=== PATIENT | female | born 1930 | race Caucasian/White ===

== ENCOUNTER 2016-11-17 05:14 | Inpatient (IN) | payer OTHER ==
[2016-09-10 12:48] VITALS: BMI 40.0
--- NOTE | 2016-09-10 13:13 | PAT Medication Instructions ---
Service Date Sep 10, 2016. Current Home Medication List Acetaminophen (Tylenol), 1,000 MG PO PRN Atorvastatin (Lipitor), 10 MG PO QPM Ibuprofen Tab (Advil), 400 MG PO PRN Levothyroxine Sodium (Levothyroxine Sodium), 1 TAB PO QAM Losartan Potassium (Cozaar), 25 MG PO QPM Metformin Hcl (Glucophage Ext Rel), 1,000 MG PO BID [Vitamin D], 1 TAB PO QAM Medication Instructions For Your Scheduled Surgery - Check with surgeon for instructions: Ibuprofen Tab (Advil), 400 MG PO PRN - Hold the following medications 48 hours prior to surgery: Metformin Hcl (Glucophage Ext Rel), 1,000 MG PO BID - Hold the following medications the morning of surgery: [Vitamin D], 1 TAB PO QAM - Take the following medications the morning of surgery with a sip of water: Levothyroxine Sodium (Levothyroxine Sodium), 1 TAB PO QAM Acetaminophen (Tylenol), 1,000 MG PO PRN (if needed) - Hold the following medications as scheduled the night before surgery: Losartan Potassium (Cozaar), 25 MG PO QPM - Take the following medications as scheduled the night before surgery: Atorvastatin (Lipitor), 10 MG PO QPM Acetaminophen (Tylenol), 1,000 MG PO PRN (if needed) If you have any questions please call us at [phone] or [phone] or [phone]
[2016-09-10 14:01] LABS: BASO % 0.2 %; BASO ABS # 0.03 K/uL (0-0.2); COMPLETE YES; EOS % 1.5 %; HEMATOCRIT 40.9 % (37-47); IG% 0.2 %; LYMPH % 30.6 %; LYMPH ABS # 4.37 K/uL (1.2-3.4); MEAN CORPUSCULAR HEMOGLOBIN 27.3 pg (25-34); MEAN CORPUSCULAR HGB CONC 32.5 g/dl (32-36); MEAN PLATELET VOLUME 10.4 fL (7.4-10.4); MONO % 6.2 %; NEUT % 61.3 %; PLATELET COUNT 343 K/uL (130-400); RED BLOOD COUNT 4.87 M/uL (4.2-5.4); WHITE BLOOD COUNT 14.26 K/uL (4.8-10.8)
[2016-09-10 14:11] LABS: PROTHROMBIN TIME (PATIENT) 10.2 SECONDS (9.0-12.0)
--- NOTE | 2016-09-10 14:14 | DIAGNOSTIC IMAGING REPORT ---
TWO VIEW CHEST CLINICAL HISTORY: Preoperative examination. FINDINGS: PA and lateral chest radiographs are obtained. No prior studies are available for comparison at the time of dictation. The PA view is degraded by patient rotation. The examination is also degraded by large body habitus. The heart is mildly enlarged and there is atherosclerotic calcification of the thoracic aorta. The pulmonary vasculature is noncongested. Nonspecific interstitial thickening is likely chronic. No airspace consolidation or pleural effusion is seen. A calcified granuloma is noted in the right upper lobe. There is no pneumothorax. The skeletal structures are osteopenic. The bony thorax appears intact. IMPRESSION: Mild cardiac enlargement with no active disease in the chest. Electronically signed by: Sae Hunt M.D. 09/10/2016 2:12 PM Dictated Date/Time: 09/10/2016 2:08 PM
[2016-09-10 14:23] LABS: URINE APPEARANCE CLEAR (CLEAR); URINE BILIRUBIN NEG (NEG); URINE COLOR YELLOW; URINE EPITHELIAL CELL AUTO >30 /lpf (0-5); URINE NITRITE NEG (NEG); URINE SPECIFIC GRAVITY 1.016 (1.000-1.030); UROBILINOGEN NEG (NEG); ZZUR CULT IF INDIC CLEAN CATCH YES
[2016-09-10 14:29] LABS: MANUAL MICROSCOPIC REQUIRED? NO; REVIEW REQ? YES
[2016-09-10 14:40] LABS: ESTIMATED AVERAGE GLUCOSE 220 mg/dl; HA1C FLAG Normal (Normal)
[2016-09-10 15:05] LABS: CREATININE 1.4 mg/dl (0.60-1.20)
[2016-09-10 15:06] LABS: BUN/CREATININE RATIO 27.8 (10-20); CALCIUM 9.4 mg/dl (8.5-10.1); POTASSIUM 4.4 mmol/L (3.5-5.1)
--- NOTE | 2016-10-29 08:05 | HISTORY & PHYSICAL EXAMINATION ---
DATE OF ADMISSION: 11/18/2016 CHIEF COMPLAINT: Left knee pain. HISTORY OF PRESENT ILLNESS: Ms. Moralez is an 86-year-old female with a 3-4 month history of left knee pain. The patient states her pain has gotten significantly worse over the last few weeks. She has failed injections, home walking program, NSAIDs. She currently ambulates with a walker. The patient has pain with her daily activities. She has limited standing and walking tolerance. Pain is worse with weightbearing. The patient has failed conservative treatment options and is now scheduled for left total knee arthroplasty. PAST SURGICAL HISTORY: Carpal tunnel bilateral, tarsal tunnel bilateral feet, right knee arthroscopy, hysterectomy. SOCIAL HISTORY: The patient denies alcohol or tobacco use. She lives in an apartment building with her daughter. She is retired. FAMILY HISTORY: Negative for DVT. MEDICATIONS: Levothyroxine 137 mcg, metformin 1000 mg, glyburide 2.5 mg, prednisone 10 mg, atorvastatin 10 mg, losartan 25 mg, metronidazole 0.75%, minocycline 50 mg daily. ALLERGIES: PENICILLIN, MORPHINE, HYDROCODONE, OXYCODONE, HYDROMORPHONE. REVIEW OF SYSTEMS: See HPI. Ten other systems reviewed, all negative. PHYSICAL EXAMINATION: VITAL SIGNS: Height 4 feet 10 inches, weight 192 pounds. BMI is 40. GENERAL: This is a well-developed, well-nourished female who is alert and oriented x3. Mood and affect are appropriate. HEENT: Normocephalic, atraumatic. Mucous membranes are moist and intact. NECK: Supple without lymphadenopathy. HEART: Regular rate and rhythm without murmurs, rubs or gallops. LUNGS: Clear to auscultation without wheezes or rhonchi. ABDOMEN: Soft and nontender. Bowel sounds are equal and active. EXTREMITIES: No ecchymosis, redness or warmth. She has a valgus deformity. Range of motion is from 0-100 degrees. She has no laxity. She is neurovascularly intact with +5/5 strength. X-RAY EXAMINATION: AP and lateral views show joint space narrowing and osteophyte formation. IMPRESSION: Degenerative joint disease, left knee. PLAN: The patient will be admitted for a left total knee arthroplasty. We will plan on aspirin for DVT prophylaxis. The patient is requesting possibly going to [facility] upon discharge.
[2016-10-29 16:14] VITALS: BMI 40.0
[~2016-11-17] VITALS: Ht 147.3 cm; Wt 87.4 kg
[2016-11-17] VITALS (8 sets, daily range): BP systolic 119–168; BP diastolic 65–76; PULSE 60–93; TEMP 36.4–36.9; O2SAT 91–99; Ht 147.3 cm; Wt 87.4 kg
[~2016-11-17 05:14] MED LIST: ACET-1256 PO; ATOR10TA88 PO; GLYB5TAB8 PO; IBUP-103 PO; LEVO137T3 PO; LOSA1TAB PO; METF1TAB53 PO; VITAMIN D PO
[2016-11-17] MEDS ORDERED: FAMOTIDINE 20 MG TAB PO SCH (06:00)
[2016-11-17] MEDS ORDERED: CLINDAMYCIN 600 MG/54 ML D5W IV SCH ×2 (06:00)
[2016-11-17] MEDS: TRANEXAMIC ACID INJ 1,000 MG in SODIUM CHLORIDE 0.9% 100ML 100 ML IV SCH ×2 (06:00→06:30)
[2016-11-17] MEDS ORDERED: METOCLOPRAMIDE HCL 10 MG TAB PO SCH (06:00)
[2016-11-17] MEDS ORDERED: ROPIVACAINE 5MG/ML 30 ML 150 MG, BUPIVACAINE/EPINEPHR 0.5% MPF 30 ML, KETOROLAC TROMETH... INFIL SCH ×7 (06:00)
[2016-11-17] MEDS ORDERED: LACTATED RINGER'S 1000ML 1,000 ML IV SCH ×2 (06:00)
[2016-11-17] MEDS ORDERED: GABAPENTIN 300 MG CAP PO SCH (06:00)
[2016-11-17] MEDS ORDERED: CeleBREX 200 MG CAP PO SCH (06:00)
[2016-11-17] MEDS ORDERED: VANCOMYCIN INJ 1,300 MG in SODIUM CHLORIDE 0.9% 250ML 250 ML IV SCH (06:00)
[2016-11-17] MEDS ORDERED: ACETAMINOPHEN 500 MG TAB PO SCH (06:00)
[2016-11-17] MEDS ORDERED: DEXAMETHASONE 4 MG TAB PO SCH (06:00)
[2016-11-17] MEDS ORDERED: LACTATED RINGER'S 1000ML 500 ML IV ONE (06:00)
[2016-11-17] MEDS ORDERED: BUPIVACAINE 0.25% 30 ML VIAL ONE (06:26)
[2016-11-17] MEDS ORDERED: BUPIVACAINE 0.5 % 5 MG/1 ML PF 10ML VIAL ONE (06:26)
[2016-11-17 06:42] LABS: PARTIAL THROMBOPLASTIN RATIO 0.9; PROTHROMBIN TIME (PATIENT) 10.3 SECONDS (9.0-12.0)
[2016-11-17] MEDS ORDERED: MIDAZOLAM HCL 1 MG/ML 2ML VIAL ONE ×2 (06:45→07:50)
[2016-11-17] MEDS ORDERED: FENTANYL CITRATE INJ 50 MCG/1 ML 2 ML VIAL ONE (06:46)
[2016-11-17] MEDS ORDERED: ORTHO JOINT ANESTHETIC ONE (06:52)
[2016-11-17] MEDS ORDERED: BACITRACIN 50000 UNIT VIAL ONE ×2 (06:52→08:02)
[2016-11-17] MEDS ORDERED: POVIDONE-IODINE OP SOLN 30 ML BTL ONE ×2 (06:52→08:02)
--- NOTE | 2016-11-17 06:54 | History & Physical Bridge Note ---
H&P Re-Evaluation Bridge Note: I have examined the patient, reviewed the History & Physical and in the interval since the performance of the History & Physical I have noted the following changes of clinical significance: No changes noted
[2016-11-17] MEDS ORDERED: PROPOFOL IV EMULSION 10 MG/ML 20 ML VIAL IV ONE (07:55)
[2016-11-17] MEDS ORDERED: LIDOCAINE HCL 2% 2 ML VIAL (20MG/ML) ONE (07:55)
[2016-11-17] MEDS ORDERED: KETOROLAC TROMETHAMINE 15 MG/ML VIAL IV. PRN (09:00)
[2016-11-17] MEDS ORDERED: LABETALOL HCL IV 5 MG/ML 20ML IV PRN (09:00)
[2016-11-17] MEDS ORDERED: ONDANSETRON INJ 2 MG/ML 2 ML VIAL IV PRN ×2 (09:00→09:45)
[2016-11-17] MEDS ORDERED: HYDROmorphone INJ 1 MG/ML SYR IV PRN (09:00)
[2016-11-17] MEDS ORDERED: MEPERIDINE HCL 25 MG/ML CARP IV PRN ×2 (09:00→09:45)
[2016-11-17] MEDS ORDERED: ATROPINE SULFATE 0.1 MG/ML 5ML SYR IV PRN (09:00)
[2016-11-17] MEDS ORDERED: FENTANYL CITRATE INJ 50 MCG/1 ML 2 ML VIAL IV PRN (09:00)
[2016-11-17] MEDS ORDERED: EpHEDrine SULFATE INJ 50 MG/ML AMP IV PRN (09:00)
--- NOTE | 2016-11-17 09:07 | [facility] Operative Report ---
Operative Report Operative Date Nov 17, 2016. Pre-Operative Diagnosis Left Knee Degenerative Joint Disease Post-Operative Diagnosis Same as Preop Procedure(s) Performed Left Total Knee Arthroplasty utilizing [employer] journey 2 patient matched total knee arthroplasty size 4 femur to tibia 11 poly-[address] Crockett Him Specialist Surgeon(s) Narendra Reed PA-C Estimated Blood Loss 5 ml Findings Severe DJD with valgus alignment left knee conservative management Specimens A. 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 bilateral degenerative joint disease left knee with valgus alignment to a conservative management presents for left total knee arthroplasty thorough discussion regarding risk altercations Description of Procedure After proper prepping and draping of the left lower extremity anterior midline incision was made over the region of the extensor extensor mechanism after meticulous hemostasis was obtained and maintained in subcutaneous tissues a medial parapatellar incision was made The patella was subluxed lateralward the medial lateral gutter were cleaned from any hypertrophic synovitis and scar tissue of the distal femoral block was placed and the distal femoral osteotomy cut was made subsequently the chamfers anterior and posterior osteotomy cuts were made utilizing the 4-in-1 block the tibia was subsequently subluxed anteriorward medial and ateral meniscal remnants were excised in their entirety remnants of the anterior and posterior cruciate ligaments were excised in their entirety excellent exposure of the proximal tibia was obtained the tibial osteotomy guide was placed on the proximal tibial osteotomy cut was made once again the knee was irrigated with copious amounts of sterile saline solution the patella was subsequently everted lateralward thickened scar tissue around the patella was removed the patella was subsequently cut utilizing a freehand technique and was drilled prepared for final preparation and placement of patella socially flexion-extension gaps were checked and the equal and symmetric trials were placed to the appropriate femoral and tibial trials with poly-spacer being placed for equal flexion and extension gaps and full range of motion including extension to 0 and flexion to 140 the trial components after having been taken to recovery range of motion was subsequently removed meticulous hemostasis was obtained and maintained subsequently a knee block injection of joint cocktail including ropivacaine 0.5% 150 mg. Bupivacaine 0.5 % epinephrine 1-200,030 mL's toradol 30 mg dexamethasone 4 mg ketamine 10 mg clonidine 100 micrograms normal saline solution 30 mg was infiltrated into the soft tissues of the posterior knee medial lateral gutters and periosteal synovium special attention was paid to protect neurovascular structures at all times subsequently trial components having been removed the knee was irrigated with sterile saline solution. debris was removed the proximal tibia was subsequently prepared and was made ready for the placement of the tibial component tibial component was also cemented and tamped into position the femoral component was subsequently placed and cemented in the position the patellar component was subsequently cemented in position because hemostasis once again obtained and maintained wound having been thoroughly irrigated with debridement and debridement lavage was performed as well as a medial parapatellar incision closed with #1 Vicryl in interrupted fashion subcutaneous was closed with #2 Vicryl skin was closed with skin clips. PA-C was necessary for prepping and drapping as well as wound closure of deep fascia Sub cutaneous tissue and skin and was necessary for the case. A sterile compressive dressing was placed patient was taken to recovery in stable condition of report dictated by Bon I attest to the content of the Intraoperative Record and any orders documented therein. Any exceptions are noted below. I attest to the content of the Intraoperative Record and any orders documented therein. Any exceptions are noted below.
[2016-11-17] MEDS ORDERED: BISACODYL 10 MG SUPP PR PRN (09:45)
[2016-11-17] MEDS ORDERED: SOD PHOSPHATE/SOD BIPHOSPHATE ENEMA 132 ML BTL PR PRN (09:45)
[2016-11-17] MEDS ORDERED: ALUMINUM/MAGNESIUM/SIMETH (MAALOX MAX) 30 ML UDC PO PRN (09:45)
--- NOTE | 2016-11-17 10:08 | DIAGNOSTIC IMAGING REPORT ---
LEFT KNEE 2 VIEWS History: Left total knee arthroplasty. Degenerative arthritis. Postop. FINDINGS: The patient is status post a left total knee arthroplasty. The hardware is intact. No fracture or dislocation. Surgical drains are in place. IMPRESSION: Left total knee arthroplasty. No evidence for hardware complication. Electronically signed by: Umberto Ta M.D. 11/17/2016 10:07 AM Dictated Date/Time: 11/17/2016 10:06 AM
--- NOTE | 2016-11-17 11:37 | Anesthesiology Progress Note ---
Anesthesia Post Op Note Date & Time Nov 17, 2016 at 11:37 Vital Signs Pain Intensity: 0.0 Vital Signs Past 12 Hours Date Time Temp Pulse Resp B/P (MAP) Pulse Ox O2 Delivery O2 Flow Rate FiO2 11/17/16 11:15 36.6 74 18 121/74 (90) 95 Nasal Cannula 2.0 11/17/16 10:45 94 Nasal Cannula 4.0 11/17/16 10:45 Nasal Cannula 4.0 11/17/16 10:31 125/67 11/17/16 10:30 76 0 11/17/16 10:30 76 0 93 11/17/16 10:26 125/69 11/17/16 10:25 75 0 93 11/17/16 10:25 76 0 11/17/16 10:25 36.3 75 18 138/64 93 Nasal Cannula 2 11/17/16 10:21 138/64 11/17/16 10:20 76 4 11/17/16 10:20 76 4 92 11/17/16 10:16 129/68 11/17/16 10:15 74 5 93 11/17/16 10:15 75 5 11/17/16 10:11 130/64 11/17/16 10:10 76 7 11/17/16 10:10 76 7 93 11/17/16 10:06 129/65 11/17/16 10:05 76 6 11/17/16 10:05 79 6 94 11/17/16 10:01 132/68 11/17/16 10:00 75 3 98 11/17/16 10:00 74 3 11/17/16 09:56 130/62 11/17/16 09:55 74 8 11/17/16 09:55 74 8 98 11/17/16 09:51 133/59 11/17/16 09:50 72 7 11/17/16 09:50 72 7 98 11/17/16 09:46 138/65 11/17/16 09:45 73 4 98 11/17/16 09:45 73 4 11/17/16 09:41 136/72 11/17/16 09:40 75 12 96 11/17/16 09:40 36 73 16 136/72 98 Mask 10 11/17/16 09:40 75 12 11/17/16 05:56 36.9 93 18 168/76 95 Room Air Notes Mental Status: alert / awake / arousable, participated in evaluation Pt Amnestic to Procedure: Yes Nausea / Vomiting: adequately controlled Pain: adequately controlled Airway Patency, RR, SpO2: stable & adequate BP & HR: stable & adequate Hydration State: stable & adequate Neuraxial Anesthesia: was administered, sensory block is resolving Anesthetic Complications: no major complications apparent
[2016-11-17] MEDS: SODIUM CHLORIDE 0.9% 1000ML 1,000 ML IV SCH ×2 (11:44→21:18)
[2016-11-17] MEDS ORDERED: GLUCAGON FOR INJ 1 MG VIAL SQ PRN (13:00)
[2016-11-17] MEDS ORDERED: GLUCOSE 40% GEL 15 GM TUBE PO PRN (13:00)
[2016-11-17] MEDS ORDERED: DEXTROSE 50% 50 ML SYR IV PRN (13:00)
[2016-11-17] MEDS ORDERED: GLUCOSE 10 TABS/TUBE PO PRN (13:00)
--- NOTE | 2016-11-17 13:11 | Medical Consult ---
Consultation Date of Consultation: Nov 17, 2016. Attending Physician: Eleazar Crockett D.O. Reason for Consultation: post-op medical management of T2DM, etc History of Present Illness 86yo female with history of T2DM, HTN, and hyperlipidemia who underwent an elective left total knee replacement earlier today by Dr. Crockett. Prior to the surgery she had had 3-4 months of worsening pain in the left knee. She had used pain medications and injections to the knee without relief. Post-operatively she denied any complaints. Specifically, denied any chest pain , dyspnea, abdominal pain, nausea, emesis, headache, etc. Past Medical/Surgical History PMH: 1. T2DM 2. HTN 3. Hyperlipidemia 4. Hypothyroidism PSH: 1. MYRA with BSO 2. carpal tunnel and tarsal tunnel release 3. 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) Allergies Coded Allergies: Penicillins (Verified Allergy, Unknown, HIVES, 11/17/16) Codeine (Verified Adverse Reaction, Intermediate, "put me out for 6 hours ", 11/17/16) Hydromorphone (Verified Adverse Reaction, Intermediate, "put me out for 6 hours", 11/17/16) Propoxyphene (Verified Adverse Reaction, Intermediate, "puts me out for 6 hours", 11/17/16) Morphine (Verified Adverse Reaction, Unknown, MORPHINE,CODEINE AND RELATED -NAUSEA VOMITING FLUSHING, 11/16/16) HYDROCODONE,OXYCODONE, HYDROMORPHONE-NAUSEA AND VOMITING Home Medications Reported Home Medications Medications Dose Route/Sig Max Daily Dose Days Date Category Micronase (Glyburide) 5 Mg Tab 1.25 Mg PO QAM 10/29/16 Reported Tylenol (Acetaminophen) 500 Mg Tab 1,000 Mg PO PRN 09/10/16 Reported Advil (Ibuprofen) 200 Mg Tab 400 Mg PO PRN 09/10/16 Reported [Vitamin D] 1 Tab PO QAM 09/10/16 Reported Cozaar (Losartan Potassium) 25 Mg Tab 25 Mg PO QPM 09/10/16 Reported Lipitor (Atorvastatin Calcium) 10 Mg Tab 10 Mg PO QPM 09/10/16 Reported Glucophage Ext Rel (Metformin Hcl) 1,000 Mg Tab 1,000 Mg PO BID 09/10/16 Reported Levothyroxine Sodium 137 Mcg Tab 1 Tab PO QAM 90 09/10/16 Reported Current Inpatient Medications Current Inpatient Medications Medications (Trade) Dose Ordered Sig/German Route Start Time Stop Time Status Last Admin Dose Admin Acetaminophen (Tylenol Tab) 1,000 mg PREOP PO 11/17/16 06:00 11/17/16 18:00 11/17/16 06:23 1,000 MG Celecoxib (CeleBREX CAP) 200 mg PREOP PO 11/17/16 06:00 11/17/16 18:00 Dexamethasone (Decadron Tab) 8 mg PREOP PO 11/17/16 06:00 11/17/16 18:00 11/17/16 06:22 8 MG Famotidine (Pepcid Tab) 20 mg PREOP PO 11/17/16 06:00 11/17/16 18:00 11/17/16 06:23 20 MG Gabapentin (Neurontin Cap) 300 mg PREOP PO 11/17/16 06:00 11/17/16 18:00 11/17/16 06:22 300 MG Metoclopramide HCl (Reglan Tab) 10 mg PREOP PO 11/17/16 06:00 11/17/16 18:00 11/17/16 06:22 10 MG Tranexamic Acid 1000 mg/Sodium Chloride 110 ml @ 660 mls/hr TODAY@06,0630 IV 11/17/16 06:00 11/17/16 18:00 Vancomycin HCl 1300 mg/Sodium Chloride 276 ml @ 125 mls/hr TODAY@0600 IV 11/17/16 06:00 11/17/16 18:00 11/17/16 05:53 125 MLS/HR Lactated Ringer's 1,000 ml @ 60 mls/hr [id number] IV 11/17/16 06:00 11/17/16 22:39 Lactated Ringer's 1,000 ml @ 15 mls/hr Q24H IV 11/17/16 06:00 11/18/16 05:59 Miscellaneous Information (Order Awaiting Action) 1 ea Q2H N/A 11/16/16 22:00 12/16/16 21:59 Clindamycin Phosphate 54 ml @ 100 mls/hr PREOP IV 11/17/16 06:00 11/17/16 18:00 Fentanyl Citrate (Fentanyl Inj) 50 mcg Q5M PRN IV 11/17/16 09:00 11/17/16 14:00 Hydromorphone HCl (Dilaudid Inj) 0.5 mg Q5M PRN IV 11/17/16 09:00 11/17/16 14:00 Ketorolac Tromethamine (Toradol Inj) 15 mg ONE PRN IV. 11/17/16 09:00 11/17/16 14:00 Meperidine HCl (Demerol Inj) 25 mg Q5M PRN IV 11/17/16 09:00 11/17/16 14:00 Ondansetron HCl (Zofran Inj) 4 mg ONE PRN IV 11/17/16 09:00 11/17/16 14:00 Labetalol HCl (Normodyne IV) 5 mg Q5M PRN IV 11/17/16 09:00 11/17/16 14:00 Ephedrine Sulfate (EpHEDrine SULFATE INJ) 5 mg Q5M PRN IV 11/17/16 09:00 11/17/16 14:00 Atropine Sulfate (Atropine Sulfate 0.1MG/Ml Inj) 0.5 mg Q1M PRN IV 11/17/16 09:00 11/17/16 14:00 Sodium Chloride 1,000 ml @ 100 mls/hr Q10H IV 11/17/16 11:30 11/18/16 11:29 11/17/16 11:44 100 MLS/HR Clindamycin Phosphate 600 mg/ Dextrose 54 ml @ 100 mls/hr Q8H IV 11/17/16 18:00 11/18/16 02:33 Celecoxib (CeleBREX CAP) 200 mg BID PO 11/17/16 21:00 12/17/16 20:59 Acetaminophen (Tylenol Tab) 1,000 mg Q8H PO 11/17/16 18:00 12/17/16 17:59 Magnesium Hydroxide (Milk Of Magnesia Susp) 30 ml Q6H PRN PO 11/17/16 09:45 12/17/16 09:44 Bisacodyl (Dulcolax Supp) 10 mg DAILY PRN DC 11/17/16 09:45 12/17/16 09:44 Sodium Biphosphate/ Sodium Phosphate (Fleet Enema) 132 ml DAILY PRN DC 11/17/16 09:45 12/17/16 09:44 Senna (Senokot Tab) 17.2 mg HS PO 11/17/16 21:00 12/17/16 20:59 Docusate Sodium (coLACE CAP) 100 mg BID PO 11/17/16 21:00 12/17/16 20:59 Diphenhydramine HCl (Benadryl Cap) 25 mg Q8H PRN PO 11/17/16 09:45 12/17/16 09:44 Al Hydrox/Mg Hydrox/Simethicone (Maalox Max Susp) 15 ml Q4H PRN PO 11/17/16 09:45 12/17/16 09:44 Multivitamins (Multivitamin Tab) 1 tab QAM PO 11/18/16 09:00 12/18/16 08:59 Ondansetron HCl (Zofran Inj) 4 mg Q6H PRN IV 11/17/16 09:45 12/17/16 09:44 Pantoprazole Sodium (Protonix Tab) 40 mg QAM PO 11/18/16 09:00 12/18/16 08:59 Aspirin (Ecotrin Tab) 81 mg BID PO 11/17/16 21:00 12/17/16 20:59 Atorvastatin Calcium (Lipitor Tab) 10 mg QPM PO 11/17/16 21:00 12/17/16 20:59 Levothyroxine Sodium (Synthroid Tab) 137 mcg DAILYBB PO 11/18/16 06:00 12/18/16 05:59 Cholecalciferol (Vitamin D Tab) 1 inter.unit QAM PO 11/18/16 09:00 12/18/16 08:59 Tapentadol (Nucynta Er Tab) 50 mg Q12 PO 11/17/16 21:00 12/17/16 20:59 Tapentadol (Nucynta Tab) 1 tab for pain rating ... Q4H PRN PO 11/17/16 09:45 12/17/16 09:44 Meperidine HCl (Demerol Inj) 25 mg Q3HWA PRN IV 11/17/16 09:45 12/01/16 09:44 Review of Systems Constitutional: No fever, No chills, No sweats ENT: No nasal symptoms Respiratory: No cough, No dyspnea on exertion, No dyspnea at rest Cardiovascular: No chest pain Abdomen: No pain, No nausea, No vomiting, No diarrhea, No constipation, No GI bleeding Genitourinary - Female: No dysuria, No hematuria Neurologic: No paralysis, No weakness, No numbness/tingling, No vertigo, No balance problems Endocrine: No fatigue Integumentary: No rash Physical Exam Date Time Temp Pulse Resp B/P (MAP) Pulse Ox O2 Delivery O2 Flow Rate FiO2 11/17/16 11:45 36.4 72 12 119/73 (88) 96 Nasal Cannula 2.0 11/17/16 11:15 36.6 74 18 121/74 (90) 95 Nasal Cannula 2.0 11/17/16 10:45 94 Nasal Cannula 4.0 11/17/16 10:45 Nasal Cannula 4.0 11/17/16 10:31 125/67 11/17/16 10:30 76 0 11/17/16 10:30 76 0 93 11/17/16 10:26 125/69 11/17/16 10:25 75 0 93 11/17/16 10:25 76 0 11/17/16 10:25 36.3 75 18 138/64 93 Nasal Cannula 2 11/17/16 10:21 138/64 11/17/16 10:20 76 4 11/17/16 10:20 76 4 92 11/17/16 10:16 129/68 11/17/16 10:15 74 5 93 11/17/16 10:15 75 5 11/17/16 10:11 130/64 11/17/16 10:10 76 7 11/17/16 10:10 76 7 93 11/17/16 10:06 129/65 11/17/16 10:05 76 6 11/17/16 10:05 79 6 94 11/17/16 10:01 132/68 11/17/16 10:00 75 3 98 11/17/16 10:00 74 3 11/17/16 09:56 130/62 11/17/16 09:55 74 8 11/17/16 09:55 74 8 98 11/17/16 09:51 133/59 11/17/16 09:50 72 7 11/17/16 09:50 72 7 98 11/17/16 09:46 138/65 11/17/16 09:45 73 4 98 11/17/16 09:45 73 4 11/17/16 09:41 136/72 11/17/16 09:40 75 12 96 11/17/16 09:40 36 73 16 136/72 98 Mask 10 11/17/16 09:40 75 12 11/17/16 05:56 36.9 93 18 168/76 95 Room Air General Appearance: no apparent distress, + obese Head: normocephalic, atraumatic Eyes: PERRL ENT: pharynx normal Neck: no JVD Respiratory/Chest: lungs clear, no respiratory distress, no accessory muscle use Cardiovascular: regular rate, rhythm, no gallop, normal peripheral pulses, + systolic murmur (1/6 BRUCE LSB) Abdomen/GI: normal bowel sounds, non tender, soft, no organomegaly Extremities/Musculoskelatal: no pedal edema (right ankle), + pedal edema (left ankle), + pertinent finding (pulses 2+ b/l) Neurologic/Psych: no motor/sensory deficits, alert, normal reflexes, oriented x 3 Skin: no rash, + pertinent finding (left knee wrapped in large JEFF dressing; drain also in place) Laboratory Results Last 24 Hours Test 11/17/16 06:16 11/17/16 10:27 11/17/16 11:52 Prothrombin Time 10.3 SECONDS Prothromb Time International Ratio 1.0 Activated Partial Thromboplast Time 24.5 SECONDS Partial Thromboplastin Ratio 0.9 Albumin 3.9 gm/dl Bedside Glucose 202 mg/dl 213 mg/dl Assessment & Plan 86yo female with history of T2DM, HTN, and hyperlipidemia who underwent an elective left total knee replacement earlier today by Dr. Crockett. 1. left TKR - DVT proph, pain control, fluids, dispo planning - per orthopedic team. 2. T2DM - uncontrolled due to stress of surgery & perioperative steroids. Hold oral agents. Start lantus 10 units daily, first dose now. Novolog - use goal range of 140-180 with correction factor of 35 and carb ratio of 1:10. The steroids will have its effects for another 24 hours or so and thus additional insulin adjustments will be likely. 3. HTN - BPs are controlled at this time. Would hold the losartan until stability of creatinine can be confirmed by AM labs tomorrow. 4. hyperlipidemia - continue her statin agent. 5. CKD, stage uncertain - previous preop labs showed creatinine clearance of < 30 c/w stage 4 CKD. Will check BMP in am and follow. Caution with use of NSAIDS. 6. hypothyroidism - continue synthroid as previous. Thank you for this consult. Additional Copies To Yolis Bautista D.O.
[2016-11-17] MEDS ORDERED: INSULIN GLARGINE SOLOSTAR 100 UNITS/ML 3 ML PEN SC ONE (13:30)
--- NOTE | 2016-11-17 13:47 | Medical Student: [facility] ---
Consultation Date of Consultation: Nov 17, 2016. History of Present Illness Chula Moralez is an 86 year old woman with a history of Type II DM, HTN, Hyperlipidemia, Hypothyroidism, and Stage III CKD admitted for post operation observation following an elective total knee arthroplasty of the left knee this morning by Dr. Crockett. Prior to surgery, she had a 3-4 month history of left knee pain that began to affect her activities of daily living. She failed conservative treatment of joint injections and pain medication, and elected to have surgery. She was accompanied by her daughter in the room during my visit. Mrs. Quiros denies any complaints at this time. She denies headache, lightheadedness, chest pain, palpitations, shortness of breath, nausea, vomiting , numbness, paralysis, etc. Past Medical/Surgical History Medical History: PMH: 1. T2DM 2. CKD Stage III 3. HTN 4. Hyperlipidemia 5. Hypothyroidism Surgical History: PSH: 1. Total Abdonminal Hysterectomy with Bilateral Salpingo-Oophorectomy 2. Carpal tunnel and tarsal tunnel release 3. 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) Review of Systems Constitutional: No fever, No chills, No sweats Eyes: No worsening of vision, No problem reported ENT: + hearing loss (normal chronic hard of hearing), No problem reported Respiratory: No cough, No shortness of breath, No problem reported Cardiac: No chest pain, No palpitations Abdomen: No pain, No nausea, No vomiting, No diarrhea, No constipation, No GI bleeding Musculoskeletal: + problem reported (negative other than left leg due to surgery) Female : No dysuria, No hematuria Neurologic: No paralysis, No weakness, No numbness/tingling Heme: No abnormal bleeding/bruising, No problem reported Skin: No rash, No itch Allergies Coded Allergies: Penicillins (Verified Allergy, Unknown, HIVES, 11/17/16) Codeine (Verified Adverse Reaction, Intermediate, "put me out for 6 hours ", 11/17/16) Hydromorphone (Verified Adverse Reaction, Intermediate, "put me out for 6 hours", 11/17/16) Propoxyphene (Verified Adverse Reaction, Intermediate, "puts me out for 6 hours", 11/17/16) Morphine (Verified Adverse Reaction, Unknown, MORPHINE,CODEINE AND RELATED -NAUSEA VOMITING FLUSHING, 11/16/16) HYDROCODONE,OXYCODONE, HYDROMORPHONE-NAUSEA AND VOMITING Medications Current Inpatient Medications Medications (Trade) Dose Ordered Sig/German Route Start Time Stop Time Status Last Admin Dose Admin Acetaminophen (Tylenol Tab) 1,000 mg PREOP PO 11/17/16 06:00 11/17/16 18:00 11/17/16 06:23 1,000 MG Celecoxib (CeleBREX CAP) 200 mg PREOP PO 11/17/16 06:00 11/17/16 18:00 Dexamethasone (Decadron Tab) 8 mg PREOP PO 11/17/16 06:00 11/17/16 18:00 11/17/16 06:22 8 MG Famotidine (Pepcid Tab) 20 mg PREOP PO 11/17/16 06:00 11/17/16 18:00 11/17/16 06:23 20 MG Gabapentin (Neurontin Cap) 300 mg PREOP PO 11/17/16 06:00 11/17/16 18:00 11/17/16 06:22 300 MG Metoclopramide HCl (Reglan Tab) 10 mg PREOP PO 11/17/16 06:00 11/17/16 18:00 11/17/16 06:22 10 MG Tranexamic Acid 1000 mg/Sodium Chloride 110 ml @ 660 mls/hr TODAY@06,0630 IV 11/17/16 06:00 11/17/16 18:00 Vancomycin HCl 1300 mg/Sodium Chloride 276 ml @ 125 mls/hr TODAY@0600 IV 11/17/16 06:00 11/17/16 18:00 11/17/16 05:53 125 MLS/HR Lactated Ringer's 1,000 ml @ 60 mls/hr [id number] IV 11/17/16 06:00 11/17/16 22:39 Lactated Ringer's 1,000 ml @ 15 mls/hr Q24H IV 11/17/16 06:00 11/18/16 05:59 Clindamycin Phosphate 54 ml @ 100 mls/hr PREOP IV 11/17/16 06:00 11/17/16 18:00 Fentanyl Citrate (Fentanyl Inj) 50 mcg Q5M PRN IV 11/17/16 09:00 11/17/16 14:00 Hydromorphone HCl (Dilaudid Inj) 0.5 mg Q5M PRN IV 11/17/16 09:00 11/17/16 14:00 Ketorolac Tromethamine (Toradol Inj) 15 mg ONE PRN IV. 11/17/16 09:00 11/17/16 14:00 Meperidine HCl (Demerol Inj) 25 mg Q5M PRN IV 11/17/16 09:00 11/17/16 14:00 Ondansetron HCl (Zofran Inj) 4 mg ONE PRN IV 11/17/16 09:00 11/17/16 14:00 Labetalol HCl (Normodyne IV) 5 mg Q5M PRN IV 11/17/16 09:00 11/17/16 14:00 Ephedrine Sulfate (EpHEDrine SULFATE INJ) 5 mg Q5M PRN IV 11/17/16 09:00 11/17/16 14:00 Atropine Sulfate (Atropine Sulfate 0.1MG/Ml Inj) 0.5 mg Q1M PRN IV 11/17/16 09:00 11/17/16 14:00 Sodium Chloride 1,000 ml @ 100 mls/hr Q10H IV 11/17/16 11:30 11/18/16 11:29 11/17/16 11:44 100 MLS/HR Clindamycin Phosphate 600 mg/ Dextrose 54 ml @ 100 mls/hr Q8H IV 11/17/16 18:00 11/18/16 02:33 Celecoxib (CeleBREX CAP) 200 mg BID PO 11/17/16 21:00 12/17/16 20:59 Acetaminophen (Tylenol Tab) 1,000 mg Q8H PO 11/17/16 18:00 12/17/16 17:59 Magnesium Hydroxide (Milk Of Magnesia Susp) 30 ml Q6H PRN PO 11/17/16 09:45 12/17/16 09:44 Bisacodyl (Dulcolax Supp) 10 mg DAILY PRN VA 11/17/16 09:45 12/17/16 09:44 Sodium Biphosphate/ Sodium Phosphate (Fleet Enema) 132 ml DAILY PRN VA 11/17/16 09:45 12/17/16 09:44 Senna (Senokot Tab) 17.2 mg HS PO 11/17/16 21:00 12/17/16 20:59 Docusate Sodium (coLACE CAP) 100 mg BID PO 11/17/16 21:00 12/17/16 20:59 Diphenhydramine HCl (Benadryl Cap) 25 mg Q8H PRN PO 11/17/16 09:45 12/17/16 09:44 Al Hydrox/Mg Hydrox/Simethicone (Maalox Max Susp) 15 ml Q4H PRN PO 11/17/16 09:45 12/17/16 09:44 Multivitamins (Multivitamin Tab) 1 tab QAM PO 11/18/16 09:00 12/18/16 08:59 Ondansetron HCl (Zofran Inj) 4 mg Q6H PRN IV 11/17/16 09:45 12/17/16 09:44 Pantoprazole Sodium (Protonix Tab) 40 mg QAM PO 11/18/16 09:00 12/18/16 08:59 Aspirin (Ecotrin Tab) 81 mg BID PO 11/17/16 21:00 12/17/16 20:59 Atorvastatin Calcium (Lipitor Tab) 10 mg QPM PO 11/17/16 21:00 12/17/16 20:59 Levothyroxine Sodium (Synthroid Tab) 137 mcg DAILYBB PO 11/18/16 06:00 12/18/16 05:59 Cholecalciferol (Vitamin D Tab) 1 inter.unit QAM PO 11/18/16 09:00 12/18/16 08:59 Tapentadol (Nucynta Er Tab) 50 mg Q12 PO 11/17/16 21:00 12/17/16 20:59 Tapentadol (Nucynta Tab) 1 tab for pain rating ... Q4H PRN PO 11/17/16 09:45 12/17/16 09:44 Meperidine HCl (Demerol Inj) 25 mg Q3HWA PRN IV 11/17/16 09:45 12/01/16 09:44 Insulin Glargine (Lantus Solostar Pen) 10 units QAM SC 11/18/16 09:00 12/18/16 08:59 Insulin Aspart (novoLOG ASPART) SLIDING SCALE G... ACHS SC 11/17/16 17:15 12/17/16 17:14 Glucose (Glucose 40% Gel) 15-30 GRAMS 15 GRAMS... UD PRN PO 11/17/16 13:00 12/17/16 12:59 Glucose (Glucose Chew Tab) 4-8 Tablets 4 Tabl... UD PRN PO 11/17/16 13:00 12/17/16 12:59 Dextrose (Dextrose 50% 50ML Syringe) 25-50ML OF 50% DW IV FOR... UD PRN IV 11/17/16 13:00 12/17/16 12:59 Glucagon (Glucagon Inj) 1 mg UD PRN SQ 11/17/16 13:00 12/17/16 12:59 Physical Exam Date Time Temp Pulse Resp B/P (MAP) Pulse Ox O2 Delivery O2 Flow Rate FiO2 11/17/16 12:43 36.4 78 18 125/68 (87) 97 Nasal Cannula 4.0 11/17/16 11:45 36.4 72 12 119/73 (88) 96 Nasal Cannula 2.0 11/17/16 11:15 36.6 74 18 121/74 (90) 95 Nasal Cannula 2.0 11/17/16 10:45 94 Nasal Cannula 4.0 11/17/16 10:45 Nasal Cannula 4.0 11/17/16 10:31 125/67 11/17/16 10:30 76 0 11/17/16 10:30 76 0 93 11/17/16 10:26 125/69 11/17/16 10:25 75 0 93 11/17/16 10:25 76 0 11/17/16 10:25 36.3 75 18 138/64 93 Nasal Cannula 2 11/17/16 10:21 138/64 11/17/16 10:20 76 4 11/17/16 10:20 76 4 92 11/17/16 10:16 129/68 11/17/16 10:15 74 5 93 11/17/16 10:15 75 5 11/17/16 10:11 130/64 11/17/16 10:10 76 7 8/15/17 10:10 76 7 93 11/17/16 10:06 129/65 11/17/16 10:05 76 6 11/17/16 10:05 79 6 94 11/17/16 10:01 132/68 11/17/16 10:00 75 3 98 11/17/16 10:00 74 3 11/17/16 09:56 130/62 11/17/16 09:55 74 8 11/17/16 09:55 74 8 98 11/17/16 09:51 133/59 11/17/16 09:50 72 7 11/17/16 09:50 72 7 98 11/17/16 09:46 138/65 11/17/16 09:45 73 4 98 11/17/16 09:45 73 4 11/17/16 09:41 136/72 11/17/16 09:40 75 12 96 11/17/16 09:40 36 73 16 136/72 98 Mask 10 11/17/16 09:40 75 12 11/17/16 05:56 36.9 93 18 168/76 95 Room Air General Appearance: WD/WN, no apparent distress, + obese Eyes: bilateral eyes normal inspection, bilateral eyes PERRL, bilateral eyes EOMI ENT: normal ENT inspection, hearing grossly normal, pharynx normal Neck: supple, no adenopathy, thyroid normal, no JVD, trachea midline Respiratory: chest non-tender, lungs clear, normal breath sounds, no accessory muscle use Cardiovascular: regular rate, rhythm, no gallop, no murmur Abdomen: normal bowel sounds, non tender, soft, no organomegaly, + pertinent finding (surgical scars from hysterectomy) Musculoskeletal: normal, normal strength (5/5 throughout), pertinent finding ( Brace, bandages, dressing from knee surgery on left leg) Neurologic/Psychiatric: 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, no motor/sensory deficits, alert, normal mood/affect, oriented x 3 Skin: normal color, warm/dry, no rash Lymphatic: no adenopathy Laboratory Results Last 24 Hours Test 11/17/16 06:16 11/17/16 10:27 11/17/16 11:52 Prothrombin Time 10.3 SECONDS Prothromb Time International Ratio 1.0 Activated Partial Thromboplast Time 24.5 SECONDS Partial Thromboplastin Ratio 0.9 Albumin 3.9 gm/dl Bedside Glucose 202 mg/dl 213 mg/dl Assessment & Plan Chula Moralez is an 86 year old woman with a history of Type II DM, CKD Stage III , HTN, Hyperlipidemia, and hypothyroidism admitted for post-operative observation following an elective total knee arthroplasty this morning 2016. 1. Type II DM: Uncontrolled, Last two Blood Glucose measurements were 202 and 213 -Hold oral Metformin and Glyburide -Control Glucose with Glargine q am and sliding scale Insulin Aspart -Check blood glucose before meals and at bedtime 2. CKD Stage III -Bun 39, Cr 1.4, Estimate GFR=34.4 -Decreased blood volume from both surgery and NPO status could be contributing to elevated lab values -Re-check BMP and kidney function tomorrow -Renally dose any medications 3. HTN: controlled -Hold Losartan 4. Hyperlipidemia -Resume Atorvastatin 10 mg PO Daily 5. Hypothyroidism -Resume Levothyroxine 137 mcg PO daily
[2016-11-17] MEDS: TAPENTADOL HCL 50 MG TAB PO PRN (15:48)
[2016-11-17] MEDS: INSULIN ASPART 100 UNITS/ML 3 ML PEN SC SCH ×2 (18:10→21:31)
[2016-11-17] MEDS: CLINDAMYCIN IV 600 MG in DEXTROSE 5% 50ML 50 ML IV SCH (18:10)
[2016-11-17] MEDS: ACETAMINOPHEN 500 MG TAB PO SCH (18:11)
[2016-11-17 19:14] LABS: MANUAL MICROSCOPIC REQUIRED? NO; REVIEW REQ? NO; URINE APPEARANCE CLOUDY (CLEAR); URINE BILIRUBIN NEG (NEG); URINE COLOR YELLOW; URINE EPITHELIAL CELL AUTO 20-30 /lpf (0-5); URINE NITRITE POS (NEG); URINE SPECIFIC GRAVITY 1.018 (1.000-1.030); UROBILINOGEN NEG (NEG)
[2016-11-17] MEDS: CeleBREX 200 MG CAP PO SCH (21:00)
[2016-11-17] MEDS: ASPIRIN 81 MG ECTAB PO SCH (21:01)
[2016-11-17] MEDS: DOCUSATE SODIUM 100 MG CAP PO SCH (21:01)
[2016-11-17] MEDS: ATORVASTATIN 10 MG TAB PO SCH (21:01)
[2016-11-17] MEDS: SENNA 8.6 MG TAB PO SCH (21:01)
[2016-11-17] MEDS: TAPENTADOL ER 50 MG TABCR PO SCH (21:21)
[2016-11-18] MEDS: CLINDAMYCIN IV 600 MG in DEXTROSE 5% 50ML 50 ML IV SCH (01:38)
[2016-11-18] MEDS: ACETAMINOPHEN 500 MG TAB PO SCH ×3 (01:39→18:36)
[2016-11-18 03:23] VITALS: BP 120/66; PULSE 59; TEMP 36.4; O2SAT 93
[2016-11-18] MEDS: LEVOTHYROXINE 137 MCG TAB PO SCH (06:04)
[2016-11-18 06:57] LABS: HEMATOCRIT 34.4 % (37-47); MEAN CELL VOLUME 81.5 fL (80-100); MEAN CORPUSCULAR HEMOGLOBIN 26.8 pg (25-34); MEAN CORPUSCULAR HGB CONC 32.8 g/dl (32-36); MEAN PLATELET VOLUME 10.4 fL (7.4-10.4); PLATELET COUNT 316 K/uL (130-400); RED BLOOD COUNT 4.22 M/uL (4.2-5.4); WHITE BLOOD COUNT 19.69 K/uL (4.8-10.8)
[2016-11-18 07:06] LABS: PROTHROMBIN TIME (PATIENT) 10.5 SECONDS (9.0-12.0)
--- NOTE | 2016-11-18 07:21 | Orthopedic Progress Note ---
Orthopedic Progress Note Date of Service Nov 18, 2016. Subjective Post OP Day: 1 Reports: feeling well, pain controlled w PO medications, Denies: complaints, chest pain, SOB, nausea / vomiting, light headedness, calf pain Objective calves soft nontender, N/V intact, capillary refill less than 2 sec., dressing C /D/I, A&O x3, toes mobile, hemovac drainage (50cc/8 hours) Date Time Temp Pulse Resp B/P (MAP) Pulse Ox O2 Delivery O2 Flow Rate FiO2 11/18/16 03:23 36.4 59 14 120/66 (84) 93 Room Air 11/18/16 00:45 Room Air 11/17/16 22:58 36.4 60 14 125/68 (87) 91 Room Air 11/17/16 19:31 36.4 68 16 121/72 (88) 91 Room Air 11/17/16 15:45 Room Air 11/17/16 15:07 36.4 66 18 126/71 (89) 99 Nasal Cannula 4.0 11/17/16 13:54 36.4 74 18 123/65 (84) 97 Nasal Cannula 4.0 11/17/16 12:43 36.4 78 18 125/68 (87) 97 Nasal Cannula 4.0 11/17/16 11:45 36.4 72 12 119/73 (88) 96 Nasal Cannula 2.0 11/17/16 11:15 36.6 74 18 121/74 (90) 95 Nasal Cannula 2.0 11/17/16 10:45 94 Nasal Cannula 4.0 11/17/16 10:45 Nasal Cannula 4.0 11/17/16 10:31 125/67 11/17/16 10:30 76 0 11/17/16 10:30 76 0 93 11/17/16 10:26 125/69 11/17/16 10:25 75 0 93 11/17/16 10:25 76 0 11/17/16 10:25 36.3 75 18 138/64 93 Nasal Cannula 2 11/17/16 10:21 138/64 11/17/16 10:20 76 4 11/17/16 10:20 76 4 92 11/17/16 10:16 129/68 11/17/16 10:15 74 5 93 11/17/16 10:15 75 5 11/17/16 10:11 130/64 11/17/16 10:10 76 7 11/17/16 10:10 76 7 93 11/17/16 10:06 129/65 11/17/16 10:05 76 6 11/17/16 10:05 79 6 94 11/17/16 10:01 132/68 11/17/16 10:00 75 3 98 11/17/16 10:00 74 3 11/17/16 09:56 130/62 11/17/16 09:55 74 8 11/17/16 09:55 74 8 98 11/17/16 09:51 133/59 11/17/16 09:50 72 7 11/17/16 09:50 72 7 98 11/17/16 09:46 138/65 11/17/16 09:45 73 4 98 11/17/16 09:45 73 4 11/17/16 09:41 136/72 11/17/16 09:40 75 12 96 11/17/16 09:40 36 73 16 136/72 98 Mask 10 11/17/16 09:40 75 12 Laboratory Results 24 Hours: Test 11/18/16 06:11 Hematocrit 34.4 % Hemoglobin 11.3 g/dL Prothromb Time International Ratio 1.0 Prothrombin Time 10.5 SECONDS Assessment & Plan Assessment: POD #1 s/p Left TKA -pt/ot -dvt proph with anthony/scd/asa -plan for HSNVR when approved Had abnormal UA in September, states she was not treated at that time, sensitivity showing sensitive to Bactrim. I started her on this am x 7 days, new culture pending. Per Medical Team: T2DM - holding oral agents, on SSI HTN - BPs are controlled at this time. Would hold the losartan until stability of creatinine can be confirmed by AM labs tomorrow. hyperlipidemia - continue her statin agent. CKD, stage uncertain hypothyroidism - continue synthroid Discharge Planning Discharge Planning: rehab hospital DVT Prophylaxis: TEDs, SCDs, ASA
[2016-11-18 07:24] LABS: BUN/CREATININE RATIO 27.8 (10-20); CALCIUM 8.3 mg/dl (8.5-10.1); CREATININE 1.2 mg/dl (0.60-1.20); POTASSIUM 4.7 mmol/L (3.5-5.1)
[2016-11-18 07:46] VITALS: BP 120/58; PULSE 60; TEMP 36.6; O2SAT 98
[2016-11-18] MEDS: SODIUM CHLORIDE 0.9% 1000ML 1,000 ML IV SCH (07:49)
[2016-11-18] MEDS: CeleBREX 200 MG CAP PO SCH ×2 (08:43→21:00)
[2016-11-18] MEDS: CHOLECALCIFEROL 1000 INTER.UNIT TAB PO SCH (08:45)
[2016-11-18] MEDS: DOCUSATE SODIUM 100 MG CAP PO SCH ×2 (08:45→21:37)
[2016-11-18] MEDS: MULTIVITAMIN TAB PO SCH (08:45)
[2016-11-18] MEDS: PANTOprazole SOD 40 MG TAB PO SCH (08:45)
[2016-11-18] MEDS: ASPIRIN 81 MG ECTAB PO SCH ×2 (08:45→21:36)
[2016-11-18] MEDS: INSULIN ASPART 100 UNITS/ML 3 ML PEN SC SCH ×4 (08:49→21:00)
[2016-11-18] MEDS: SULFAMETHOXAZOLE/TRIMETHOPRIM DS 800/160MG TAB PO SCH (08:50)
[2016-11-18] MEDS: INSULIN GLARGINE SOLOSTAR 100 UNITS/ML 3 ML PEN SC SCH (08:50)
[2016-11-18] MEDS: TAPENTADOL ER 50 MG TABCR PO SCH ×2 (08:51→21:40)
--- NOTE | 2016-11-18 09:34 | DIAGNOSTIC IMAGING REPORT ---
ULTRASOUND RIGHT LOWER EXTREMITY VENOUS CLINICAL HISTORY: Right leg pain. COMPARISON STUDY: Right lower extremity venous ultrasound dated 06/13/2014. TECHNIQUE: Real-time, grayscale, and color Doppler sonography of the deep veins of the right lower extremity was performed from the inguinal crease to the calf. Compression and augmentation were utilized. FINDINGS: There is no sonographic evidence of deep venous thrombosis identified in the right lower extremity. The common femoral, superficial femoral, and popliteal veins are patent and normally compressible. The greater saphenous vein and the profunda femoris vein at the junction with the common femoral vein are clear. The visualized calf veins are patent. IMPRESSION: There is no sonographic evidence of deep venous thrombosis identified in the right lower extremity. Electronically signed by: Sae Hunt M.D. 11/18/2016 9:33 AM Dictated Date/Time: 11/18/2016 9:32 AM
[2016-11-18 10:07] VITALS: O2SAT 98
[2016-11-18] MEDS: MAGNESIUM HYDROXIDE SUSP 30 ML UDC PO PRN (10:09)
[2016-11-18 12:11] VITALS: BP 104/62; PULSE 62; TEMP 36.6; O2SAT 96
--- NOTE | 2016-11-18 14:24 | Discharge Instructions ---
Discharge Instructions Date of Service Nov 18, 2016. Admission Reason for Admission: Left Knee Osteoarthritis Discharge Discharge Diagnosis / Problem: Left Total Knee Replacement Discharge Goals Goal(s): Decrease discomfort, Improve function, Increase independence Activity Recommendations Activity Level: Up Ad Mary Therapies: Physical Therapy (TKA protocol) Weightbearing Status: Left weightbearing (as tolerated) . Additional Information Patient informed of condition: Yes Advance Directives: No DNR: No Level of Care: Acute Rehab Communicable Disease: No Prognosis: Stable Instructions / Follow-Up Instructions / Follow-Up ACTIVITY RECOMMENDATIONS: SELF CARE INSTRUCTIONS AFTER TOTAL KNEE REPLACEMENT A. You may need to continue a physical therapy program after discharge from the hospital. There are several options available to you. Your doctor will assist you in selecting the best one for you. 1. An out-patient facility 2 to 3 times a week for therapy or home therapy. 2. Continue working on all exercises taught to you in the hospital. Your goals should be to increase bending of your knee to 90 degrees and beyond and to fully straighten your knee. B. You may progress at your own pace from walking with a walker or crutches to a cane; then to no assistive devices. C. Make walking a part of your daily routine. Be up as much as comfortable with rest periods throughout the day. Rest with leg elevation is very important. Use the ice wrap frequently for the first 3-4 weeks. D. There are no restrictions on activities. You may ride in a car, shop, participate in product manager e commerce and all social activities. E. Wear the long elastic stockings (JUAN PABLO hose) 20 hours a day for 2 weeks after surgery. They can be removed several times a day for laundering and for a bath. F. You may shower, no tub baths until cleared by your doctor. SPECIAL CARE INSTRUCTIONS: VERY IMPORTANT TO READ AND REVIEW A. There are a few signs you need to watch for after you are home. Call [facility] [place] if you notice any of the followin. Increased severe knee pain. Some pain is expected especially when you exercise. 2. Increased swelling in your leg or knee; pain or swelling of the calf muscle in either lower leg. 3. Any fluid drainage from the incision. 4. Shortness of breath or chest pain. B. Please call [facility] at if you have any concerns or questions about your operation or recovery. The doctor or his nurse will return your call promptly. C. You must take antibiotics before dental work, bladder, bowel or other surgery. Your doctor will provide you with a permanent care to carry describing this precaution. IMPORTANT: * REMEMBER TO TAKE ASPIRIN, 81 MG, TWICE DAILY FOR 4 WEEKS UNLESS OTHERWISE DIRECTED. THIS IS YOUR BLOOD THINNER. * HIGH RISK PATIENTS MAY BE PRESCRIBED A STRONGER BLOOD THINNER. THIS WILL BE PROVIDED AT DISCHARGE. * CALL IF INCREASED PAIN, REDNESS, DRAINAGE OR FEVER GREATER THAT 101. * WEAR JUAN PABLO HOSE 20 HOURS PER DAY FOR 2 WEEKS. * DERMABOND Prineo- This is a mesh tape dressing that is covered with glue. It should remain in place until the incision is properly healed, usually 10-14 days. This dressing is designed to naturally slough off. You may trim the excess mesh tape as it peels off. Incision may be briefly wet in a shower. Dry immediately by blotting with a clean, dry towel. Do not bath or swim until instructed by your doctor. Do not scratch, rub, or pick at the dressing. Do not apply any topical ointments or lotions until dressing is completely removed and/or instructed by your doctor. There may be a small piece of suture material at one end of your incision. Do not pull or trim this. If it is bothersome or catching on clothing, you may cover it with a band-aid. FOLLOW UP VISIT: If appointment is not already scheduled: Please call [facility] [place] to make a follow-up appointment for 2 weeks after your surgery at . Current Hospital Diet Patient's current hospital diet: Diabetes Type 2 Diet Discharge Diet Recommended Diet: Diabetes Type 2 Diet Procedures Procedures Performed: Left Total Knee Arthroplasty utilizing [employer] journey 2 patient matched total knee arthroplasty size 4 femur to tibia 11 poly-29 oval patella Pending Studies Studies pending at discharge: no Physician Orders On Transfer Dressing Changes: DERMABOND Prineo- This is a mesh tape dressing that is covered with glue. It should remain in place until the incision is properly healed, usually 10-14 days. This dressing is designed to naturally slough off. You may trim the excess mesh tape as it peels off. Incision may be briefly wet in a shower. Dry immediately by blotting with a clean, dry towel. Do not bath or swim until instructed by your doctor. Do not scratch, rub, or pick at the dressing. Do not apply any topical ointments or lotions until dressing is completely removed and/or instructed by your doctor. There may be a small piece of suture material at one end of your incision. Do not pull or trim this. If it is bothersome or catching on clothing, you may cover it with a band-aid. Laboratory Results Hemoglobin A1c Test 09/10/16 13:46 Range/Units Estimated Average Glucose 220 mg/dl Hemoglobin A1c 9.3 H 4.5-5.6 % Medical Emergencies . Who to Call and When: Medical Emergencies: If at any time you feel your situation is an emergency, please call 911 immediately. . Non-Emergent Contact Non-Emergency issues call your: Primary Care Provider, Surgeon . . "Provider Documentation" section prepared by Narendra Rede. . Core Measure Problem Core Measures: None [place] Drug Monitoring Program Search Results: patient reviewed within database, no issues identified
[2016-11-18 15:52] VITALS: BP 123/67; PULSE 67; TEMP 36.6; O2SAT 95
--- NOTE | 2016-11-18 18:12 | Progress Note ---
Internal Med Progress Note Date of Service: Nov 18, 2016. Provider Documentation: SUBJECTIVE: sitting on the chair comfortably ambulated ok pain under control 'no sob or cough afebrile OBJECTIVE: Vital Signs-as noted below Exam: General-alert and awake. Not in distress ENT-normal hearing Neck-no neck masses Lungs-cta b/l no wheezing or crackles Heart-s1 and s2 heard regular rhythm no murmurs Abdomen-soft bowel sounds present non tender no distension Extremities-no edema no erythema s/p left TKA Neuro-alert and awake moves extremities Lab data as noted below. ASSESSMENT & PLAN: 86yo female with history of T2DM, HTN, and hyperlipidemia who underwent an elective left total knee replacement earlier today by Dr. Crockett. 1. left TKR - DVT proph, pain control, , dispo planning - per orthopedic team. 2. T2DM - holding po meds Started lantus 10 units daily iss. will monitor. 3. HTN - stable to restart losartan in am 4. hyperlipidemia - on statin 5. CKD, stage 3 will f/u labs. 6. hypothyroidism - on Synthroid DVT PROPHYLAXIS as per ortho DISPOSITION as per ortho Vital Signs: Date Time Temp Pulse Resp B/P (MAP) Pulse Ox O2 Delivery O2 Flow Rate FiO2 11/18/16 15:52 36.6 67 18 123/67 (85) 95 Room Air 11/18/16 15:50 Room Air 11/18/16 12:11 36.6 62 16 104/62 (76) 96 Room Air 11/18/16 10:07 98 Room Air 11/18/16 07:46 36.6 60 18 120/58 (78) 98 Room Air 11/18/16 07:45 Room Air 11/18/16 03:23 36.4 59 14 120/66 (84) 93 Room Air 11/18/16 00:45 Room Air 11/17/16 22:58 36.4 60 14 125/68 (87) 91 Room Air 11/17/16 19:31 36.4 68 16 121/72 (88) 91 Room Air Lab Results: Results Past 24 Hours Test 11/17/16 18:55 11/17/16 20:49 11/18/16 06:11 11/18/16 08:00 Range/Units Urine Color YELLOW Urine Appearance CLOUDY CLEAR Urine pH 6.0 4.5-7.5 Urine Specific [place] 1.018 1.000-1.030 Urine Protein 1+ NEG Urine Glucose (UA) 1+ NEG Urine Ketones NEG NEG Urine Occult Blood TRACE NEG Urine Nitrite POS NEG Urine Bilirubin NEG NEG Urine Urobilinogen NEG NEG Urine Leukocyte Esterase LARGE NEG Urine WBC (Auto) >30 0-5 /hpf Urine RBC (Auto) 0-4 0-4 /hpf Urine Hyaline Casts (Auto) 1-5 0-5 /lpf Urine Epithelial Cells (Auto) 20-30 0-5 /lpf Urine Bacteria (Auto) 3+ NEG Bedside Glucose 247 176 70-90 mg/dl White Blood Count 19.69 4.8-10.8 K/uL Red Blood Count 4.22 4.2-5.4 M/uL Hemoglobin 11.3 12.0-16.0 g/dL Hematocrit 34.4 37-47 % Mean Corpuscular Volume 81.5 80-100 fL Mean Corpuscular Hemoglobin 26.8 25-34 pg Mean Corpuscular Hemoglobin Concent 32.8 32-36 g/dl RDW Standard Deviation 42.4 36.4-46.3 fL RDW Coefficient of Variation 14.1 11.5-14.5 % Platelet Count 316 130-400 K/uL Mean Platelet Volume 10.4 7.4-10.4 fL Prothrombin Time 10.5 9.0-12.0 SECONDS Prothromb Time International Ratio 1.0 0.9-1.1 Sodium Level 140 136-145 mmol/L Potassium Level 4.7 3.5-5.1 mmol/L Chloride Level 111 98-107 mmol/L Carbon Dioxide Level 20 21-32 mmol/L Anion Gap 9.0 3-11 mmol/L Blood Urea Nitrogen 33 7-18 mg/dl Creatinine 1.20 0.60-1.20 mg/dl Est Creatinine Clear Calc Drug Dose 32.8 ml/min Estimated GFR () 48.1 Estimated GFR (Non- 41.5 BUN/Creatinine Ratio 27.8 10-20 Random Glucose 171 70-99 mg/dl Calcium Level 8.3 8.5-10.1 mg/dl Test 11/18/16 12:07 11/18/16 17:07 Range/Units Bedside Glucose 166 166 70-90 mg/dl Microbiology Results 11/17/16 Urine Culture - Preliminary, Resulted Gram Negative Bacilli
[2016-11-18] MEDS: TAPENTADOL HCL 50 MG TAB PO PRN (18:36)
[2016-11-18] MEDS: ATORVASTATIN 10 MG TAB PO SCH (21:37)
[2016-11-18] MEDS: SENNA 8.6 MG TAB PO SCH (21:37)
[2016-11-18 22:46] VITALS: BP 149/75; PULSE 68; TEMP 36.6; O2SAT 95
[2016-11-19] MEDS: ACETAMINOPHEN 500 MG TAB PO SCH ×3 (01:09→17:45)
[2016-11-19] MEDS: LEVOTHYROXINE 137 MCG TAB PO SCH (05:55)
[2016-11-19 07:25] VITALS: BP 120/82; PULSE 62; TEMP 36.5; O2SAT 95
--- NOTE | 2016-11-19 07:27 | Orthopedic Progress Note ---
Orthopedic Progress Note Date of Service Nov 19, 2016. Subjective Post OP Day: 2 (s/p Left TKA) Reports: feeling well, pain controlled w PO medications, Denies: complaints, chest pain, SOB, nausea / vomiting, light headedness, calf pain Objective calves soft nontender, N/V intact, capillary refill less than 2 sec., incision C /D/I, A&O x3, toes mobile Date Time Temp Pulse Resp B/P (MAP) Pulse Ox O2 Delivery O2 Flow Rate FiO2 11/19/16 01:35 Room Air 11/18/16 22:46 36.6 68 16 149/75 (99) 95 Room Air 11/18/16 15:52 36.6 67 18 123/67 (85) 95 Room Air 11/18/16 15:50 Room Air 11/18/16 12:11 36.6 62 16 104/62 (76) 96 Room Air 11/18/16 10:07 98 Room Air 11/18/16 07:46 36.6 60 18 120/58 (78) 98 Room Air 11/18/16 07:45 Room Air Assessment & Plan Assessment: POD #2 s/p Left TKA -pt/ot -dvt proph with anthony/scd/asa -plan for [facility] when approved, likely this afternoon Had abnormal UA in September, states she was not treated at that time, sensitivity showing sensitive to Bactrim. I started her on this am x 7 days, new culture with same growth. will keep on bactrim once daily x 7 days Per Medical Team: T2DM - holding oral agents, on SSI HTN - BPs are controlled at this time. Would hold the losartan until stability of creatinine can be confirmed by AM labs tomorrow. hyperlipidemia - continue her statin agent. CKD, stage uncertain hypothyroidism - continue synthroid Discharge Planning Discharge Planning: rehab hospital DVT Prophylaxis: TEDs, SCDs, ASA
[2016-11-19] MEDS ORDERED: ONDA8TAB6 PO (07:30)
[2016-11-19] MEDS ORDERED: CLB200 PO (07:30)
[2016-11-19] MEDS ORDERED: ASPEC81 PO (07:30)
[2016-11-19] MEDS ORDERED: CLC100 PO (07:30)
[2016-11-19] MEDS ORDERED: NCYSR50 PO (07:30)
[2016-11-19] MEDS ORDERED: NCY50 PO (07:30)
[2016-11-19] MEDS ORDERED: ACET-24 PO (07:30)
[2016-11-19 07:44] VITALS: O2SAT 95
[2016-11-19] MEDS ORDERED: SULF-183 PO (08:02)
--- NOTE | 2016-11-19 08:02 | Discharge Summary ---
Orthopedic Discharge Summary Admission Date/Reason Nov 17, 2016 at 06:10 Left Knee Osteoarthritis. Discharge Date/Disposition Nov 19, 2016 Rehab Diagnosis Principal Diagnosis: left knee osteoarthritis Procedure(s) Performed Left Total Knee Arthroplasty utilizing [employer] amborsioney 2 patient matched total knee arthroplasty size 4 femur to tibia 11 poly-[address] Waggoner - medical management Medication Reconciliation New Medications: Ondansetron Hcl (Zofran) 8 Mg Tab 8 MG PO Q8 PRN for Nausea, #20 TAB Acetaminophen (Sb Non-Aspirin Extra Stre) 500 Mg Tab 1000 MG PO Q8H, #126 TAB Aspirin (Aspirin EC Low Dose) 81 Mg Ectab 81 MG PO BID for 30 Days, #60 TAB Celecoxib (Celebrex) 200 Mg Cap 200 MG PO BID for 30 Days, #60 CAP Docusate Sodium (Docusate Sodium) 100 Mg Cap 100 MG PO BID for 10 Days, #20 CAP Tapentadol HCl (Nucynta ER) 50 Mg Tabcr 50 MG PO Q12, #20 Tapentadol HCl (Nucynta) 50 Mg Tab 50-100 MG PO Q4H PRN for Pain, #60 TAB Continued Medications: Atorvastatin (Lipitor) 10 Mg Tab 10 MG PO QPM, TAB Glyburide (Micronase) 5 Mg Tab 1.25 MG PO QAM, TAB Levothyroxine Sodium (Levothyroxine Sodium) 137 Mcg Tab 1 TAB PO QAM for 90 Days, #90 TAB 3 Refills Losartan Potassium (Cozaar) 25 Mg Tab 25 MG PO QPM, TAB Metformin Hcl (Glucophage Ext Rel) 1,000 Mg Tab 1000 MG PO BID, TAB [Vitamin D] () 1 TAB PO QAM Discontinued Medications: Acetaminophen (Tylenol) 500 Mg Tab 1000 MG PO PRN, TAB Ibuprofen Tab (Advil) 200 Mg Tab 400 MG PO PRN, TAB Admission Physical Exam As per Admitting History & Physical. Hospital Course Patient was a same day admission after undergoing a successful left TKA. she tolerated the procedure well. Post-operatively, her activity was progressed and well tolerated. Please refer to daily progress notes and PT notes for complete details. After exam on 11/19/16, patient felt to be stable for transfer to [facility]. Patient will f/u in the office in 2 weeks for further evaluation including x-rays and incision check, sooner if having any issues or concerns. Will have her on bactrim x 7 days total for uncomplicated UTI. Below are pertinent labs/studies during their hospital stay: Last Vital Signs Documentation Date Time Temp Pulse Resp B/P (MAP) Pulse Ox O2 Delivery O2 Flow Rate FiO2 11/19/16 07:44 95 Room Air 11/19/16 07:25 36.5 62 18 120/82 (95) 11/17/16 15:07 4.0 Last Resulted CBC 11/18/16 06:11 Last Resulted BMP 11/18/16 06:11 Discharge Instructions Please refer to the electronic Patient Visit Report (Discharge Instructions) for additional information.
[2016-11-19] MEDS: CeleBREX 200 MG CAP PO SCH (08:24)
[2016-11-19] MEDS: ASPIRIN 81 MG ECTAB PO SCH (08:35)
[2016-11-19] MEDS: DOCUSATE SODIUM 100 MG CAP PO SCH (08:35)
[2016-11-19] MEDS: MULTIVITAMIN TAB PO SCH (08:35)
[2016-11-19] MEDS: TAPENTADOL ER 50 MG TABCR PO SCH (08:36)
[2016-11-19] MEDS: PANTOprazole SOD 40 MG TAB PO SCH (08:36)
[2016-11-19] MEDS: SULFAMETHOXAZOLE/TRIMETHOPRIM DS 800/160MG TAB PO SCH (08:37)
[2016-11-19] MEDS: CHOLECALCIFEROL 1000 INTER.UNIT TAB PO SCH (08:45)
[2016-11-19] MEDS: MAGNESIUM HYDROXIDE SUSP 30 ML UDC PO PRN (08:45)
[2016-11-19] MEDS ORDERED: CHOLECALCIFEROL 1000 INTER.UNIT TAB PO SCH (09:00)
[2016-11-19] MEDS: INSULIN ASPART 100 UNITS/ML 3 ML PEN SC SCH ×3 (09:04→17:47)
[2016-11-19] MEDS: INSULIN GLARGINE SOLOSTAR 100 UNITS/ML 3 ML PEN SC SCH (09:06)
[2016-11-19 10:45] VITALS: BP 153/73; PULSE 70; TEMP 36.6; O2SAT 95
[2016-11-19] MEDS: TAPENTADOL HCL 50 MG TAB PO PRN ×2 (13:10→17:47)
[2016-11-19 15:58] VITALS: BP 153/73; PULSE 70; TEMP 36.6; O2SAT 95
== END 2016-11-19 18:52 | DRG 470 ==
LOC: C.ACU 05:14 → C.3E 06:10 → ENRESERV 10:11
PROVIDERS: ADMIT Orthopaedic Surgery; ATTEND Orthopaedic Surgery
PROC: 0SRD0J9 Replacement of Left Knee Joint with Synthetic Substitute, Cemented, Open Approach (ICD-10-PCS; principal; 2016-11-17 07:15)
DX: M17.12 Unilateral primary osteoarthritis, left knee (principal); N39.0 Urinary tract infection, site not specified; N18.4 Chronic kidney disease, stage 4 (severe); Z68.41 Body mass index [BMI] 40.0-44.9, adult; M21.062 Valgus deformity, not elsewhere classified, left knee; I12.9 Hypertensive chronic kidney disease with stage 1 through stage 4 chronic kidney disease, or unspecified chronic kidney disease; E11.65 Type 2 diabetes mellitus with hyperglycemia; T38.0X5A Adverse effect of glucocorticoids and synthetic analogues, initial encounter; E11.22 Type 2 diabetes mellitus with diabetic chronic kidney disease; E78.5 Hyperlipidemia, unspecified; E03.9 Hypothyroidism, unspecified; L71.9 Rosacea, unspecified; E66.01 Morbid (severe) obesity due to excess calories; Z79.2 Long term (current) use of antibiotics; Z79.52 Long term (current) use of systemic steroids; Z79.84 Long term (current) use of oral hypoglycemic drugs; Z79.899 Other long term (current) drug therapy

== ENCOUNTER 2017-10-24 13:54 | Inpatient (IN) | payer OTHER ==
[~2017-10-24] VITALS: Ht 152.4 cm; Wt 86.3 kg
[~2017-10-24 13:54] MED LIST changes: +AMLO2.5T PO; +ATOR10TA82 PO; -ATOR10TA88 PO; +CALC500C70 PO; +CHOL1000 PO; -GLYB5TAB8 PO; -IBUP-103 PO; -LEVO137T3 PO; -LOSA1TAB PO; +RXC5 PO; +SYN100 PO; -VITAMIN D PO
[2017-10-24 14:10] VITALS: BP 160/76; PULSE 72; TEMP 36.9; O2SAT 99
[2017-10-24] MEDS ORDERED: ONDANSETRON INJ 2 MG/ML 2 ML VIAL IV PRN (14:15)
[2017-10-24] MEDS ORDERED: ACETAMINOPHEN 325 MG TAB PO PRN (14:15)
[2017-10-24] MEDS ORDERED: TRAMADOL HCL 50 MG TAB PO PRN (14:15)
--- NOTE | 2017-10-24 14:53 | Medical Consult ---
Consultation Date of Consultation: Oct 24, 2017. Attending Physician: Wiley Marin D.O. Reason for Consultation: Medical Management History of Present Illness Patient is an 87-year-old female with past medical history of type 2 diabetes mellitus, CKD stage III, hypothyroidism, dyslipidemia, HTN, lumbar stenosis, S/ P Left TKA and other problems presents with history of worsening low back pain since 2 weeks duration. Patient had revision decompression fusion of L3-L5 [address] Marin. Patient states having worsening lower back pain at the surgical site for which she has seen Dr. Marin as outpatient on Wednesday and was prescribed oral antibiotics (Unknown) which she has been taking since 5 days. Low back pain is aching type, severe, nonradiating, increases with movement and walking. Patient's daughter noticed increased erythema at the surgical site period. She reports having left lower extremity weakness since the surgery and has been using walker for ambulation. She states having intermittent nausea and has decreased appetite lately. She has been using Advil and Tylenol for pain control but has been uncontrolled. Denies any history of chest pain, SOB, cough, fever, chills, fall, headache, Tingling, numbness, change in vision, vomiting, abdominal pain, diarrhea, dysuria. Family History Hypertension Family history reviewed, not relevant Social History Smoking Status: Never Smoker Alcohol Use: none Drug Use: none Marital Status: Housing Status: lives with family Occupation Status: retired Allergies Coded Allergies: Penicillins (Verified Allergy, Unknown, HIVES, 09/30/17) Codeine (Verified Adverse Reaction, Intermediate, "put me out for 6 hours ", 09/30/17) Hydromorphone (Verified Adverse Reaction, Intermediate, "put me out for 6 hours", 09/30/17) Propoxyphene (Verified Adverse Reaction, Intermediate, "puts me out for 6 hours", 09/30/17) Morphine (Verified Adverse Reaction, Unknown, MORPHINE,CODEINE AND RELATED -NAUSEA VOMITING FLUSHING, 09/30/17) HYDROCODONE,OXYCODONE, HYDROMORPHONE-NAUSEA AND VOMITING Home Medications Reviewed Current Inpatient Medications Current Inpatient Medications Medications (Trade) Dose Ordered Sig/German Route Start Time Stop Time Status Last Admin Dose Admin Lactated Ringer's 1,000 ml @ 75 mls/hr [id number] IV 10/24/17 14:01 11/23/17 14:00 Acetaminophen (Tylenol Tab) 650 mg Q6H PRN PO 10/24/17 14:15 11/23/17 14:14 Docusate Sodium (coLACE CAP) 100 mg BID PO 10/24/17 21:00 11/23/17 20:59 Ondansetron HCl (Zofran Inj) 4 mg Q6H PRN IV 10/24/17 14:15 11/23/17 14:14 Oxycodone/ Acetaminophen (Percocet 5-325mg Tab) Moderate to Severe holger... Q4H PRN PO 10/24/17 14:15 11/07/17 14:14 Tramadol HCl (Ultram Tab) 50 mg Q8H PRN PO 10/24/17 14:15 11/23/17 14:14 Amlodipine Besylate (Norvasc Tab) 2.5 mg DAILY PO 10/25/17 09:00 11/24/17 08:59 Atorvastatin Calcium (Lipitor Tab) 10 mg QPM PO 10/24/17 21:00 11/23/17 20:59 Calcium/Vitamin D (Caltrate Plus Tab) 1 tab DAILY PO 10/25/17 09:00 11/24/17 08:59 Cholecalciferol (Vitamin D Tab) 1,000 inter.unit DAILY PO 10/25/17 09:00 11/24/17 08:59 Levothyroxine Sodium (Synthroid Tab) 100 mcg DAILYBB PO 10/25/17 06:00 11/24/17 05:59 Metformin HCl (Glucophage Extended Rel Tab) 1,000 mg BIDM PO 10/24/17 17:45 11/23/17 17:44 Clindamycin Phosphate 300 mg/ Dextrose 52 ml @ 100 mls/hr Q8H IV 10/24/17 15:00 11/03/17 14:59 Review of Systems See HPI for pertinent positives & negatives. A total of 10 systems reviewed and were otherwise negative. Physical Exam Date Time Temp Pulse Resp B/P (MAP) Pulse Ox O2 Delivery O2 Flow Rate FiO2 10/24/17 14:10 36.9 72 18 160/76 (104) 99 Room Air General Appearance: WD/WN, no apparent distress Head: normocephalic, atraumatic Eyes: normal inspection, PERRL, EOMI, sclerae normal ENT: normal ENT inspection, hearing grossly normal Neck: supple, trachea midline Respiratory/Chest: chest non-tender, lungs clear, normal breath sounds, no respiratory distress, no accessory muscle use Cardiovascular: regular rate, rhythm, no murmur, + pertinent finding (1+ bilateral lower extremity edema) Abdomen/GI: normal bowel sounds, non tender, soft Back: + paravertebral tenderness (Lower back surgical site erythematous, tender ), + pertinent finding Extremities/Musculoskelatal: normal inspection, + pedal edema 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 No acute process. MRI L-Spine: 1. Posterior decompression and fusion from L3 through L5 with pedicle screws and rods. 2. There is a fluid collection surrounding the pedicle screws and at the laminectomy site as described above. This demonstrates peripheral enhancement. Given the recent postoperative change this could represent a postoperative seroma. However, an abscess could also have a similar appearance. This fluid collection connects to the ill-defined fluid within the subcutaneous location of the lumbar spine deep to the incision site. 3. There is abnormal signal intensity and enhancement at the L4-5 endplates as well as mild paravertebral edema. There is a disc spacer at this location. Therefore, this could represent postoperative change. However, a developing discitis/osteomyelitis would also have a similar appearance. 4. Additional findings as described above. Assessment & Plan Lumbar Wound Infection H/O Lumbar Stenosis S/P revision decompression fusion of L3-L5, [address] Marin. Failed outpatient antibiotic therapy ---MRI Lumbar Spine suggestive of postoperative seroma. ? abscess; abnormal signal intensity and enhancement at the L4-5 endplates as well as mild paravertebral edema, Likely postoperative change but discitis/osteomyelitis would also have a similar appearance. Start IV vancomycin and Cefepime Blood cultures obtained Pain control Activity, Surgical management per Orthopedics PT/OT DM II: Last A1C:7.1 on 10/01/17 Will hold oral diabetic meds ISS, basal Insulin Monitor BGs CKD stage III Cr at baseline Monitor renal function avoid nephrotoxic agents as able Hypothyroidism Continue Levothyroxine Dyslipidemia Continue lipitor HTN continue amlodipine DVT Px: SCDs per Primary Team Disposition: Per Ortho Thank you for this consultation. We will follow the patient with you during their hospital stay. You can reach a member of [facility] 26/10 via pager @ .
[2017-10-24] MEDS ORDERED: IV FLUIDS COMPLETED PRN (15:00)
[2017-10-24] MEDS ORDERED: CLINDAMYCIN IV 300 MG in DEXTROSE 5% 50ML 50 ML IV SCH (15:00)
[2017-10-24 15:20] LABS: BASO % 0.3 %; BASO ABS # 0.03 K/uL (0-0.2); EOS % 3.1 %; EOS ABS # 0.37 K/uL (0-0.5); HEMATOCRIT 32.1 % (37-47); HEMOGLOBIN 10.5 g/dL (12.0-16.0); IG# 0.04 K/uL (0.00-0.02); LYMPH % 22.4 %; LYMPH ABS # 2.67 K/uL (1.2-3.4); MEAN CELL VOLUME 79.1 fL (80-100); MEAN CORPUSCULAR HEMOGLOBIN 25.9 pg (25-34); MEAN CORPUSCULAR HGB CONC 32.7 g/dl (32-36); MEAN PLATELET VOLUME 9.3 fL (7.4-10.4); MONO % 8.5 %; MONO ABS # 1.01 K/uL (0.11-0.59); NEUT % 65.4 %; NEUT ABS # 7.79 K/uL (1.4-6.5); PLATELET COUNT 592 K/uL (130-400); RED CELL DISTRIBUTION WIDTH CV 15.3 % (11.5-14.5); RED CELL DISTRIBUTION WIDTH SD 44.7 fL (36.4-46.3); WHITE BLOOD COUNT 11.91 K/uL (4.8-10.8)
[2017-10-24 15:27] LABS: ALBUMIN 3.1 gm/dl (3.4-5.0); ALKALINE PHOSPHATASE 132 U/L (45-117); ALT/SGPT 13 U/L (12-78); AST/SGOT 12 U/L (15-37); BLOOD UREA NITROGEN 28 mg/dl (7-18); CALCIUM 9.3 mg/dl (8.5-10.1); CARBON DIOXIDE 23 mmol/L (21-32); CREATININE 1.06 mg/dl (0.60-1.20); GLUCOSE 142 mg/dl (70-99); POTASSIUM 4.1 mmol/L (3.5-5.1); SODIUM 139 mmol/L (136-145); TOTAL PROTEIN 8.2 gm/dl (6.4-8.2)
[2017-10-24] MEDS ORDERED: CONSULT PHARMACY STA (16:10)
[2017-10-24] MEDS ORDERED: GLUCOSE 40% GEL 15 GM TUBE PO PRN (16:15)
[2017-10-24] MEDS ORDERED: DEXTROSE 50% 50 ML SYR IV PRN (16:15)
[2017-10-24] MEDS ORDERED: GLUCAGON FOR INJ 1 MG VIAL SQ PRN (16:15)
[2017-10-24] MEDS ORDERED: GLUCOSE 10 TABS/TUBE PO PRN (16:15)
[2017-10-24] MEDS ORDERED: CARBOHYDRATES FOR HYPOGLYCEMIA PO PRN (16:15)
--- NOTE | 2017-10-24 16:19 | DIAGNOSTIC IMAGING REPORT ---
CHEST 2 VIEWS ROUTINE HISTORY: lumbar infection COMPARISON: Chest x-ray 09/15/2017. FINDINGS: The heart remains borderline enlarged. No focal lung consolidations to suggest pneumonia. No evidence for pulmonary edema. Stable punctate calcified granuloma within the right midlung zone. Lumbar spinal fusion hardware is partially visualized. No pleural effusions. No pneumothorax. IMPRESSION: No significant change compared to the prior study. No acute process. Electronically signed by: Umberto Ta M.D. 10/24/2017 4:18 PM Dictated Date/Time: 10/24/2017 4:17 PM
[2017-10-24] MEDS ORDERED: VANCOMYCIN CONSULT ACTIVE PRN (16:30)
[2017-10-24] MEDS ORDERED: CEFEPIME CONSULT ACTIVE PRN (16:30)
[2017-10-24] MEDS ORDERED: GADAVIST IV PRN (17:00)
[2017-10-24] MEDS: INSULIN ASPART 100 UNITS/ML 3 ML PEN SC SCH ×2 (17:15→21:00)
[2017-10-24] MEDS: OXYCODONE/ACETAMINOPHEN 5-325 TAB PO PRN (17:28)
[2017-10-24] MEDS ORDERED: METFORMIN HCL 500 MG TABCR PO SCH (17:45)
[2017-10-24 18:00] VITALS: O2SAT 99; BMI 35.3; BMI 37.1
--- NOTE | 2017-10-24 18:17 | DIAGNOSTIC IMAGING REPORT ---
LUMBAR SPINE MRI WITH AND WITHOUT CONTRAST HISTORY: lumbar wound infection TECHNIQUE: Multiplanar multisequence MRI of the lumbar spine was performed both before and after the intravenous administration of contrast. COMPARISON: Lumbar spine 09/30/2017. FINDINGS: For the purpose of the report the L5-S1 disc space will be located on axial image 23 of 25. Alignment is intact. Levoscoliosis of the lumbar spine. No fractures within the lumbar spine. The L1-L2 and L2-L3 disc spaces are preserved. Posterior decompression fusion from L3 through L5 with pedicle screws and rods. The conus terminates at the L2-L3 disc space level. There is a left retroaortic renal vein. T2 hyperintense, T1 hypointense signal at the L4-5 endplates with mild surrounding paravertebral edema. These endplates demonstrate enhancement on the postcontrast sequences. There is a disc spacer at the L4-5 level which limits evaluation for disc abnormality. There is subcutaneous edema and a small amount of ill-defined fluid at the incision site from the L1-L5 levels. This ill-defined fluid canal to a deeper fluid collection at the laminectomy sites. This fluid collection surrounds the pedicle screws from the L3-L5 levels. This is best in the axial postcontrast sequences images 11 through 25. At the L5 level the fluid collection measures approximately 7.4 x 1.3 cm. Mild posterior abnormal enhancement at the L2-L3 level favors postoperative change. Posterior to the thecal sac at the laminectomy site at the L4-5 level there is a slightly T2 hyperintense and slightly T1 hyperintense area which demonstrates enhancement. This favors postoperative granulation tissue. This does not result significant mass effect along the thecal sac. This is best seen on axial image 19 of 25 and measures 1.6 x 0.9 cm. L1-L2: No significant central canal or neural foraminal narrowing. L2-L3: No significant central canal or neural foraminal narrowing. L3-L4: Small broad-based posterior disc bulge. No significant central canal narrowing due to the posterior decompression. There is moderate bilateral neural foraminal narrowing. L4-L5: Broad-based posterior disc bulge without significant central canal narrowing due to the posterior decompression. There is mild to moderate right and severe left neural foraminal narrowing. L5-S1: No central canal narrowing. There is mild right and mild to moderate left neural foraminal narrowing. IMPRESSION: 1. Posterior decompression and fusion from L3 through L5 with pedicle screws and rods. 2. There is a fluid collection surrounding the pedicle screws and at the laminectomy site as described above. This demonstrates peripheral enhancement. Given the recent postoperative change this could represent a postoperative seroma. However, an abscess could also have a similar appearance. This fluid collection connects to the ill-defined fluid within the subcutaneous location of the lumbar spine deep to the incision site. 3. There is abnormal signal intensity and enhancement at the L4-5 endplates as well as mild paravertebral edema. There is a disc spacer at this location. Therefore, this could represent postoperative change. However, a developing discitis/osteomyelitis would also have a similar appearance. 4. Additional findings as described above. Electronically signed by: Umberto Ta M.D. 10/24/2017 6:15 PM Dictated Date/Time: 10/24/2017 5:57 PM
[2017-10-24] MEDS ORDERED: VANCOMYCIN IV 1,750 MG in SODIUM CHLORIDE 0.9% 500ML 500 ML IV ONE (18:45)
[2017-10-24] MEDS ORDERED: CEFAZOLIN IV 2,000 MG in SYRINGE 0 ML IV ONE (18:45)
[2017-10-24] MEDS ORDERED: CEFEPIME IV 2,000 MG in SYRINGE 7.5 ML IV ONE (19:00)
[2017-10-24 20:00] VITALS: BP 153/67; PULSE 66; TEMP 36.4; O2SAT 99
--- NOTE | 2017-10-24 21:48 | Pharmacy Progress Note ---
Pharmacy Antibiotic Consult Date of Service: Oct 24, 2017. Pharmacy Dosing Scope Pharmacy is consulted to initiate vancomycin and cefepime IV dosing therapy, order appropriate labs and adjust drug dose/frequency. Subjective The patient is a 87 year old female admitted on Oct 24, 2017 at 13:54. Objective Height (Feet): 5 Height (Inches): 0.00 Weight (Kilograms): 82.000 Lab Results (24hrs): Test 10/24/17 00:00 10/24/17 14:38 10/24/17 17:23 10/24/17 19:59 Urine Color YELLOW Urine Appearance CLEAR (CLEAR) Urine pH 5.0 (4.5-7.5) Urine Specific [place] 1.019 (1.000-1.030) Urine Protein 1+ (NEG) Urine Glucose (UA) NEG (NEG) Urine Ketones NEG (NEG) Urine Occult Blood NEG (NEG) Urine Nitrite NEG (NEG) Urine Bilirubin NEG (NEG) Urine Urobilinogen NEG (NEG) Urine Leukocyte Esterase MODERATE (NEG) Urine WBC (Auto) 10-30 /hpf (0-5) Urine RBC (Auto) 0-4 /hpf (0-4) Urine Hyaline Casts (Auto) 1-5 /lpf (0-5) Urine Epithelial Cells (Auto) >30 /lpf (0-5) Urine Bacteria (Auto) NEG (NEG) Urine Yeast (Auto) BUDDING (NONE PRSENT) White Blood Count 11.91 K/uL (4.8-10.8) Red Blood Count 4.06 M/uL (4.2-5.4) Hemoglobin 10.5 g/dL (12.0-16.0) Hematocrit 32.1 % (37-47) Mean Corpuscular Volume 79.1 fL (80-100) Mean Corpuscular Hemoglobin 25.9 pg (25-34) Mean Corpuscular Hemoglobin Concent 32.7 g/dl (32-36) Platelet Count 592 K/uL (130-400) Mean Platelet Volume 9.3 fL (7.4-10.4) Neutrophils (%) (Auto) 65.4 % Lymphocytes (%) (Auto) 22.4 % Monocytes (%) (Auto) 8.5 % Eosinophils (%) (Auto) 3.1 % Basophils (%) (Auto) 0.3 % Neutrophils # (Auto) 7.79 K/uL (1.4-6.5) Lymphocytes # (Auto) 2.67 K/uL (1.2-3.4) Monocytes # (Auto) 1.01 K/uL (0.11-0.59) Eosinophils # (Auto) 0.37 K/uL (0-0.5) Basophils # (Auto) 0.03 K/uL (0-0.2) RDW Standard Deviation 44.7 fL (36.4-46.3) RDW Coefficient of Variation 15.3 % (11.5-14.5) Immature Granulocyte % (Auto) 0.3 % Immature Granulocyte # (Auto) 0.04 K/uL (0.00-0.02) Erythrocyte Sedimentation Rate > 140 mm/hr (0-21) Sodium Level 139 mmol/L (136-145) Potassium Level 4.1 mmol/L (3.5-5.1) Chloride Level 108 mmol/L (98-107) Carbon Dioxide Level 23 mmol/L (21-32) Anion Gap 8.0 mmol/L (3-11) Blood Urea Nitrogen 28 mg/dl (7-18) Creatinine 1.06 mg/dl (0.60-1.20) Estimated GFR () 55.4 Estimated GFR (Non- 47.8 BUN/Creatinine Ratio 26.3 (10-20) Random Glucose 142 mg/dl (70-99) Calcium Level 9.3 mg/dl (8.5-10.1) Total Bilirubin 0.2 mg/dl (0.2-1) Aspartate Amino Transf (AST/SGOT) 12 U/L (15-37) Alanine Aminotransferase (ALT/SGPT) 13 U/L (12-78) Alkaline Phosphatase 132 U/L (45-117) C-Reactive Protein 10.50 mg/dl (0-0.29) Total Protein 8.2 gm/dl (6.4-8.2) Albumin 3.1 gm/dl (3.4-5.0) Globulin 5.1 gm/dl (2.5-4.0) Albumin/Globulin Ratio 0.6 (0.9-2) Bedside Glucose 119 mg/dl (70-90) 150 mg/dl (70-90) Assessment & Plan Patient started on vancomycin and cefepime for possible lumbar wound infection. S/p revision decompression fusion ~3 weeks ago. Previously on ciprofloxacin outpatient. Vancomycin: * 1750 mg (~21 mg/kg) iv x 1 given this evening * Will start 1250 mg (~15 mg/kg) iv q 24 hrs to achieve an estimated trough ~15- 20 mcg/ml * Estimated kinetics: t1/2~24 hrs, ke~0.03 hr-1, CrCl ~40 - nurse unable to get a bedscale weight, used previous weight from another admission to assist with dosing * Dosing more aggressive due to severity of infection - will follow up tomorrow and order a trough as necessary, patient may be candidate for longer interval dosing Cefepime: * 2 gm iv q 12 hrs (appropriate for CrCl 30-60; targeting 2gm q8h dosing) Pharmacy will continue to follow and will adjust dose/frequency as necessary. Thank you
[2017-10-24] MEDS: ATORVASTATIN 10 MG TAB PO SCH (21:57)
[2017-10-24] MEDS: DOCUSATE SODIUM 100 MG CAP PO SCH (21:57)
[2017-10-24] MEDS: INSULIN GLARGINE SOLOSTAR 100 UNITS/ML 3 ML PEN SC SCH (22:02)
[2017-10-24] MEDS: LACTATED RINGER'S 1000ML 1,000 ML IV SCH (23:09)
[2017-10-24 23:19] VITALS: BP 164/74; PULSE 73; TEMP 36.5; O2SAT 99
[2017-10-24 23:30] VITALS: O2SAT 99
[2017-10-25] VITALS (15 sets, daily range): BP systolic 112–182; BP diastolic 63–85; PULSE 68–85; TEMP 36.4–36.9; O2SAT 92–98; Ht 152.4 cm; Wt 86.3 kg
[2017-10-25] MEDS: OXYCODONE/ACETAMINOPHEN 5-325 TAB PO PRN ×2 (04:38→08:34)
[2017-10-25] MEDS: LEVOTHYROXINE 100 MCG TAB PO SCH (06:02)
[2017-10-25 07:10] LABS: BASO % 0.2 %; BASO ABS # 0.02 K/uL (0-0.2); EOS % 1.8 %; HEMATOCRIT 29.8 % (37-47); IG# 0.03 K/uL (0.00-0.02); LYMPH % 14.6 %; LYMPH ABS # 1.62 K/uL (1.2-3.4); MEAN CELL VOLUME 78.2 fL (80-100); MEAN CORPUSCULAR HEMOGLOBIN 26.2 pg (25-34); MEAN CORPUSCULAR HGB CONC 33.6 g/dl (32-36); MEAN PLATELET VOLUME 9.2 fL (7.4-10.4); MONO % 8.2 %; MONO ABS # 0.91 K/uL (0.11-0.59); NEUT % 74.9 %; NEUT ABS # 8.35 K/uL (1.4-6.5); PLATELET COUNT 497 K/uL (130-400); WHITE BLOOD COUNT 11.13 K/uL (4.8-10.8)
[2017-10-25 07:41] LABS: CALCIUM 8.8 mg/dl (8.5-10.1); CREATININE 0.92 mg/dl (0.60-1.20); POTASSIUM 4.6 mmol/L (3.5-5.1)
[2017-10-25] MEDS: CEFEPIME IV 2,000 MG in SYRINGE 7.5 ML IV SCH ×2 (07:50→21:24)
[2017-10-25] MEDS ORDERED: AMLODIPINE BESYLATE 5 MG TAB PO SCH (09:00)
[2017-10-25] MEDS: INSULIN GLARGINE SOLOSTAR 100 UNITS/ML 3 ML PEN SC SCH (09:00)
[2017-10-25] MEDS: INSULIN ASPART 100 UNITS/ML 3 ML PEN SC SCH ×3 (09:18→19:06)
[2017-10-25] MEDS: CALCIUM 600MG + VIT D 400 IU TAB PO SCH (09:23)
[2017-10-25] MEDS: DOCUSATE SODIUM 100 MG CAP PO SCH ×2 (09:24→21:28)
[2017-10-25] MEDS: CHOLECALCIFEROL 1000 INTER.UNIT TAB PO SCH (09:24)
--- NOTE | 2017-10-25 09:27 | Progress Note ---
Internal Med Progress Note Date of Service: Oct 25, 2017. Provider Documentation: SUBJECTIVE: Seen and examined at bedside Complains of lower back pain Planned for possible I&D today as per RN Denies chest pain, SOB, dizziness No other complaints OBJECTIVE: Vital Signs-as noted below General Appearance: WD/WN, no apparent distress Head: normocephalic, atraumatic Eyes: normal inspection, PERRL, EOMI, sclerae normal ENT: normal ENT inspection, hearing grossly normal Neck: supple, trachea midline Respiratory/Chest: chest non-tender, lungs clear, normal breath sounds, no respiratory distress, no accessory muscle use Cardiovascular: regular rate, rhythm, no murmur, + pertinent finding (1+ bilateral lower extremity edema) Abdomen/GI: normal bowel sounds, non tender, soft Back: + paravertebral tenderness (Lower back surgical site erythematous, tender ), + pertinent finding Extremities/Musculoskelatal: normal inspection, + pedal edema 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 ASSESSMENT & PLAN: Lumbar Wound Infection H/O Lumbar Stenosis S/P revision decompression fusion of L3-L5, [address] Marin[address] during prior admission Failed outpatient antibiotic therapy ---MRI Lumbar Spine suggestive of postoperative seroma. ? abscess; abnormal signal intensity and enhancement at the L4-5 endplates as well as mild paravertebral edema, Likely postoperative change but discitis/osteomyelitis would also have a similar appearance. Continue IV vancomycin and Cefepime Day # 2 Blood cultures pending Possible I&D today Pain control Activity, Surgical management per Orthopedics PT/OT DM II: Last A1C:7.1 on 10/01/17 Will hold oral diabetic meds ISS, basal Insulin Monitor BGs CKD stage III Cr at baseline Monitor renal function avoid nephrotoxic agents as able Hypomagnesemia: Replace magnesium as needed Hypothyroidism Continue Levothyroxine Dyslipidemia Continue Lipitor HTN continue amlodipine DVT Px: SCDs per Primary Team Disposition: Per Ortho Vital Signs: Date Time Temp Pulse Resp B/P (MAP) Pulse Ox O2 Delivery O2 Flow Rate FiO2 10/25/17 07:53 36.5 71 18 150/74 (99) 98 Room Air 10/25/17 07:40 Room Air 10/25/17 00:30 84 16 148/75 (99) 10/24/17 23:30 99 Room Air 10/24/17 23:19 36.5 73 16 164/74 (104) 99 Room Air 10/24/17 20:00 Room Air 10/24/17 20:00 36.4 66 18 153/67 (95) 99 Room Air 10/24/17 18:00 99 Room Air 10/24/17 14:10 36.9 72 18 160/76 (104) 99 Room Air Lab Results: Results Past 24 Hours Test 10/24/17 14:38 10/24/17 17:23 10/24/17 19:59 10/25/17 06:46 Range/Units White Blood Count 11.91 11.13 4.8-10.8 K/uL Red Blood Count 4.06 3.81 4.2-5.4 M/uL Hemoglobin 10.5 10.0 12.0-16.0 g/dL Hematocrit 32.1 29.8 37-47 % Mean Corpuscular Volume 79.1 78.2 80-100 fL Mean Corpuscular Hemoglobin 25.9 26.2 25-34 pg Mean Corpuscular Hemoglobin Concent 32.7 33.6 32-36 g/dl Platelet Count 592 497 130-400 K/uL Mean Platelet Volume 9.3 9.2 7.4-10.4 fL Neutrophils (%) (Auto) 65.4 74.9 % Lymphocytes (%) (Auto) 22.4 14.6 % Monocytes (%) (Auto) 8.5 8.2 % Eosinophils (%) (Auto) 3.1 1.8 % Basophils (%) (Auto) 0.3 0.2 % Neutrophils # (Auto) 7.79 8.35 1.4-6.5 K/uL Lymphocytes # (Auto) 2.67 1.62 1.2-3.4 K/uL Monocytes # (Auto) 1.01 0.91 0.11-0.59 K/uL Eosinophils # (Auto) 0.37 0.20 0-0.5 K/uL Basophils # (Auto) 0.03 0.02 0-0.2 K/uL RDW Standard Deviation 44.7 43.0 36.4-46.3 fL RDW Coefficient of Variation 15.3 15.0 11.5-14.5 % Immature Granulocyte % (Auto) 0.3 0.3 % Immature Granulocyte # (Auto) 0.04 0.03 0.00-0.02 K/uL Erythrocyte Sedimentation Rate > 140 0-21 mm/hr Sodium Level 139 137 136-145 mmol/L Potassium Level 4.1 4.6 3.5-5.1 mmol/L Chloride Level 108 106 98-107 mmol/L Carbon Dioxide Level 23 22 21-32 mmol/L Anion Gap 8.0 9.0 3-11 mmol/L Blood Urea Nitrogen 28 20 7-18 mg/dl Creatinine 1.06 0.92 0.60-1.20 mg/dl Estimated GFR () 55.4 65.8 Estimated GFR (Non- 47.8 56.8 BUN/Creatinine Ratio 26.3 21.5 10-20 Random Glucose 142 164 70-99 mg/dl Calcium Level 9.3 8.8 8.5-10.1 mg/dl Total Bilirubin 0.2 0.2-1 mg/dl Aspartate Amino Transf (AST/SGOT) 12 15-37 U/L Alanine Aminotransferase (ALT/SGPT) 13 12-78 U/L Alkaline Phosphatase 132 45-117 U/L C-Reactive Protein 10.50 0-0.29 mg/dl Total Protein 8.2 6.4-8.2 gm/dl Albumin 3.1 3.4-5.0 gm/dl Globulin 5.1 2.5-4.0 gm/dl Albumin/Globulin Ratio 0.6 0.9-2 Bedside Glucose 119 150 70-90 mg/dl Est Creatinine Clear Calc Drug Dose 42.4 ml/min Magnesium Level 1.7 1.8-2.4 mg/dl Microbiology Results 10/24/17 Blood Culture, Received Pending 10/24/17 Blood Culture, Received Pending
[2017-10-25] MEDS ORDERED: MAGNESIUM SULFATE 1GM / D5W 100 ML IV ONE (09:30)
[2017-10-25] MEDS: LACTATED RINGER'S 1000ML 1,000 ML IV SCH (12:26)
[2017-10-25] MEDS ORDERED: FENTANYL CITRATE INJ 50 MCG/1 ML 2 ML VIAL ONE (12:36)
--- NOTE | 2017-10-25 13:12 | History and Physical ---
History & Physical Date Oct 25, 2017. Chief Complaint Back and left leg pain History of Present Illness The patient is a 87 year old female with complaints of back and left leg pain. Unfortunately since surgery she has had progressive back pain over the past week with sciatica and left lower extremity. She has had some concerns regarding superficial closure of her skin and was started on Keflex 5 days ago. She was admitted with worsening pain underwent MRI and lab studies indicative of possible deep infection. Past Medical/Surgical History Medical Problems: (1) CKD (chronic kidney disease), stage III (2) DM type 2 (diabetes mellitus, type 2) (3) Dyslipidemia (4) HTN (hypertension) (5) Hypothyroidism (6) Lumbar stenosis with neurogenic claudication (7) lumbat wound infection Surgical Problems: (1) History of lumbar surgery (2) Hx of hernia repair (3) Hx of hysterectomy (4) S/P TKR (total knee replacement) Additional History Hepatic Disease: No Endocrine Disorder: No Kidney Disease: No Hypertension: Yes Heart Disease: No Bleeding Tendencies: No Infectious Diseases: No Other: Diabetes Allergies Coded Allergies: Penicillins (Verified Allergy, Unknown, HIVES, 09/30/17) Codeine (Verified Adverse Reaction, Intermediate, "put me out for 6 hours ", 09/30/17) Hydromorphone (Verified Adverse Reaction, Intermediate, "put me out for 6 hours", 09/30/17) Propoxyphene (Verified Adverse Reaction, Intermediate, "puts me out for 6 hours", 09/30/17) Morphine (Verified Adverse Reaction, Unknown, MORPHINE,CODEINE AND RELATED -NAUSEA VOMITING FLUSHING, 09/30/17) HYDROCODONE,OXYCODONE, HYDROMORPHONE-NAUSEA AND VOMITING Home Medications Scheduled Amlodipine (Norvasc), 2.5 MG PO NOON Atorvastatin (Lipitor), 10 MG PO QPM Calcium/Vitamin D (Os-Esdras 500 Plus D), 1 TAB PO NOON Cholecalciferol (Vitamin D3), 1 TAB PO NOON Levothyroxine Sodium (Synthroid), 100 MCG PO DAILYBB Metformin Hcl (Glucophage Ext Rel), 1,000 MG PO BID Scheduled PRN Acetaminophen (Tylenol), 1,000 MG PO Q8 PRN for Pain Oxycodone HCl (Oxycodone HCl), 5-10 MG PO Q4H PRN for Moderate - severe pain Physical Examination Skin: warm/dry, no rash Eyes: normal inspection, EOMI, sclerae normal ENT: normal ENT inspection, pharynx normal Head: normocephalic, atraumatic Neck: supple, no adenopathy, trachea midline Respiratory/Chest: lungs clear, normal breath sounds, no respiratory distress Cardiovascular: regular rate, rhythm, no edema, no murmur Abdomen / GI: normal bowel sounds, non tender Back: normal inspection Extremities: normal inspection, normal range of motion Neurologic/Psych: no motor/sensory deficits, alert, normal reflexes, oriented x 3 Diagnosis Epidural fluid collection rule out abscess Plan of Treatment Plan in light of her MRI findings in laboratory workup we are going to recommend urgent I&D lumbar spine with possible placement of stimulant beads at L4-5.
[2017-10-25] MEDS ORDERED: ONDANSETRON INJ 2 MG/ML 2 ML VIAL IV PRN ×2 (13:15→14:30)
[2017-10-25] MEDS ORDERED: EpHEDrine SULFATE INJ 50 MG/ML AMP IV PRN (13:15)
[2017-10-25] MEDS ORDERED: ATROPINE SULFATE 0.1 MG/ML 5ML SYR IV PRN (13:15)
[2017-10-25] MEDS ORDERED: BUPIVACAINE/EPINEPHRINE 0.5% MPF 1:200,000 30 ML VIAL ONE (13:24)
[2017-10-25] MEDS ORDERED: BACITRACIN 50000 UNIT VIAL ONE (13:24)
[2017-10-25] MEDS ORDERED: VANCOMYCIN HCL 1000MG/20ML VIAL ONE ×2 (13:25→14:13)
[2017-10-25] MEDS ORDERED: GENTAMICIN SULFATE 40 MG/ML 2 ML VIAL ONE ×2 (13:25→14:13)
[2017-10-25] MEDS ORDERED: PROPOFOL IV EMULSION 10 MG/ML 20 ML VIAL ONE (13:29)
[2017-10-25] MEDS ORDERED: LIDOCAINE HCL 2% 2 ML VIAL (20MG/ML) ONE (13:29)
[2017-10-25] MEDS ORDERED: ROCURONIUM BROMIDE 10 MG/ML 5 ML VIAL ONE (13:29)
[2017-10-25] MEDS ORDERED: PHENYLEPHRINE 100MCG/ML 5ML SYR ONE (14:13)
[2017-10-25] MEDS ORDERED: DEXAMETHASONE SOD INJ 4 MG/ML VIAL ONE (14:13)
[2017-10-25] MEDS ORDERED: ONDANSETRON INJ 2 MG/ML 2 ML VIAL ONE (14:13)
[2017-10-25] MEDS ORDERED: GLYCOPYRROLATE INJ 0.2 MG/ML VIAL ONE (14:23)
[2017-10-25] MEDS ORDERED: NEOSTIGMINE METHYLSULFATE 1 MG/ML 10ML VIAL ONE (14:23)
[2017-10-25] MEDS ORDERED: SODIUM CHLORIDE 0.9% 1000ML 1,000 ML IV SCH (14:29)
--- NOTE | 2017-10-25 14:29 | [facility] Operative Report ---
Operative Report Operative Date Oct 25, 2017. Pre-Operative Diagnosis Epidural fluid collection rule out abscess Post-Operative Diagnosis Same Procedure(s) Performed 1. I&D of the lumbar spine #2 placement of stimulator and antibiotic beads made with [employer] Surgeon [facility] Manager Surgeon(s) SIVAKUMAR Gould Estimated Blood Loss 50 Findings Epidural fluid collection with evidence of purulence Anesthesia Type General Description of Procedure Patient was met with preoperatively case discussed all questions addressed. After informed consent obtained patient underwent general anesthesia intubated and placed in prone position injection table on top of the Tommy frame. All bony prominences well-padded eyes inspected to ensure no external pressure placed upon. This point the lumbar spine was prepped and draped in normal sterile fashion. Utilizing the previous incision site sharp dissection was performed onto the fascial layer. A small amount of fluid with evidence of purulence was noted. I sharply dissected through the fascia and significant amount of epidural fluid was evacuated. It appear to be purulent in nature. Cultures were obtained. As well as portions of the phlegmon sent to the lab. Incision was then copiously irrigated with antibiotic solution all loose decrease looking tissue was debrided. I then placed proximal 20 cc of stimulant beads impregnated with Vanco and gent. A 19 round LENIN drain inserted. The incision was then closed with 1 Vicryl fascia 2-0 Vicryl subcutaneous and 4 Monocryl for fast closure Steri-Strips sterile dressings placed. Patient will continue to PACU stable condition. Please note Elisabeth Mcconnell was present throughout the entire procedure involved in patient positioning complex portions of the surgery and final skin closure. I attest to the content of the Intraoperative Record and any orders documented therein. Any exceptions are noted below.
[2017-10-25] MEDS ORDERED: LORAZEPAM 1 MG TAB PO PRN (14:30)
[2017-10-25] MEDS ORDERED: MAGNESIUM HYDROXIDE SUSP 30 ML UDC PO PRN (14:30)
[2017-10-25] MEDS ORDERED: ACETAMINOPHEN 500 MG TAB PO PRN (14:30)
[2017-10-25] MEDS ORDERED: DO NOT ADMINISTER PNEUMOCOCCAL VACCINE PRN (14:30)
[2017-10-25] MEDS ORDERED: DO NOT ADMINISTER FLU VACCINE PRN (14:30)
[2017-10-25] MEDS ORDERED: ACETAMINOPHEN 325 MG TAB PO PRN (14:30)
[2017-10-25] MEDS ORDERED: LORAZEPAM INJ 1 MG in SYRINGE 0.5 ML IV PRN (14:30)
[2017-10-25] MEDS: FENTANYL CITRATE INJ 50 MCG/1 ML 2 ML VIAL IV PRN ×8 (14:54→15:55)
[2017-10-25] MEDS ORDERED: ACETAMINOPHEN 1000 MG/100 ML IV IV ONE ×2 (15:18→15:30)
[2017-10-25] MEDS ORDERED: FENTANYL CITRATE INJ 50 MCG/1 ML 2 ML VIAL IV PRN (15:30)
--- NOTE | 2017-10-25 15:59 | Anesthesiology Progress Note ---
Anesthesia Post Op Note Date & Time Oct 25, 2017 at 15:58 Vital Signs Pain Intensity: 7.0 Vital Signs Past 12 Hours Date Time Temp Pulse Resp B/P (MAP) Pulse Ox O2 Delivery O2 Flow Rate FiO2 10/25/17 15:40 69 16 170/61 93 Nasal Cannula 2 10/25/17 15:30 73 16 172/63 94 Nasal Cannula 2 10/25/17 15:20 73 16 166/67 96 Nasal Cannula 2 10/25/17 15:10 76 16 185/68 96 Nasal Cannula 2 10/25/17 15:00 79 16 194/83 100 Oxymask 10 10/25/17 14:50 37.3 79 16 193/72 100 Oxymask 10 10/25/17 07:53 36.5 71 18 150/74 (99) 98 Room Air 10/25/17 07:40 Room Air Notes Mental Status: alert / awake / arousable, participated in evaluation Pt Amnestic to Procedure: Yes Nausea / Vomiting: adequately controlled Pain: adequately controlled Airway Patency, RR, SpO2: stable & adequate BP & HR: stable & adequate Hydration State: stable & adequate Anesthetic Complications: no major complications apparent
[2017-10-25] MEDS ORDERED: ALBUT/IPRATROP 3MG/0.5MG NEB 3 ML VIAL INH STA (19:49)
--- NOTE | 2017-10-25 20:06 | DIAGNOSTIC IMAGING REPORT ---
CHEST ONE VIEW PORTABLE CLINICAL HISTORY: cough dyspnea COMPARISON STUDY: 10/24/2017 FINDINGS: The bones soft tissues and hemidiaphragms are normal. The cardiomediastinal silhouette is normal. The lungs are clear. The pulmonary vasculature is normal. IMPRESSION: Negative chest. The above report was generated using voice recognition software. It may contain grammatical, syntax or spelling errors. Electronically signed by: Narendra Dalal M.D. 10/25/2017 8:05 PM Dictated Date/Time: 10/25/2017 8:04 PM
[2017-10-25] MEDS ORDERED: AMLODIPINE BESYLATE 5 MG TAB PO ONE (20:08)
[2017-10-25] MEDS ORDERED: SODIUM CHLORIDE 0.9% 1000ML 1,000 ML IV ONE (21:00)
[2017-10-25] MEDS ORDERED: INSULIN GLARGINE SOLOSTAR 100 UNITS/ML 3 ML PEN SC ONE (21:15)
[2017-10-25] MEDS: VANCOMYCIN IV 1,250 MG in SODIUM CHLORIDE 0.9% 250ML 250 ML IV SCH (21:26)
[2017-10-25] MEDS: ATORVASTATIN 10 MG TAB PO SCH (21:27)
[2017-10-26] VITALS (7 sets, daily range): BP systolic 110–133; BP diastolic 61–72; PULSE 62–74; TEMP 36.5–36.7; O2SAT 93–99
[2017-10-26] MEDS: LEVOTHYROXINE 100 MCG TAB PO SCH (06:13)
[2017-10-26] MEDS: CEFEPIME IV 2,000 MG in SYRINGE 7.5 ML IV SCH ×2 (07:37→21:04)
--- NOTE | 2017-10-26 07:48 | Clinical Documentation Query ---
NATALI Alcaraz : CLINICAL DOCUMENTATION QUERIES QUERY 1 OF 2 Linda is an 87 year old female who on 09/30/17 underwent lumbar revision and decompression, posterior instrumented and interbody fusion. Returns with progressive back and leg pain. She underwent urgent I&D of lumbar spine with placement of antibiotic impregnated beads. Findings included an epidural fluid collection with evidence of purulence. Blood and operative cultures obtained. She is being treated with IV Vancomycin. 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 Thank you. In your clinical opinion is this patient being managed for: ( ) Post-operative wound infection, possible epidural abscess, a complication of care ( x ) Not Agree ( ) Other explanation of clinical findings (No explanation is considered a No Response) ( ) Unable to determine ( ) Need to Discuss (Phone CDS or qliq) (No discussion is considered a No Response) The medical record reflects the following clinical findings, treatment, and risk factors. Clinical Indicators: As above Treatment: As above Risk Factors: Surgical/operative wound. QUERY 2 OF 2 H&H 09/15/17 was 13.2 g/dl and 39%. This a.m. (10/25), values are 10.0 g/dl and 29.8%. Perioperative losses for 09/30-10/03 visit were 920 ml's. Losses this visit total an additional 245 ml's to date. She is being monitored with serial hematology. As appropriate, consider documentation as suggested below. Thank you. In your clinical opinion is this patient being managed for: ( x ) Acute blood loss anemia ( ) Not Agree ( ) Other explanation of clinical findings (No explanation is considered a No Response) ( ) Unable to determine ( ) Need to Discuss (Phone CDS or qliq) (No discussion is considered a No Response) The medical record reflects the following clinical findings, treatment, and risk factors. Clinical Indicators: As above Treatment: Serial hematology, I/O. Risk Factors: Acute perioperative blood losses, multiple procedures Please clarify and document your clinical opinion in the progress notes and discharge summary. Terms such as "probable", "suspected", "likely", "questionable", "possible", or "still to be ruled out" are acceptable. IF IN AGREEMENT, YOU MUST DOCUMENT ABOVE DIAGNOSTIC STATEMENT IN DAILY PROGRESS NOTES AND DISCHARGE SUMMARY. This document is not part of the patient's record. Thank You, Salty Ivan RN [phone]
[2017-10-26 07:54] LABS: BASO % 0.1 %; BASO ABS # 0.01 K/uL (0-0.2); HEMATOCRIT 29.7 % (37-47); IG# 0.05 K/uL (0.00-0.02); LYMPH % 9.9 %; LYMPH ABS # 1.57 K/uL (1.2-3.4); MEAN CELL VOLUME 78.4 fL (80-100); MEAN CORPUSCULAR HEMOGLOBIN 26.4 pg (25-34); MEAN CORPUSCULAR HGB CONC 33.7 g/dl (32-36); MEAN PLATELET VOLUME 9.5 fL (7.4-10.4); MONO % 4.9 %; MONO ABS # 0.78 K/uL (0.11-0.59); NEUT % 84.8 %; PLATELET COUNT 574 K/uL (130-400); RED CELL DISTRIBUTION WIDTH CV 14.9 % (11.5-14.5); RED CELL DISTRIBUTION WIDTH SD 42.9 fL (36.4-46.3); WHITE BLOOD COUNT 15.81 K/uL (4.8-10.8)
[2017-10-26 08:19] LABS: CALCIUM 9.7 mg/dl (8.5-10.1); CREATININE 1.12 mg/dl (0.60-1.20); POTASSIUM 4.8 mmol/L (3.5-5.1)
[2017-10-26] MEDS: CALCIUM 600MG + VIT D 400 IU TAB PO SCH (08:49)
[2017-10-26] MEDS: DOCUSATE SODIUM 100 MG CAP PO SCH ×2 (08:51→21:04)
[2017-10-26] MEDS: CHOLECALCIFEROL 1000 INTER.UNIT TAB PO SCH (08:53)
[2017-10-26] MEDS: AMLODIPINE BESYLATE 5 MG TAB PO SCH (08:58)
[2017-10-26] MEDS ORDERED: INSULIN GLARGINE SOLOSTAR 100 UNITS/ML 3 ML PEN SC SCH (09:00)
[2017-10-26] MEDS: INSULIN ASPART 100 UNITS/ML 3 ML PEN SC SCH ×4 (09:17→21:12)
--- NOTE | 2017-10-26 09:22 | Anesthesiology Progress Note ---
Anesthesia Post Op Note Date & Time Oct 26, 2017 at 09:21 Vital Signs Pain Intensity: 3.0 Vital Signs Past 12 Hours Date Time Temp Pulse Resp B/P (MAP) Pulse Ox O2 Delivery O2 Flow Rate FiO2 10/26/17 08:13 95 Room Air 10/26/17 07:52 Room Air 10/26/17 07:44 36.5 68 20 122/64 (83) 95 Room Air 10/26/17 03:46 36.5 65 16 133/72 (92) 99 Room Air 10/25/17 23:50 97 Room Air 4.0 10/25/17 23:20 36.7 73 16 112/66 (81) 97 Room Air 10/25/17 21:25 85 123/63 (83) Notes Mental Status: alert / awake / arousable, participated in evaluation Pt Amnestic to Procedure: Yes Nausea / Vomiting: adequately controlled Pain: adequately controlled Airway Patency, RR, SpO2: stable & adequate BP & HR: stable & adequate Hydration State: stable & adequate Anesthetic Complications: no major complications apparent
--- NOTE | 2017-10-26 11:56 | Hospitalist Progress Note ---
Hospitalist Progress Note Date of Service Oct 26, 2017. (Alva Haque PA-C) Subjective Pt evaluation today including: conversation w/ patient, physical exam, chart review, lab review Pt seen in room, sitting up in chair. Pt reports pain well controlled at this time and reports has ambulated in hallway this morning. Denies any extremity pain or paresthesias. Has Braga catheter in place. Reports +flatus. Ate breakfast today without difficulty. Denies nausea or vomiting. Denies chills, GLORIA , dizziness, CP, SOB, choking, abdominal pain. (Alva Haque PA-C) Pt evaluation today including: conversation w/ patient, physical exam, review of studies (Jean Paul Barrett M.D.) Objective Vital Signs Date Time Temp Pulse Resp B/P (MAP) Pulse Ox O2 Delivery O2 Flow Rate FiO2 10/26/17 10:15 68 96 10/26/17 08:13 95 Room Air 10/26/17 07:52 Room Air 10/26/17 07:44 36.5 68 20 122/64 (83) 95 Room Air 10/26/17 03:46 36.5 65 16 133/72 (92) 99 Room Air 10/25/17 23:50 97 Room Air 4.0 10/25/17 23:20 36.7 73 16 112/66 (81) 97 Room Air 10/25/17 21:25 85 123/63 (83) 10/25/17 20:40 71 16 96 Room Air 10/25/17 19:45 36.7 85 16 143/74 (97) 95 Room Air 10/25/17 19:22 85 161/74 (103) 10/25/17 19:10 85 18 182/78 (112) 95 Room Air 10/25/17 18:40 36.9 82 18 181/85 (117) 92 Room Air 10/25/17 17:43 93 Room Air 10/25/17 17:41 36.6 68 18 162/77 (105) 97 Nasal Cannula 4.0 10/25/17 17:11 36.6 68 18 156/70 (98) 96 Nasal Cannula 4.0 10/25/17 16:45 163/75 (104) 10/25/17 16:40 Nasal Cannula 10/25/17 16:40 36.4 74 18 170/72 (104) 98 Nasal Cannula 4.0 10/25/17 16:40 Nasal Cannula 4.0 10/25/17 16:20 65 16 138/56 95 Nasal Cannula 2 10/25/17 16:10 64 16 140/56 93 Nasal Cannula 2 10/25/17 16:00 64 16 146/52 93 Nasal Cannula 2 10/25/17 15:50 72 16 155/63 95 Nasal Cannula 2 10/25/17 15:40 69 16 170/61 93 Nasal Cannula 2 10/25/17 15:30 73 16 172/63 94 Nasal Cannula 2 10/25/17 15:20 73 16 166/67 96 Nasal Cannula 2 10/25/17 15:10 76 16 185/68 96 Nasal Cannula 2 10/25/17 15:00 79 16 194/83 100 Oxymask 10 10/25/17 14:50 37.3 79 16 193/72 100 Oxymask 10 (Alva Haque ., PA-C) Physical Exam General Appearance: no apparent distress, + obese Eyes: normal inspection, sclerae normal ENT: hearing grossly normal, pharynx normal, + pertinent finding (mucous membranes moist) Neck: supple, trachea midline Respiratory/Chest: lungs clear, normal breath sounds, no respiratory distress Cardiovascular: regular rate, rhythm Abdomen: normal bowel sounds, non tender, soft Extremities: non-tender, normal inspection, no pedal edema, normal capillary refill, + pertinent finding (ROM extremities intact) Neurologic/Psychiatric: alert, normal mood/affect, oriented x 3 Skin: warm/dry, + pertinent finding (small amount bloody drainage noted in drain) (Alva Haque ., PA-C) Laboratory Results Last 24 Hours Test 10/25/17 11:52 10/25/17 14:57 10/25/17 17:10 10/25/17 20:25 Bedside Glucose 142 mg/dl 149 mg/dl 209 mg/dl 300 mg/dl Test 10/26/17 00:23 10/26/17 07:24 10/26/17 08:20 Bedside Glucose 291 mg/dl 178 mg/dl White Blood Count 15.81 K/uL Red Blood Count 3.79 M/uL Hemoglobin 10.0 g/dL Hematocrit 29.7 % Mean Corpuscular Volume 78.4 fL Mean Corpuscular Hemoglobin 26.4 pg Mean Corpuscular Hemoglobin Concent 33.7 g/dl Platelet Count 574 K/uL Mean Platelet Volume 9.5 fL Neutrophils (%) (Auto) 84.8 % Lymphocytes (%) (Auto) 9.9 % Monocytes (%) (Auto) 4.9 % Eosinophils (%) (Auto) 0.0 % Basophils (%) (Auto) 0.1 % Neutrophils # (Auto) 13.40 K/uL Lymphocytes # (Auto) 1.57 K/uL Monocytes # (Auto) 0.78 K/uL Eosinophils # (Auto) 0.00 K/uL Basophils # (Auto) 0.01 K/uL RDW Standard Deviation 42.9 fL RDW Coefficient of Variation 14.9 % Immature Granulocyte % (Auto) 0.3 % Immature Granulocyte # (Auto) 0.05 K/uL Sodium Level 135 mmol/L Potassium Level 4.8 mmol/L Chloride Level 104 mmol/L Carbon Dioxide Level 24 mmol/L Anion Gap 7.0 mmol/L Blood Urea Nitrogen 24 mg/dl Creatinine 1.12 mg/dl Est Creatinine Clear Calc Drug Dose 35.8 ml/min Estimated GFR () 51.9 Estimated GFR (Non- 44.8 BUN/Creatinine Ratio 21.7 Random Glucose 188 mg/dl Calcium Level 9.7 mg/dl Magnesium Level 2.0 mg/dl (Alva Haque, PA-C) Assessment and Plan POST OP DAY #1 S/P I&D LUMBAR SPINE AND PLACEMENT STIMULATOR & BEADS Stimulator beads with vancomycin and gentamicin -Today WBC: 15, afebrile -continue vancomycin and cefepime pending epidural fluid cultures. Negative blood cultures -pain management per ortho -wound management per ortho -PT/OT as appropriate -DVT prophylaxis per ortho -incentive spirometry -monitor H&H for acute blood loss anemia, Hgb: 10 and stable -ID consult DM II HA1C: 7.1 on 09/2017 -hold oral meds -basal bolus sliding scale per protocol, adjusted as pt had some elevated BSG yesterday evening and this morning -monitor BSG CKD III Cr: 1.1, (~ baseline) -Monitor renal functions -Avoid nephrotoxic agents as able HYPOTHYROIDISM -continue levothyroxine HTN BP's stable -continue amlodipine DYSLIPIDEMIA -Continue lipitor DVT Prophylaxis -per ortho Full Code Follows with Dr Bautista for routine care Pt was seen with Dr Barrett. See addendum (Alva Haque, ROD) Pt was seen with Dr Barrett. See addendum I have seen and examined the patient and agree with the assessment and plan as above with SIVAKUMAR Johnson and would like to comment that patient is an 87-year- old female with history of diabetes mellitus, stage 3 chronic kidney disease, hypertension, hyperlipidemia, who is status post lumbar revision surgery with fusion approximately 3 weeks ago and subsequently there was concern of epidural abscess for which patient is s/p induration and drainage with placement of antibiotic beads. Patient is currently on IV vancomycin. Patient's cultures preliminary of coag negative staph and gram positive cocci. Infectious disease consult is following the patient and suggested the placement of PICC line. Patient at this time is declining PICC line placement until cultures return with full results. She also expressed concerns to case management about cost of outpatient IV antibiotics DM II HA1C: 7.1 on 09/2017 -glucose better controlled today, continue insulin and fingerstick glucose as per protocol CKD III Cr: 1.1, (~ baseline) -Monitor renal functions while on vancomycin HYPOTHYROIDISM -continue levothyroxine HTN -continue amlodipine DYSLIPIDEMIA -Continue lipitor On exam; no apparent distress, sitting in chair Eyes: normal inspection, sclerae normal ENT: hearing grossly normal, pharynx donovan Neck: supple, trachea midline Respiratory/Chest: lungs clear, normal breath sounds, no respiratory distress Cardiovascular: regular rate, rhythm Abdomen: normal bowel sounds, non tender, soft Extremities: non-tender, normal inspection, no pedal edema Back: LENIN drain Neurologic/Psychiatric: alert, normal mood/affect, oriented x 3 (Jean Paul Barrett M.D.)
--- NOTE | 2017-10-26 13:09 | Progress Note ---
Progress Note Date of Service Oct 26, 2017. Progress Note Patient's back pain is markedly improved. Left leg symptoms improved. Vital signs are stable. LENIN drain decreasing appropriately. Cultures pending. On exam she is in the chair at the bedside having just ambulated in the halls. She has good strength testing appears very comfortable. Assessment status post I&D lumbar spine. Plan at this time we will await cultures. Will consult infectious disease. Will most likely move forward with a PICC line tomorrow.
--- NOTE | 2017-10-26 13:57 | Medical Consult ---
Consultation Date of Consultation: Oct 26, 2017. Attending Physician: Wiley Marin D.O. Reason for Consultation: Epidural abscess History of Present Illness 87-year-old female with history of diabetes mellitus, stage 3 chronic kidney disease, hypertension, hyperlipidemia, who is status post lumbar revision surgery with fusion approximately 3 weeks ago. She was seen by Orthopedic surgery who started patient on cephalexin for possible wound infection. She subsequently developed progressively worsening pain radiating down her leg, until she was unable to walk and pain was rated 10/10 in intensity. She has undergone MRI scan with finding of probable epidural abscess, and patient has now undergone incision and drainage of a lumbar collection consistent with abscess. She currently is on IV vancomycin. Cultures are pending, Gram stain negative. Back pain is improved significantly since surgery. No report of significant fevers. Has had some chills. Past Medical/Surgical History Medical Problems: (1) CKD (chronic kidney disease), stage III (2) DM type 2 (diabetes mellitus, type 2) (3) Dyslipidemia (4) HTN (hypertension) (5) Hypothyroidism (6) Infection of lumbar spine (7) Lumbar stenosis with neurogenic claudication (8) lumbat wound infection Surgical Problems: (1) History of lumbar surgery (2) Hx of hernia repair (3) Hx of hysterectomy (4) S/P TKR (total knee replacement) Family History Hypertension Social History Smoking Status: Never Smoker Alcohol Use: none Drug Use: none Marital Status: Housing Status: lives with family Occupation Status: retired Allergies Coded Allergies: Penicillins (Verified Allergy, Unknown, HIVES, 09/30/17) Codeine (Verified Adverse Reaction, Intermediate, "put me out for 6 hours ", 09/30/17) Hydromorphone (Verified Adverse Reaction, Intermediate, "put me out for 6 hours", 09/30/17) Propoxyphene (Verified Adverse Reaction, Intermediate, "puts me out for 6 hours", 09/30/17) Morphine (Verified Adverse Reaction, Unknown, MORPHINE,CODEINE AND RELATED -NAUSEA VOMITING FLUSHING, 09/30/17) HYDROCODONE,OXYCODONE, HYDROMORPHONE-NAUSEA AND VOMITING Current Inpatient Medications Current Inpatient Medications Medications (Trade) Dose Ordered Sig/German Route Start Time Stop Time Status Last Admin Dose Admin Lactated Ringer's 1,000 ml @ 75 mls/hr [id number] IV 10/24/17 14:01 11/23/17 14:00 Future Hold 10/25/17 12:26 75 MLS/HR Atorvastatin Calcium (Lipitor Tab) 10 mg QPM PO 10/24/17 21:00 11/23/17 20:59 10/25/17 21:27 10 MG Calcium/Vitamin D (Caltrate Plus Tab) 1 tab DAILY PO 10/25/17 09:00 11/24/17 08:59 10/26/17 08:49 1 TAB Cholecalciferol (Vitamin D Tab) 1,000 inter.unit DAILY PO 10/25/17 09:00 11/24/17 08:59 10/26/17 08:53 1,000 INTER.UNIT Levothyroxine Sodium (Synthroid Tab) 100 mcg DAILYBB PO 10/25/17 06:00 11/24/17 05:59 10/26/17 06:13 100 MCG Miscellaneous (Iv Fluids Completed) 1 ea PRN PRN N/A 10/24/17 15:00 10/24/18 14:59 Glucose (Glucose 40% Gel) 15-30 GRAMS 15 GRAMS... UD PRN PO 10/24/17 16:15 11/23/17 16:14 Glucose (Glucose Chew Tab) 4-8 Tablets 4 Tabl... UD PRN PO 10/24/17 16:15 11/23/17 16:14 Dextrose (Dextrose 50% 50ML Syringe) 25-50ML 25ML FOR ... UD PRN IV 10/24/17 16:15 11/23/17 16:14 Glucagon (Glucagon Inj) 1 mg UD PRN SQ 10/24/17 16:15 11/23/17 16:14 Carbohydrates (Carbohydrates For Hypoglycemia) 15-30 GRAMS 15 grams if BSG 54-69... UD PRN PO 10/24/17 16:15 11/23/17 16:14 Cefepime HCl (Consult) 1 ea UD PRN N/A 10/24/17 16:30 11/23/17 16:29 Vancomycin HCl (Consult) 1 ea UD PRN N/A 10/24/17 16:30 11/23/17 16:29 Gadobutrol (Gadavist) 8 mmol UD PRN IV 10/24/17 17:00 10/28/17 16:59 Cefepime HCl 2000 mg/Syringe 20 ml @ 5 mls/min Q12H IV 10/25/17 08:00 12/06/17 07:59 10/26/17 07:37 5 MLS/MIN Vancomycin HCl 1250 mg/Sodium Chloride 275 ml @ 125 mls/hr Q24H IV 10/25/17 20:00 12/05/17 19:59 10/25/17 21:26 125 MLS/HR Magnesium Hydroxide (Milk Of Magnesia Susp) 30 ml DAILY PRN PO 10/25/17 14:30 11/24/17 14:29 Docusate Sodium (coLACE CAP) 100 mg BID PO 10/25/17 21:00 11/24/17 20:59 10/26/17 08:51 100 MG Acetaminophen (Tylenol Tab) 650 mg Q6H PRN PO 10/25/17 14:30 11/24/17 14:29 Ondansetron HCl (Zofran Inj) 4 mg Q6 PRN IV 10/25/17 14:30 11/24/17 14:29 Lorazepam (Ativan Tab) 1 mg Q8H PRN PO 10/25/17 14:30 11/24/17 14:29 Lorazepam 1 mg/ Syringe 1 ml @ 1 mls/min Q8 PRN IV 10/25/17 14:30 11/24/17 14:29 Pneumococcal Polysaccharide Vaccine 1 ea PRN PRN N/A 10/25/17 14:30 11/24/17 14:29 Influenza Virus Vacc Triv Types A&B 1 ea PRN PRN N/A 10/25/17 14:30 11/24/17 14:29 Sodium Chloride 1,000 ml @ 80 mls/hr [id number] IV 10/25/17 14:29 10/26/17 14:28 Future Hold Acetaminophen/ Hydrocodone Bitart ([place] 5/325 Tab) 1 tab Q4H PRN PO 10/25/17 14:30 11/08/17 14:29 Polyethylene (Miralax Powder Packet) 17 gm DAILY PO 10/27/17 09:00 11/26/17 08:59 Bisacodyl (Dulcolax Tab) 5 mg DAILY PRN PO 10/27/17 06:00 11/26/17 05:59 Bisacodyl (Dulcolax Supp) 10 mg DAILY PRN RI 10/27/17 06:00 11/26/17 05:59 Acetaminophen (Tylenol Tab) 500 mg Q4H PRN PO 10/25/17 14:30 11/24/17 14:29 Amlodipine Besylate (Norvasc Tab) 5 mg DAILY PO 10/26/17 09:00 11/24/17 08:59 10/26/17 08:58 5 MG Insulin Aspart (novoLOG ASPART) SLIDING SCALE If C... ACHS SC 10/26/17 08:00 11/23/17 17:14 10/26/17 13:15 5 UNITS Insulin Glargine (Lantus Solostar Pen) 7 units Q12 SC 10/26/17 09:00 11/23/17 20:59 10/26/17 09:19 7 UNITS Review of Systems All systems were reviewed and are negative except as per HPI Physical Exam Date Time Temp Pulse Resp B/P (MAP) Pulse Ox O2 Delivery O2 Flow Rate FiO2 10/26/17 12:00 36.7 62 14 110/66 (81) 93 Room Air 10/26/17 10:15 68 96 10/26/17 08:13 95 Room Air 10/26/17 07:52 Room Air 10/26/17 07:44 36.5 68 20 122/64 (83) 95 Room Air 10/26/17 03:46 36.5 65 16 133/72 (92) 99 Room Air 10/25/17 23:50 97 Room Air 4.0 10/25/17 23:20 36.7 73 16 112/66 (81) 97 Room Air 10/25/17 21:25 85 123/63 (83) 10/25/17 20:40 71 16 96 Room Air 10/25/17 19:45 36.7 85 16 143/74 (97) 95 Room Air 10/25/17 19:22 85 161/74 (103) 10/25/17 19:10 85 18 182/78 (112) 95 Room Air 10/25/17 18:40 36.9 82 18 181/85 (117) 92 Room Air 10/25/17 17:43 93 Room Air 10/25/17 17:41 36.6 68 18 162/77 (105) 97 Nasal Cannula 4.0 10/25/17 17:11 36.6 68 18 156/70 (98) 96 Nasal Cannula 4.0 10/25/17 16:45 163/75 (104) 10/25/17 16:40 Nasal Cannula 10/25/17 16:40 36.4 74 18 170/72 (104) 98 Nasal Cannula 4.0 10/25/17 16:40 Nasal Cannula 4.0 10/25/17 16:20 65 16 138/56 95 Nasal Cannula 2 10/25/17 16:10 64 16 140/56 93 Nasal Cannula 2 10/25/17 16:00 64 16 146/52 93 Nasal Cannula 2 10/25/17 15:50 72 16 155/63 95 Nasal Cannula 2 10/25/17 15:40 69 16 170/61 93 Nasal Cannula 2 10/25/17 15:30 73 16 172/63 94 Nasal Cannula 2 10/25/17 15:20 73 16 166/67 96 Nasal Cannula 2 10/25/17 15:10 76 16 185/68 96 Nasal Cannula 2 10/25/17 15:00 79 16 194/83 100 Oxymask 10 10/25/17 14:50 37.3 79 16 193/72 100 Oxymask 10 General Appearance: WD/WN, no apparent distress Head: normocephalic, atraumatic Eyes: normal inspection, EOMI, sclerae normal ENT: normal ENT inspection, hearing grossly normal, pharynx normal Neck: supple, no adenopathy, thyroid normal, trachea midline Respiratory/Chest: chest non-tender, lungs clear, normal breath sounds, no respiratory distress Cardiovascular: regular rate, rhythm, no gallop, no murmur Abdomen/GI: normal bowel sounds, non tender, soft, no organomegaly Back: normal inspection, + pertinent finding (Tenderness over lower lumbar area ) Extremities/Musculoskelatal: no calf tenderness, normal capillary refill Neurologic/Psych: alert, normal mood/affect, oriented x 3 Skin: normal color, no rash, + pertinent finding (Surgical dressing intact lower back) Laboratory Results Date/Time Source Procedure Growth Status 10/25/17 14:18 Drainage-Deep Back Gram Stain - Final Resulted 10/25/17 14:18 Drainage-Deep Back Bacterial Culture Pending Resulted 10/25/17 14:18 Tissue Back Gram Stain - Final Resulted 10/25/17 14:18 Tissue Back Bacterial Culture Pending Resulted Last 24 Hours Test 10/25/17 14:57 10/25/17 17:10 10/25/17 20:25 10/26/17 00:23 Bedside Glucose 149 mg/dl 209 mg/dl 300 mg/dl 291 mg/dl Test 10/26/17 07:24 10/26/17 08:20 White Blood Count 15.81 K/uL Red Blood Count 3.79 M/uL Hemoglobin 10.0 g/dL Hematocrit 29.7 % Mean Corpuscular Volume 78.4 fL Mean Corpuscular Hemoglobin 26.4 pg Mean Corpuscular Hemoglobin Concent 33.7 g/dl Platelet Count 574 K/uL Mean Platelet Volume 9.5 fL Neutrophils (%) (Auto) 84.8 % Lymphocytes (%) (Auto) 9.9 % Monocytes (%) (Auto) 4.9 % Eosinophils (%) (Auto) 0.0 % Basophils (%) (Auto) 0.1 % Neutrophils # (Auto) 13.40 K/uL Lymphocytes # (Auto) 1.57 K/uL Monocytes # (Auto) 0.78 K/uL Eosinophils # (Auto) 0.00 K/uL Basophils # (Auto) 0.01 K/uL RDW Standard Deviation 42.9 fL RDW Coefficient of Variation 14.9 % Immature Granulocyte % (Auto) 0.3 % Immature Granulocyte # (Auto) 0.05 K/uL Sodium Level 135 mmol/L Potassium Level 4.8 mmol/L Chloride Level 104 mmol/L Carbon Dioxide Level 24 mmol/L Anion Gap 7.0 mmol/L Blood Urea Nitrogen 24 mg/dl Creatinine 1.12 mg/dl Est Creatinine Clear Calc Drug Dose 35.8 ml/min Estimated GFR () 51.9 Estimated GFR (Non- 44.8 BUN/Creatinine Ratio 21.7 Random Glucose 188 mg/dl Calcium Level 9.7 mg/dl Magnesium Level 2.0 mg/dl Bedside Glucose 178 mg/dl LUMBAR SPINE MRI WITH AND WITHOUT CONTRAST HISTORY: lumbar wound infection TECHNIQUE: Multiplanar multisequence MRI of the lumbar spine was performed both before and after the intravenous administration of contrast. COMPARISON: Lumbar spine 09/30/2017. FINDINGS: For the purpose of the report the L5-S1 disc space will be located on axial image 23 of 25. Alignment is intact. Levoscoliosis of the lumbar spine. No fractures within the lumbar spine. The L1-L2 and L2-L3 disc spaces are preserved. Posterior decompression fusion from L3 through L5 with pedicle screws and rods. The conus terminates at the L2-L3 disc space level. There is a left retroaortic renal vein. T2 hyperintense, T1 hypointense signal at the L4-5 endplates with mild surrounding paravertebral edema. These endplates demonstrate enhancement on the postcontrast sequences. There is a disc spacer at the L4-5 level which limits evaluation for disc abnormality. There is subcutaneous edema and a small amount of ill-defined fluid at the incision site from the L1-L5 levels. This ill-defined fluid canal to a deeper fluid collection at the laminectomy sites. This fluid collection surrounds the pedicle screws from the L3-L5 levels. This is best in the axial postcontrast sequences images 11 through 25. At the L5 level the fluid collection measures approximately 7.4 x 1.3 cm. Mild posterior abnormal enhancement at the L2-L3 level favors postoperative change. Posterior to the thecal sac at the laminectomy site at the L4-5 level there is a slightly T2 hyperintense and slightly T1 hyperintense area which demonstrates enhancement. This favors postoperative granulation tissue. This does not result significant mass effect along the thecal sac. This is best seen on axial image 19 of 25 and measures 1.6 x 0.9 cm. L1-L2: No significant central canal or neural foraminal narrowing. L2-L3: No significant central canal or neural foraminal narrowing. L3-L4: Small broad-based posterior disc bulge. No significant central canal narrowing due to the posterior decompression. There is moderate bilateral neural foraminal narrowing. L4-L5: Broad-based posterior disc bulge without significant central canal narrowing due to the posterior decompression. There is mild to moderate right and severe left neural foraminal narrowing. L5-S1: No central canal narrowing. There is mild right and mild to moderate left neural foraminal narrowing. IMPRESSION: 1. Posterior decompression and fusion from L3 through L5 with pedicle screws and rods. 2. There is a fluid collection surrounding the pedicle screws and at the laminectomy site as described above. This demonstrates peripheral enhancement. Given the recent postoperative change this could represent a postoperative seroma. However, an abscess could also have a similar appearance. This fluid collection connects to the ill-defined fluid within the subcutaneous location of the lumbar spine deep to the incision site. 3. There is abnormal signal intensity and enhancement at the L4-5 endplates as well as mild paravertebral edema. There is a disc spacer at this location. Therefore, this could represent postoperative change. However, a developing discitis/osteomyelitis would also have a similar appearance. 4. Additional findings as described above. Assessment & Plan Lumbar epidural abscess following lumbar surgery with fusion, now status post drainage with placement of antibiotic beads. Patient to continue on IV vancomycin pending final culture results and sensitivities. Patient will require prolonged IV antibiotics. Will need PICC line. Will follow.
[2017-10-26] MEDS ORDERED: VANCOMYCIN TROUGH ONE (19:30)
[2017-10-26] MEDS: VANCOMYCIN IV 1,250 MG in SODIUM CHLORIDE 0.9% 250ML 250 ML IV SCH (21:04)
[2017-10-26] MEDS: ATORVASTATIN 10 MG TAB PO SCH (21:04)
[2017-10-26] MEDS: INSULIN GLARGINE SOLOSTAR 100 UNITS/ML 3 ML PEN SC SCH (21:16)
[2017-10-27] MEDS: HYDROCODONE/ACETAMIN 5/325MG TAB PO PRN ×3 (02:54→22:23)
[2017-10-27] MEDS: LEVOTHYROXINE 100 MCG TAB PO SCH (05:39)
[2017-10-27] MEDS ORDERED: BISACODYL 5 MG TABEC PO PRN (06:00)
[2017-10-27] MEDS ORDERED: BISACODYL 10 MG SUPP PR PRN (06:00)
[2017-10-27 07:33] VITALS: BP 134/52; PULSE 63; TEMP 36.5; O2SAT 97
[2017-10-27 07:52] VITALS: O2SAT 97
[2017-10-27 08:13] LABS: BASO % 0.2 %; BASO ABS # 0.03 K/uL (0-0.2); EOS % 2.6 %; HEMATOCRIT 28.8 % (37-47); HEMOGLOBIN 9.7 g/dL (12.0-16.0); IG# 0.07 K/uL (0.00-0.02); LYMPH ABS # 3.11 K/uL (1.2-3.4); MEAN CELL VOLUME 78.7 fL (80-100); MEAN CORPUSCULAR HEMOGLOBIN 26.5 pg (25-34); MEAN CORPUSCULAR HGB CONC 33.7 g/dl (32-36); MEAN PLATELET VOLUME 9.4 fL (7.4-10.4); MONO % 10.7 %; MONO ABS # 1.66 K/uL (0.11-0.59); NEUT ABS # 10.25 K/uL (1.4-6.5); PLATELET COUNT 526 K/uL (130-400); RED CELL DISTRIBUTION WIDTH CV 15.3 % (11.5-14.5); RED CELL DISTRIBUTION WIDTH SD 44.1 fL (36.4-46.3); WHITE BLOOD COUNT 15.52 K/uL (4.8-10.8)
[2017-10-27] MEDS: CEFEPIME IV 2,000 MG in SYRINGE 7.5 ML IV SCH (08:21)
[2017-10-27 08:46] LABS: CREATININE 1.15 mg/dl (0.60-1.20)
[2017-10-27 08:47] LABS: CALCIUM 10.4 mg/dl (8.5-10.1); POTASSIUM 4.6 mmol/L (3.5-5.1)
[2017-10-27] MEDS: CALCIUM 600MG + VIT D 400 IU TAB PO SCH (09:03)
[2017-10-27] MEDS: DOCUSATE SODIUM 100 MG CAP PO SCH ×2 (09:06→22:21)
[2017-10-27] MEDS: AMLODIPINE BESYLATE 5 MG TAB PO SCH (09:08)
[2017-10-27] MEDS: CHOLECALCIFEROL 1000 INTER.UNIT TAB PO SCH (09:09)
[2017-10-27] MEDS: POLYETHYLENE (MIRALAX) 17 GM PACK PO SCH (09:13)
[2017-10-27] MEDS: INSULIN ASPART 100 UNITS/ML 3 ML PEN SC SCH ×4 (09:28→22:20)
[2017-10-27] MEDS: INSULIN GLARGINE SOLOSTAR 100 UNITS/ML 3 ML PEN SC SCH ×2 (09:29→22:20)
[2017-10-27 11:58] VITALS: BP 119/47; PULSE 63; TEMP 36.7; O2SAT 97
--- NOTE | 2017-10-27 13:56 | Progress Note ---
Internal Med Progress Note Date of Service: Oct 27, 2017. Provider Documentation: SUBJECTIVE: Patient denies chest pain or shortness of breath. She denies problems with ambulation OBJECTIVE: General- no distress Eyes - EOMI Neck-no JVD, midline trachea Lungs- CTABL, no wheezing Heart- regular rate Abdomen- soft, nontender, + bowel sounds Extremities- no edema Neuro- awake and alert, verbal ASSESSMENT & PLAN: 87-year-old female with history of diabetes mellitus, stage 3 chronic kidney disease, hypertension, hyperlipidemia who is status post lumbar revision surgery with fusion approximately 3 weeks ago and subsequently there was concern of epidural abscess for which patient is status post induration and drainage with placement of antibiotic beads vancomycin and gentamicin. Patient's cultures of coag negative staph At this point, it does not appear vancomycin is necessary given that there is no evidence for MRSA. Will defer to infectious disease consult on further antibiotic regimen or whether PICC line antibiotics needed DM II HA1C: 7.1 on 09/2017 -continue insulin and fingerstick glucose as per protocol CKD III Cr: 1.1, (~ baseline) -Monitor renal functions while on vancomycin HYPOTHYROIDISM -continue levothyroxine HTN -continue amlodipine DYSLIPIDEMIA -Continue lipitor DVT Prophylaxis -SCD Vital Signs: Date Time Temp Pulse Resp B/P (MAP) Pulse Ox O2 Delivery O2 Flow Rate FiO2 10/27/17 11:58 36.7 63 16 119/47 (71) 97 Room Air 10/27/17 07:52 97 Room Air 10/27/17 07:33 36.5 63 14 134/52 (79) 97 Room Air 10/26/17 23:31 Room Air 10/26/17 22:52 36.7 74 16 128/61 (83) 95 Room Air 10/26/17 16:30 Room Air 10/26/17 15:16 36.6 72 16 115/72 (86) 93 Room Air Lab Results: Results Past 24 Hours Test 10/26/17 17:08 10/26/17 20:33 10/26/17 20:49 10/27/17 07:32 Range/Units Bedside Glucose 176 225 70-90 mg/dl Vancomycin Level Trough 15.1 SEE COMMENT mcg/ml White Blood Count 15.52 4.8-10.8 K/uL Red Blood Count 3.66 4.2-5.4 M/uL Hemoglobin 9.7 12.0-16.0 g/dL Hematocrit 28.8 37-47 % Mean Corpuscular Volume 78.7 80-100 fL Mean Corpuscular Hemoglobin 26.5 25-34 pg Mean Corpuscular Hemoglobin Concent 33.7 32-36 g/dl Platelet Count 526 130-400 K/uL Mean Platelet Volume 9.4 7.4-10.4 fL Neutrophils (%) (Auto) 66.0 % Lymphocytes (%) (Auto) 20.0 % Monocytes (%) (Auto) 10.7 % Eosinophils (%) (Auto) 2.6 % Basophils (%) (Auto) 0.2 % Neutrophils # (Auto) 10.25 1.4-6.5 K/uL Lymphocytes # (Auto) 3.11 1.2-3.4 K/uL Monocytes # (Auto) 1.66 0.11-0.59 K/uL Eosinophils # (Auto) 0.40 0-0.5 K/uL Basophils # (Auto) 0.03 0-0.2 K/uL RDW Standard Deviation 44.1 36.4-46.3 fL RDW Coefficient of Variation 15.3 11.5-14.5 % Immature Granulocyte % (Auto) 0.5 % Immature Granulocyte # (Auto) 0.07 0.00-0.02 K/uL Sodium Level 138 136-145 mmol/L Potassium Level 4.6 3.5-5.1 mmol/L Chloride Level 107 98-107 mmol/L Carbon Dioxide Level 23 21-32 mmol/L Anion Gap 8.0 3-11 mmol/L Blood Urea Nitrogen 32 7-18 mg/dl Creatinine 1.15 0.60-1.20 mg/dl Est Creatinine Clear Calc Drug Dose 34.9 ml/min Estimated GFR () 50.2 Estimated GFR (Non- 43.4 BUN/Creatinine Ratio 27.7 10-20 Random Glucose 118 70-99 mg/dl Calcium Level 10.4 8.5-10.1 mg/dl Magnesium Level 1.8 1.8-2.4 mg/dl Test 10/27/17 08:05 10/27/17 12:02 Range/Units Bedside Glucose 108 160 70-90 mg/dl
[2017-10-27 15:16] VITALS: BP 123/62; PULSE 63; TEMP 36.9; O2SAT 97
--- NOTE | 2017-10-27 15:26 | Progress Note ---
Progress Note Date of Service Oct 27, 2017. Progress Note Patient's back pain is controlled she is struggling with some left anterior knee pain though she is tolerating physical therapy well. Vital signs are stable. LENIN drain decreasing appropriately. On exam she appears very comfortable sitting in chair is good strength testing. She has tenderness palpation of left IT band and trochanter. Assessment status post I&D. Plan at this time will move forward with a PICC line and await final antibiotic recommendations.
--- NOTE | 2017-10-27 15:35 | Infectious Disease Progress Nt ---
Progress Note Date of Service Oct 27, 2017. Subjective Pt evaluation today including: conversation w/ patient, physical exam, chart review, lab review, review of studies, conversation w/ oncology consultant, review of inpatient medication list Back pain improved post surgery, complaining of left knee pain. Remains afebrile. Cultures growing coagulase-negative staph. All Other Systems: Reviewed and Negative Medications Current Inpatient Medications Medications (Trade) Dose Ordered Sig/German Route Start Time Stop Time Status Last Admin Dose Admin Lactated Ringer's 1,000 ml @ 75 mls/hr [id number] IV 10/24/17 14:01 11/23/17 14:00 Future Hold 10/25/17 12:26 75 MLS/HR Atorvastatin Calcium (Lipitor Tab) 10 mg QPM PO 10/24/17 21:00 11/23/17 20:59 10/26/17 21:04 10 MG Calcium/Vitamin D (Caltrate Plus Tab) 1 tab DAILY PO 10/25/17 09:00 11/24/17 08:59 10/27/17 09:03 1 TAB Cholecalciferol (Vitamin D Tab) 1,000 inter.unit DAILY PO 10/25/17 09:00 11/24/17 08:59 10/27/17 09:09 1,000 INTER.UNIT Levothyroxine Sodium (Synthroid Tab) 100 mcg DAILYBB PO 10/25/17 06:00 11/24/17 05:59 10/27/17 05:39 100 MCG Miscellaneous (Iv Fluids Completed) 1 ea PRN PRN N/A 10/24/17 15:00 10/24/18 14:59 Glucose (Glucose 40% Gel) 15-30 GRAMS 15 GRAMS... UD PRN PO 10/24/17 16:15 11/23/17 16:14 Glucose (Glucose Chew Tab) 4-8 Tablets 4 Tabl... UD PRN PO 10/24/17 16:15 11/23/17 16:14 Dextrose (Dextrose 50% 50ML Syringe) 25-50ML 25ML FOR ... UD PRN IV 10/24/17 16:15 11/23/17 16:14 Glucagon (Glucagon Inj) 1 mg UD PRN SQ 10/24/17 16:15 11/23/17 16:14 Carbohydrates (Carbohydrates For Hypoglycemia) 15-30 GRAMS 15 grams if BSG 54-69... UD PRN PO 10/24/17 16:15 11/23/17 16:14 Gadobutrol (Gadavist) 8 mmol UD PRN IV 10/24/17 17:00 10/28/17 16:59 Magnesium Hydroxide (Milk Of Magnesia Susp) 30 ml DAILY PRN PO 10/25/17 14:30 11/24/17 14:29 Docusate Sodium (coLACE CAP) 100 mg BID PO 10/25/17 21:00 11/24/17 20:59 10/27/17 09:06 100 MG Acetaminophen (Tylenol Tab) 650 mg Q6H PRN PO 10/25/17 14:30 11/24/17 14:29 Ondansetron HCl (Zofran Inj) 4 mg Q6 PRN IV 10/25/17 14:30 11/24/17 14:29 Lorazepam (Ativan Tab) 1 mg Q8H PRN PO 10/25/17 14:30 11/24/17 14:29 Lorazepam 1 mg/ Syringe 1 ml @ 1 mls/min Q8 PRN IV 10/25/17 14:30 11/24/17 14:29 Pneumococcal Polysaccharide Vaccine 1 ea PRN PRN N/A 10/25/17 14:30 11/24/17 14:29 Influenza Virus Vacc Triv Types A&B 1 ea PRN PRN N/A 10/25/17 14:30 11/24/17 14:29 Acetaminophen/ Hydrocodone Bitart ([place] 5/325 Tab) 1 tab Q4H PRN PO 10/25/17 14:30 11/08/17 14:29 10/27/17 11:51 1 TAB Polyethylene (Miralax Powder Packet) 17 gm DAILY PO 10/27/17 09:00 11/26/17 08:59 10/27/17 09:13 17 GM Bisacodyl (Dulcolax Tab) 5 mg DAILY PRN PO 10/27/17 06:00 11/26/17 05:59 Bisacodyl (Dulcolax Supp) 10 mg DAILY PRN [place] 10/27/17 06:00 11/26/17 05:59 Acetaminophen (Tylenol Tab) 500 mg Q4H PRN PO 10/25/17 14:30 11/24/17 14:29 Amlodipine Besylate (Norvasc Tab) 5 mg DAILY PO 10/26/17 09:00 11/24/17 08:59 10/27/17 09:08 5 MG Insulin Aspart (novoLOG ASPART) SLIDING SCALE If C... ACHS SC 10/26/17 08:00 11/23/17 17:14 10/27/17 13:12 2 UNITS Insulin Glargine (Lantus Solostar Pen) 9 units Q12 SC 10/26/17 21:00 11/23/17 20:59 10/27/17 09:29 9 UNITS Daptomycin 375 mg/ Syringe 7.5 ml @ 3.75 mls/ min Q24H IV 10/27/17 14:30 11/06/17 14:29 Objective Vital Signs Date Time Temp Pulse Resp B/P (MAP) Pulse Ox O2 Delivery O2 Flow Rate FiO2 10/27/17 15:16 36.9 63 16 123/62 (82) 97 Room Air 10/27/17 11:58 36.7 63 16 119/47 (71) 97 Room Air 10/27/17 07:52 97 Room Air 10/27/17 07:33 36.5 63 14 134/52 (79) 97 Room Air 10/27/17 07:20 Room Air 10/26/17 23:31 Room Air 10/26/17 22:52 36.7 74 16 128/61 (83) 95 Room Air 10/26/17 16:30 Room Air Physical Exam General Appearance: WD/WN, no apparent distress Eyes: normal inspection, EOMI, sclerae normal ENT: normal ENT inspection, pharynx normal Neck: supple, no adenopathy, thyroid normal, trachea midline Respiratory/Chest: chest non-tender, lungs clear, normal breath sounds, no respiratory distress Cardiovascular: regular rate, rhythm, no gallop, no murmur Abdomen: normal bowel sounds, non tender, soft, no organomegaly Extremities: non-tender, no calf tenderness Neurologic/Psychiatric: alert, oriented x 3 Skin: normal color, warm/dry, no rash Lymphatic: no adenopathy Laboratory Results RUN DATE: 10/27/17 [facility] PAGE 1 RUN TIME: 1313 Specimen Inquiry PATIENT: JESSICA JEAN BAPTISTE LOC: [facility] U # : [id number] AGE/SX: 87/F ROOM: [facility] REG : 10/25/[address]: Wiley Marin D.O. : 1930 BED: 1 DIS : STATUS: ADM IN TLOC: SPEC #: [id number] CURRY: 10/25/17 STATUS: RES REQ #: [id number] RECD: 10/25/[address]: Wiley Marin D.O. SOURCE: TISSUE ENTR: 10/25/[address]: Clayton Ventura M.D. [facility]: Yolis Mcfarlane D.O. ORDERED: AER/DAGMAR CULTSMR COMMENTS: SOURCE: EPIDURAL TISSUE Procedure Result Verified Site GRAM STAIN Final 10/26/17-745 RESULT FEW WBCs SEEN NO ORGANISMS SEEN OR AER/DAGMAR CULT Preliminary 10/27/17-1312 Organism 1 COAG NEG STAPHYLOCOCCUS QUANITY RARE SENS NO SENSITIVITY TO FOLLOW Last 24 Hours Test 10/26/17 17:08 10/26/17 20:33 10/26/17 20:49 10/27/17 07:32 Bedside Glucose 176 mg/dl 225 mg/dl Vancomycin Level Trough 15.1 mcg/ml White Blood Count 15.52 K/uL Red Blood Count 3.66 M/uL Hemoglobin 9.7 g/dL Hematocrit 28.8 % Mean Corpuscular Volume 78.7 fL Mean Corpuscular Hemoglobin 26.5 pg Mean Corpuscular Hemoglobin Concent 33.7 g/dl Platelet Count 526 K/uL Mean Platelet Volume 9.4 fL Neutrophils (%) (Auto) 66.0 % Lymphocytes (%) (Auto) 20.0 % Monocytes (%) (Auto) 10.7 % Eosinophils (%) (Auto) 2.6 % Basophils (%) (Auto) 0.2 % Neutrophils # (Auto) 10.25 K/uL Lymphocytes # (Auto) 3.11 K/uL Monocytes # (Auto) 1.66 K/uL Eosinophils # (Auto) 0.40 K/uL Basophils # (Auto) 0.03 K/uL RDW Standard Deviation 44.1 fL RDW Coefficient of Variation 15.3 % Immature Granulocyte % (Auto) 0.5 % Immature Granulocyte # (Auto) 0.07 K/uL Sodium Level 138 mmol/L Potassium Level 4.6 mmol/L Chloride Level 107 mmol/L Carbon Dioxide Level 23 mmol/L Anion Gap 8.0 mmol/L Blood Urea Nitrogen 32 mg/dl Creatinine 1.15 mg/dl Est Creatinine Clear Calc Drug Dose 34.9 ml/min Estimated GFR () 50.2 Estimated GFR (Non- 43.4 BUN/Creatinine Ratio 27.7 Random Glucose 118 mg/dl Calcium Level 10.4 mg/dl Magnesium Level 1.8 mg/dl Test 10/27/17 08:05 10/27/17 12:02 Bedside Glucose 108 mg/dl 160 mg/dl Assessment and Plan Lumbar epidural abscess following lumbar surgery with fusion, now status post drainage with placement of antibiotic beads. Cultures positive for coagulase- negative staph. Suspect patient would be best treated with daptomycin as would allow once daily treatment for outpatient therapy. Will need likely in the range of 6-12 weeks of IV antibiotics. Will follow.
[2017-10-27] MEDS: DAPTOmycin IV 375 MG in SYRINGE 0 ML IV SCH (17:03)
[2017-10-27] MEDS: ATORVASTATIN 10 MG TAB PO SCH (22:21)
[2017-10-27 23:00] VITALS: BP 123/67; PULSE 76; TEMP 36.4; O2SAT 98
[2017-10-28] MEDS: LEVOTHYROXINE 100 MCG TAB PO SCH (06:22)
[2017-10-28 06:35] VITALS: BP 138/68; PULSE 76; TEMP 36.7; O2SAT 97
[2017-10-28 07:55] VITALS: BP 142/78; PULSE 78; TEMP 36.9; O2SAT 97
[2017-10-28] MEDS: INSULIN ASPART 100 UNITS/ML 3 ML PEN SC SCH ×4 (08:02→20:53)
[2017-10-28] MEDS: INSULIN GLARGINE SOLOSTAR 100 UNITS/ML 3 ML PEN SC SCH ×2 (08:04→20:53)
[2017-10-28] MEDS: HYDROCODONE/ACETAMIN 5/325MG TAB PO PRN ×3 (08:12→20:44)
[2017-10-28] MEDS: AMLODIPINE BESYLATE 5 MG TAB PO SCH (08:16)
[2017-10-28] MEDS: CALCIUM 600MG + VIT D 400 IU TAB PO SCH (08:16)
[2017-10-28] MEDS: DOCUSATE SODIUM 100 MG CAP PO SCH ×2 (08:16→20:44)
[2017-10-28] MEDS: CHOLECALCIFEROL 1000 INTER.UNIT TAB PO SCH (08:17)
[2017-10-28] MEDS: POLYETHYLENE (MIRALAX) 17 GM PACK PO SCH (08:17)
[2017-10-28 08:50] VITALS: O2SAT 97
--- NOTE | 2017-10-28 11:35 | Progress Note ---
Internal Med Progress Note Date of Service: Oct 28, 2017. Provider Documentation: SUBJECTIVE: Patient denies chest pain or shortness of breath. She denies problems with ambulation OBJECTIVE: General- no distress Eyes - EOMI Neck-no JVD, midline trachea Lungs- CTABL, no wheezing Heart- regular rate Abdomen- soft, nontender, + bowel sounds Extremities- no edema Neuro- awake and alert, verbal ASSESSMENT & PLAN: 87-year-old female with history of diabetes mellitus, stage 3 chronic kidney disease, hypertension, hyperlipidemia -who is status post lumbar revision surgery with fusion approximately 3 weeks ago and subsequently there was concern of EPIDURAL ABSCESS for which patient IS status post induration and drainage with placement of antibiotic beads vancomycin and gentamicin. -Patient's cultures of coag negative staph -Vancomycin stopped as per infectious disease consult and patient switched to daptomycin starting on 10/27/17 As per recent Infection disease notes Will need likely in the range of 6 to 12 weeks duration -PICC line ordered by patient's primary DM II HA1C: 7.1 on 09/2017 -continue insulin and fingerstick glucose as per protocol CKD III -Cr: 1.1, (~ baseline) HYPOTHYROIDISM -continue levothyroxine HTN -continue amlodipine DYSLIPIDEMIA -Continue lipitor DVT Prophylaxis -SCD Vital Signs: Date Time Temp Pulse Resp B/P (MAP) Pulse Ox O2 Delivery O2 Flow Rate FiO2 10/28/17 08:50 97 Room Air 10/28/17 08:00 Room Air 10/28/17 07:55 36.9 78 16 142/78 (99) 97 Room Air 10/28/17 06:35 36.7 76 18 138/68 (91) 97 Room Air 10/28/17 00:00 Room Air 10/27/17 23:00 36.4 76 18 123/67 (85) 98 Room Air 10/27/17 15:16 36.9 63 16 123/62 (82) 97 Room Air 10/27/17 15:10 Room Air 10/27/17 11:58 36.7 63 16 119/47 (71) 97 Room Air Lab Results: Results Past 24 Hours Test 10/27/17 12:02 10/27/17 16:59 10/27/17 20:12 10/28/17 06:20 Range/Units Bedside Glucose 160 145 200 147 70-90 mg/dl
--- NOTE | 2017-10-28 14:29 | Progress Note ---
Progress Note Date of Service Oct 28, 2017. Progress Note Back pain is controlled leg pain improved vital signs stable. On exam she is in a chair at bedside good strength testing. Assessment status post I&D lumbar spine. Plan at this time will maintain the LENIN drain anticipate discharge to [facility] Wednesday
[2017-10-28] MEDS ORDERED: NURSING VERBAL MED ORDER ONE (14:30)
[2017-10-28] MEDS: DAPTOmycin IV 375 MG in SYRINGE 0 ML IV SCH (14:40)
[2017-10-28 15:13] VITALS: BP 126/70; PULSE 78; TEMP 36.7; O2SAT 97
--- NOTE | 2017-10-28 18:09 | Infectious Disease Progress Nt ---
Progress Note Date of Service Oct 28, 2017. Subjective Pt evaluation today including: conversation w/ patient, physical exam, chart review, lab review, review of studies, conversation w/ benefits sales consultant, review of inpatient medication list Patient with significant improvement in her pain after surgery. Remains afebrile and hemodynamically stable. Cultures all growing coagulase negative Staph. Continues to tolerate antibiotics. All Other Systems: Reviewed and Negative Medications Current Inpatient Medications Medications (Trade) Dose Ordered Sig/German Route Start Time Stop Time Status Last Admin Dose Admin Lactated Ringer's 1,000 ml @ 75 mls/hr [id number] IV 10/24/17 14:01 11/23/17 14:00 Future Hold 10/25/17 12:26 75 MLS/HR Atorvastatin Calcium (Lipitor Tab) 10 mg QPM PO 10/24/17 21:00 11/23/17 20:59 10/27/17 22:21 10 MG Calcium/Vitamin D (Caltrate Plus Tab) 1 tab DAILY PO 10/25/17 09:00 11/24/17 08:59 10/28/17 08:16 1 TAB Cholecalciferol (Vitamin D Tab) 1,000 inter.unit DAILY PO 10/25/17 09:00 11/24/17 08:59 10/28/17 08:17 1,000 INTER.UNIT Levothyroxine Sodium (Synthroid Tab) 100 mcg DAILYBB PO 10/25/17 06:00 11/24/17 05:59 10/28/17 06:22 100 MCG Miscellaneous (Iv Fluids Completed) 1 ea PRN PRN N/A 10/24/17 15:00 10/24/18 14:59 Glucose (Glucose 40% Gel) 15-30 GRAMS 15 GRAMS... UD PRN PO 10/24/17 16:15 11/23/17 16:14 Glucose (Glucose Chew Tab) 4-8 Tablets 4 Tabl... UD PRN PO 10/24/17 16:15 11/23/17 16:14 Dextrose (Dextrose 50% 50ML Syringe) 25-50ML 25ML FOR ... UD PRN IV 10/24/17 16:15 11/23/17 16:14 Glucagon (Glucagon Inj) 1 mg UD PRN SQ 10/24/17 16:15 11/23/17 16:14 Carbohydrates (Carbohydrates For Hypoglycemia) 15-30 GRAMS 15 grams if BSG 54-69... UD PRN PO 10/24/17 16:15 11/23/17 16:14 Magnesium Hydroxide (Milk Of Magnesia Susp) 30 ml DAILY PRN PO 10/25/17 14:30 11/24/17 14:29 Docusate Sodium (coLACE CAP) 100 mg BID PO 10/25/17 21:00 11/24/17 20:59 10/28/17 08:16 100 MG Acetaminophen (Tylenol Tab) 650 mg Q6H PRN PO 10/25/17 14:30 11/24/17 14:29 Ondansetron HCl (Zofran Inj) 4 mg Q6 PRN IV 10/25/17 14:30 11/24/17 14:29 Lorazepam (Ativan Tab) 1 mg Q8H PRN PO 10/25/17 14:30 11/24/17 14:29 Lorazepam 1 mg/ Syringe 1 ml @ 1 mls/min Q8 PRN IV 10/25/17 14:30 11/24/17 14:29 Pneumococcal Polysaccharide Vaccine 1 ea PRN PRN N/A 10/25/17 14:30 11/24/17 14:29 Influenza Virus Vacc Triv Types A&B 1 ea PRN PRN N/A 10/25/17 14:30 11/24/17 14:29 Acetaminophen/ Hydrocodone Bitart ([place] 5/325 Tab) 1 tab Q4H PRN PO 10/25/17 14:30 11/08/17 14:29 10/28/17 13:05 1 TAB Polyethylene (Miralax Powder Packet) 17 gm DAILY PO 10/27/17 09:00 11/26/17 08:59 10/28/17 08:17 17 GM Bisacodyl (Dulcolax Tab) 5 mg DAILY PRN PO 10/27/17 06:00 11/26/17 05:59 Bisacodyl (Dulcolax Supp) 10 mg DAILY PRN AL 10/27/17 06:00 11/26/17 05:59 Acetaminophen (Tylenol Tab) 500 mg Q4H PRN PO 10/25/17 14:30 11/24/17 14:29 Amlodipine Besylate (Norvasc Tab) 5 mg DAILY PO 7/24/18 09:00 11/24/17 08:59 10/28/17 08:16 5 MG Insulin Aspart (novoLOG ASPART) SLIDING SCALE If C... ACHS SC 10/26/17 08:00 11/23/17 17:14 10/28/17 13:37 1 UNITS Insulin Glargine (Lantus Solostar Pen) 9 units Q12 SC 10/26/17 21:00 11/23/17 20:59 10/28/17 08:04 9 UNITS Daptomycin 375 mg/ Syringe 7.5 ml @ 3.75 mls/ min Q24H IV 10/27/17 14:30 11/06/17 14:29 10/28/17 14:40 3.75 MLS/MIN Heparin Sodium (Porcine) (Heparin 10 Unit/ ml 5 ml Flush) 5 ml PRN PRN FLUSH 10/28/17 14:30 11/27/17 14:29 Objective Vital Signs Date Time Temp Pulse Resp B/P (MAP) Pulse Ox O2 Delivery O2 Flow Rate FiO2 10/28/17 16:30 Room Air 10/28/17 15:13 36.7 78 18 126/70 (88) 97 Room Air 10/28/17 08:50 97 Room Air 10/28/17 08:00 Room Air 10/28/17 07:55 36.9 78 16 142/78 (99) 97 Room Air 10/28/17 06:35 36.7 76 18 138/68 (91) 97 Room Air 10/28/17 00:00 Room Air 10/27/17 23:00 36.4 76 18 123/67 (85) 98 Room Air Physical Exam General Appearance: WD/WN, no apparent distress Eyes: normal inspection, EOMI, sclerae normal ENT: normal ENT inspection, pharynx normal Neck: supple, no adenopathy, thyroid normal, trachea midline Respiratory/Chest: chest non-tender, lungs clear, normal breath sounds, no respiratory distress Cardiovascular: regular rate, rhythm, no gallop, no murmur Abdomen: normal bowel sounds, non tender, soft, no organomegaly Extremities: non-tender, no calf tenderness Neurologic/Psychiatric: alert, oriented x 3 Skin: normal color, warm/dry, no rash Lymphatic: no adenopathy Laboratory Results RUN DATE: 10/28/17 [facility] PAGE 1 RUN TIME: 1329 Specimen Inquiry PATIENT: JESSICA JEAN BAPTISTE LOC: [facility] U # : [id number] AGE/SX: 87/F ROOM: [facility] REG : 10/25/[address]: Wiley Marin D.O. : 1930 BED: 1 DIS : STATUS: ADM IN TLOC: SPEC #: [id number] CURRY: 10/25/17 STATUS: RES REQ #: [id number] RECD: 10/25/[address]: Wiley Marin D.O. SOURCE: DRAIN-DEEP ENTR: 10/25/17-1442 [facility] DR: Clayton Ventura M.D. SPDESC: Yolis Mcfarlane D.O. 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 Cultures positive for coagulase- negative staph. Would recommend daptomycin as would allow once daily treatment for outpatient therapy. Will need likely in the range of 6-12 weeks of IV antibiotics. Will follow.
[2017-10-28] MEDS ORDERED: VANCOMYCIN TROUGH ONE (19:30)
[2017-10-28] MEDS: ATORVASTATIN 10 MG TAB PO SCH (20:44)
[2017-10-28 23:03] VITALS: BP 126/71; PULSE 78; TEMP 36.8; O2SAT 97
[2017-10-29] MEDS: LEVOTHYROXINE 100 MCG TAB PO SCH (05:32)
[2017-10-29] MEDS: HYDROCODONE/ACETAMIN 5/325MG TAB PO PRN ×2 (05:42→21:46)
[2017-10-29 06:34] VITALS: BP 127/69; PULSE 79; TEMP 36.8; O2SAT 95
[2017-10-29 07:52] VITALS: BP 120/56; PULSE 82; TEMP 36.4; O2SAT 96
[2017-10-29] MEDS: DOCUSATE SODIUM 100 MG CAP PO SCH ×2 (08:03→21:46)
[2017-10-29] MEDS: CALCIUM 600MG + VIT D 400 IU TAB PO SCH (08:03)
[2017-10-29] MEDS: AMLODIPINE BESYLATE 5 MG TAB PO SCH (08:04)
[2017-10-29] MEDS: POLYETHYLENE (MIRALAX) 17 GM PACK PO SCH (08:04)
[2017-10-29] MEDS: CHOLECALCIFEROL 1000 INTER.UNIT TAB PO SCH (08:04)
[2017-10-29] MEDS: INSULIN ASPART 100 UNITS/ML 3 ML PEN SC SCH ×5 (08:17→21:51)
[2017-10-29] MEDS: INSULIN GLARGINE SOLOSTAR 100 UNITS/ML 3 ML PEN SC SCH ×2 (08:18→21:51)
[2017-10-29 12:29] VITALS: O2SAT 96
[2017-10-29] MEDS ORDERED: HYDR-5688 PO (13:05)
--- NOTE | 2017-10-29 13:05 | Discharge Instructions ---
Discharge Instructions Date of Service Oct 29, 2017. Admission Reason for Admission: Lumbar Wound Infection Discharge Discharge Diagnosis / Problem: lumbar infection Discharge Goals Goal(s): Improve function Activity Recommendations Activity Limitations: per Instructions/Follow-up section . Instructions / Follow-Up Instructions / Follow-Up ACTIVITY RECOMMENDATIONS: SELF CARE INSTRUCTIONS AFTER THORACIC/LUMBAR FUSIONS 1. You may walk to your tolerance. It is good exercise for your legs and back. Expect some back and intermittent leg aches and pains. 2. You may perform "counter-top" level activities (make a sandwich, darius with a project, etc.). 3. No bending or lifting of more than 10 pounds or back twisting of any nature (roll like a log when turning in bed). 4. You may ride in a car for 20-30 minutes at a time. No driving until after your first visit with your doctor. 5. Frequent changes of position and restricting sitting to 30 minutes at a time will help limit the amount of back spasms and stiffness you may experience. 6. You may discontinue the use of ambulatory aids (cane, crutches, etc.) once your strength and confidence allow. 7. You may loss prevention research engineer the shower and let water strike your incision when you arrive home at least once daily. Do not take a tub bath, sit in a hot tub or go into a swimming pool until after your first recheck in the office. SPECIAL CARE INSTRUCTIONS: VERY IMPORTANT TO READ AND REVIEW A. Your surgical incision has been closed with a cosmetic suture under the skin that will dissolve in about 6 weeks. In 14 days, you can use a pair of clean scissors and cut the suture that is left outside of the skin at the ends of your incision. 1. The small skin tapes can be removed 7 days after surgery if they have not fallen off by that point. 2. You may keep the wound open to air as much as possible to promote healing after post-op day number 5 unless told otherwise by your doctor. 3. If you think the wound looks like it is becoming infected (redness or worsening drainage) and/or you are experiencing fever, chill or worsening back pain and muscle spasms, contact the office so that we may evaluate you as soon as possible. B. Complications are uncommon, but please contact us if you have any signs or symptoms of: 1. wound infection (fever higher than 102.5 degrees F, redness, separation of wound, drainage, or increasing pain from the incision) 2. blood clots in legs (pain, swelling, redness and warmth in legs) 3. urinary tract infection (fever higher than 102.5 degrees F, burning upon urination or increased frequency of urination) 4. nerve problems (inability to walk on your toes or heels, numbness, loss of bowel or bladder control) 5. any other symptoms that concern you C. Please call the office at if you have any concerns or questions about your operation or recovery. D. No smoking! Smoking drastically decreases the chance of a solid fusion. E. Do not take any anti-inflammatory medications (Indocin, Advil, Motrin, Aspirin, Naprosyn, etc.) as these may inhibit the chance of a solid fusion. Tylenol is okay to take for pain. MANAGING PAIN AFTER SPINAL SURGERY 1. Narcotic medication is intended for short-term use and will be provided for surgical pain. Surgical pain usually lasts for a period of 4-6 weeks. Narcotic medication includes Percocet, Vicodin, Darvocet, Tylenol #3 or Lortab. 2. Longer-term pain is more appropriately treated with non-narcotic medication such as Tylenol ES. 3. Muscle spasm is not appropriately treated with narcotics. Muscle relaxers such as Soma, Flexeril or Skelaxin can be used along with Tylenol ES. 4. Remember that we all live with some "aches and pains". This is not unusual or uncommon after an injury or as we get older. a. Back pain is expected and may include muscle spasms for 4 to 6 weeks after surgery. The pain should gradually improve. If the pain worsens for no apparent reason, please contact the office. b. Intermittent leg pain may also be experienced and should not be concerned about unless it worsens for no apparent reason. If so, please contact the office. 5. We will provide appropriate medication within the normal guidelines of their prescribed use. We will also be very cautious and aware of potential abuse and extended duration of patients' medication needs. a. Pain medications are for your comfort and to assist with sleep and rest so that the tissue can heal. They are not provided in order to return to normal activity and should not be used through the day. To do so or worsening pain at night can result from ongoing tissue damage and development of tolerance to the prescribed medicine. 6. Please allow 2-3 days to process refills. Prescriptions will not be mailed but must be picked up at the office. FOLLOW UP VISIT: Keep your scheduled follow-up appointment. Any questions, please call the office at . Current Hospital Diet Patient's current hospital diet: Diabetes Type 2 Diet Discharge Diet Recommended Diet: Regular Diet Procedures Procedures Performed: 1. I&D of the lumbar spine #2 placement of stimulator and antibiotic beads made with [employer] Pending Studies Studies pending at discharge: no Laboratory Results Hemoglobin A1c Test 10/01/17 08:14 Range/Units Estimated Average Glucose 157 mg/dl Hemoglobin A1c 7.1 H 4.5-5.6 % Medical Emergencies . Who to Call and When: Medical Emergencies: If at any time you feel your situation is an emergency, please call 911 immediately. . Non-Emergent Contact Non-Emergency issues call your: Primary Care Provider . "Provider Documentation" section prepared by Wiley Marin. .
--- NOTE | 2017-10-29 13:19 | Progress Note ---
Progress Note Date of Service Oct 29, 2017. Progress Note Patient's back pain is controlled leg symptoms improved vital signs stable. On exam she is in the chair at the bedside has good strength testing appears comfortable. Assessment status post lumbar decompression fusion. Plan at this time will continue therapy and anticipate discharge to [facility] tomorrow
[2017-10-29] MEDS: DAPTOmycin IV 375 MG in SYRINGE 0 ML IV SCH (14:12)
[2017-10-29 15:37] VITALS: BP 119/68; PULSE 84; TEMP 36.7; O2SAT 98
--- NOTE | 2017-10-29 17:54 | Consultant Recommendations ---
News Gathering Technician Recommendations Date of Service Oct 29, 2017. News Gathering Technician Recommendations Patient denies chest pain or shortness of breath. She denies problems with ambulation OBJECTIVE: General- no distress Eyes - EOMI Neck-no JVD, midline trachea Lungs- CTABL, no wheezing Heart- regular rate Abdomen- soft, nontender, + bowel sounds Extremities- no edema Neuro- awake and alert, verbal ASSESSMENT & PLAN: 87-year-old female with history of diabetes mellitus, stage 3 chronic kidney disease, hypertension, hyperlipidemia: -who is status post lumbar revision surgery with fusion approximately 3 weeks ago and subsequently there was concern of EPIDURAL ABSCESS for which patient IS status post induration and drainage with placement of antibiotic beads vancomycin and gentamicin. -Patient's cultures of coag negative staph -Vancomycin stopped as per infectious disease consult and patient switched to daptomycin starting on 10/27/17 As per recent Infection disease notes Will need likely in the range of 6 to 12 weeks duration -PICC line ordered by patient's primary surgical team and placed -continue the daptomycin 375 mg IV daily on discharge DM II HA1C: 7.1 on 09/2017 when discharged patient can resume home dose metformin CKD III -Cr: 1.1, (~ baseline) HYPOTHYROIDISM -continue levothyroxine on discharge HTN -continue amlodipine on discharge DYSLIPIDEMIA -Continue lipitor on discharge As per case management notes patient has a bed available at [facility]; where she will receive physical rehabilitation and continue IV antibiotics Discharge as per patient's primary surgical team
[2017-10-29] MEDS: ATORVASTATIN 10 MG TAB PO SCH (21:46)
[2017-10-29 23:20] VITALS: BP 120/73; PULSE 88; TEMP 37.1; O2SAT 96
[2017-10-30] VITALS (8 sets, daily range): BP systolic 105–175; BP diastolic 51–78; PULSE 87–99; TEMP 36.4–37; O2SAT 96–99
[2017-10-30] MEDS: LEVOTHYROXINE 100 MCG TAB PO SCH ×2 (06:00→06:14)
[2017-10-30] MEDS: CHOLECALCIFEROL 1000 INTER.UNIT TAB PO SCH (07:47)
[2017-10-30] MEDS: CALCIUM 600MG + VIT D 400 IU TAB PO SCH (07:47)
[2017-10-30] MEDS: AMLODIPINE BESYLATE 5 MG TAB PO SCH (07:48)
[2017-10-30] MEDS: POLYETHYLENE (MIRALAX) 17 GM PACK PO SCH (07:48)
[2017-10-30] MEDS: DOCUSATE SODIUM 100 MG CAP PO SCH ×3 (07:48→21:03)
[2017-10-30] MEDS: INSULIN ASPART 100 UNITS/ML 3 ML PEN SC SCH ×4 (07:52→21:05)
[2017-10-30] MEDS: INSULIN GLARGINE SOLOSTAR 100 UNITS/ML 3 ML PEN SC SCH ×2 (07:53→21:06)
--- NOTE | 2017-10-30 09:01 | Discharge Summary ---
Orthopedic Discharge Summary Admission Date/Reason Oct 25, 2017 at 11:07 Lumbar Wound Infection. Discharge Date/Disposition Oct 30, 2017 Rehab Diagnosis Principal Diagnosis: Lumbar epidural abscess Admission Physical Exam As per Admitting History & Physical. Hospital Course Patient underwent I&D lumbar spine tolerated this well was taken to the orthopedic floor postoperatively. She progressed very nicely throughout the week. Cultures were obtained and demonstrated coag negative staph. Appropriate antibiotic was placed. A PICC line was placed. She progressed nicely about the week marked improvement of her leg and back pain and was subsequently discharged to rehab. Discharge orders instructions found the chart for further review. Discharge Instructions Please refer to the electronic Patient Visit Report (Discharge Instructions) for additional information.
[2017-10-30] MEDS ORDERED: BISACODYL 10 MG SUPP PR STA (09:10)
[2017-10-30] MEDS: HYDROCODONE/ACETAMIN 5/325MG TAB PO PRN ×2 (09:29→22:19)
[2017-10-30] MEDS ORDERED: SENN-61 PO (11:44)
[2017-10-30] MEDS ORDERED: CLC100 PO (11:44)
--- NOTE | 2017-10-30 11:46 | Progress Note ---
Internal Med Progress Note Date of Service: Oct 30, 2017. Provider Documentation: Patient denies chest pain or shortness of breath. She denies problems with ambulation. Patient reports 4 days of constipation OBJECTIVE: General- no distress Eyes - EOMI Neck-no JVD, midline trachea Lungs- CTABL, no wheezing Heart- regular rate Abdomen- soft, nontender, + bowel sounds Extremities- no edema ASSESSMENT & PLAN: ASSESSMENT & PLAN: 87-year-old female with history of diabetes mellitus, stage 3 chronic kidney disease, hypertension, hyperlipidemia: -who is status post lumbar revision surgery with fusion approximately 3 weeks ago and subsequently there was concern of EPIDURAL ABSCESS for which patient IS status post induration and drainage with placement of antibiotic beads vancomycin and gentamicin. -Patient's cultures of coag negative staph -Vancomycin stopped as per infectious disease consult and patient switched to daptomycin starting on 10/27/17 As per recent Infection disease notes Will need likely in the range of 6 to 12 weeks duration -PICC line ordered by patient's primary surgical team and placed -continue the daptomycin 375 mg IV daily on discharge DM II HA1C: 7.1 on 09/2017 when discharged patient can resume home dose metformin CKD III -Cr: 1.1, (~ baseline) HYPOTHYROIDISM -continue levothyroxine on discharge HTN -continue amlodipine on discharge DYSLIPIDEMIA -Continue lipitor on discharge Constipation -Hospitalist ordered additional bowel regimen while patient in the hospital and made prescriptions for senna and colace As per case management notes patient has a bed available at [facility]; where she will receive physical rehabilitation and continue IV antibiotics Discharge as per patient's primary surgical team Vital Signs: Date Time Temp Pulse Resp B/P (MAP) Pulse Ox O2 Delivery O2 Flow Rate FiO2 10/30/17 09:02 36.8 96 18 124/76 (92) 97 Room Air 10/30/17 08:00 Room Air 10/30/17 07:02 36.9 87 16 131/77 (95) 97 Room Air 10/30/17 00:15 Room Air 10/29/17 23:20 37.1 88 16 120/73 (89) 96 Room Air 10/29/17 15:37 36.7 84 18 119/68 (85) 98 Room Air 10/29/17 15:15 Room Air 10/29/17 12:29 96 Room Air Lab Results: Results Past 24 Hours Test 10/29/17 12:08 10/29/17 17:11 10/29/17 20:49 10/30/17 07:26 Range/Units Bedside Glucose 133 149 202 153 70-90 mg/dl
[2017-10-30] MEDS ORDERED: SODI1ENE RE (11:54)
[2017-10-30] MEDS ORDERED: MINERAL OIL ENEMA 133 ML BTL PR PRN (12:00)
[2017-10-30] MEDS ORDERED: SENNA 8.6 MG TAB PO ONE (12:15)
[2017-10-30] MEDS ORDERED: DOCUSATE SODIUM 100 MG CAP PO ONE (12:15)
[2017-10-30] MEDS: DAPTOmycin IV 375 MG in SYRINGE 0 ML IV SCH (14:39)
[2017-10-30] MEDS ORDERED: AMLODIPINE BESYLATE 5 MG TAB PO ONE (18:15)
--- NOTE | 2017-10-30 18:39 | DIAGNOSTIC IMAGING REPORT ---
KUB CLINICAL HISTORY: Abdominal pain and constipation COMPARISON STUDY: No previous studies for comparison. FINDINGS: There is scattered stool present within the colon. There is no pathologic bowel dilatation. There are postsurgical changes present within the lumbar spine. IMPRESSION: No evidence of pathologic bowel dilatation. Electronically signed by: Werner Todd M.D. 10/30/2017 6:37 PM Dictated Date/Time: 10/30/2017 6:37 PM
[2017-10-30] MEDS: ATORVASTATIN 10 MG TAB PO SCH (21:03)
--- NOTE | 2017-10-30 21:31 | Infectious Disease Progress Nt ---
Progress Note Date of Service Oct 30, 2017. Subjective Pt evaluation today including: conversation w/ patient, physical exam, chart review, lab review, review of studies, conversation w/ underwriting consultant, review of inpatient medication list Offers no new complaints today. Pain controlled. Remains afebrile. Tolerating antibiotic without apparent difficulty. All Other Systems: Reviewed and Negative Medications Current Inpatient Medications Medications (Trade) Dose Ordered Sig/German Route Start Time Stop Time Status Last Admin Dose Admin Lactated Ringer's 1,000 ml @ 75 mls/hr [id number] IV 10/24/17 14:01 11/23/17 14:00 Future Hold 10/25/17 12:26 75 MLS/HR Atorvastatin Calcium (Lipitor Tab) 10 mg QPM PO 10/24/17 21:00 11/23/17 20:59 10/30/17 21:03 10 MG Calcium/Vitamin D (Caltrate Plus Tab) 1 tab DAILY PO 10/25/17 09:00 11/24/17 08:59 10/30/17 07:47 1 TAB Cholecalciferol (Vitamin D Tab) 1,000 inter.unit DAILY PO 10/25/17 09:00 11/24/17 08:59 10/30/17 07:47 1,000 INTER.UNIT Levothyroxine Sodium (Synthroid Tab) 100 mcg DAILYBB PO 10/25/17 06:00 11/24/17 05:59 10/30/17 06:14 100 MCG Miscellaneous (Iv Fluids Completed) 1 ea PRN PRN N/A 10/24/17 15:00 10/24/18 14:59 Glucose (Glucose 40% Gel) 15-30 GRAMS 15 GRAMS... UD PRN PO 10/24/17 16:15 11/23/17 16:14 Glucose (Glucose Chew Tab) 4-8 Tablets 4 Tabl... UD PRN PO 10/24/17 16:15 11/23/17 16:14 Dextrose (Dextrose 50% 50ML Syringe) 25-50ML 25ML FOR ... UD PRN IV 10/24/17 16:15 11/23/17 16:14 Glucagon (Glucagon Inj) 1 mg UD PRN SQ 10/24/17 16:15 11/23/17 16:14 Carbohydrates (Carbohydrates For Hypoglycemia) 15-30 GRAMS 15 grams if BSG 54-69... UD PRN PO 10/24/17 16:15 11/23/17 16:14 Magnesium Hydroxide (Milk Of Magnesia Susp) 30 ml DAILY PRN PO 10/25/17 14:30 11/24/17 14:29 10/30/17 10:26 30 ML Docusate Sodium (coLACE CAP) 100 mg BID PO 10/25/17 21:00 11/24/17 20:59 10/30/17 21:03 100 MG Acetaminophen (Tylenol Tab) 650 mg Q6H PRN PO 10/25/17 14:30 11/24/17 14:29 Ondansetron HCl (Zofran Inj) 4 mg Q6 PRN IV 10/25/17 14:30 11/24/17 14:29 Lorazepam (Ativan Tab) 1 mg Q8H PRN PO 10/25/17 14:30 11/24/17 14:29 Lorazepam 1 mg/ Syringe 1 ml @ 1 mls/min Q8 PRN IV 10/25/17 14:30 11/24/17 14:29 Pneumococcal Polysaccharide Vaccine 1 ea PRN PRN N/A 10/25/17 14:30 11/24/17 14:29 Influenza Virus Vacc Triv Types A&B 1 ea PRN PRN N/A 10/25/17 14:30 11/24/17 14:29 Acetaminophen/ Hydrocodone Bitart ([place] 5/325 Tab) 1 tab Q4H PRN PO 10/25/17 14:30 11/08/17 14:29 10/30/17 09:29 1 TAB Polyethylene (Miralax Powder Packet) 17 gm DAILY PO 10/27/17 09:00 11/26/17 08:59 10/30/17 07:48 17 GM Bisacodyl (Dulcolax Tab) 5 mg DAILY PRN PO 10/27/17 06:00 11/26/17 05:59 10/29/17 08:12 5 MG Bisacodyl (Dulcolax Supp) 10 mg DAILY PRN [place] 10/27/17 06:00 11/26/17 05:59 Acetaminophen (Tylenol Tab) 500 mg Q4H PRN PO 10/25/17 14:30 11/24/17 14:29 Amlodipine Besylate (Norvasc Tab) 5 mg DAILY PO 10/26/17 09:00 11/24/17 08:59 10/30/17 07:48 5 MG Insulin Aspart (novoLOG ASPART) SLIDING SCALE If C... ACHS SC 10/26/17 08:00 11/23/17 17:14 10/30/17 21:05 2 UNITS Insulin Glargine (Lantus Solostar Pen) 9 units Q12 SC 10/26/17 21:00 11/23/17 20:59 10/30/17 21:06 9 UNITS Daptomycin 375 mg/ Syringe 7.5 ml @ 3.75 mls/ min Q24H IV 10/27/17 14:30 11/06/17 14:29 10/30/17 14:39 3.75 MLS/MIN Heparin Sodium (Porcine) (Heparin 10 Unit/ ml 5 ml Flush) 5 ml PRN PRN FLUSH 10/28/17 14:30 11/27/17 14:29 10/29/17 10:49 5 ML Docusate Sodium (coLACE CAP) 100 mg BID PO 10/30/17 21:00 11/29/17 20:59 Senna (Senokot Tab) 8.6 mg QAM PO 10/31/17 09:00 11/30/17 08:59 Mineral Oil (Fleet Oil Enema) 133 ml DAILY PRN [place] 10/30/17 12:00 11/29/17 11:59 10/30/17 13:59 133 ML Objective Vital Signs Date Time Temp Pulse Resp B/P (MAP) Pulse Ox O2 Delivery O2 Flow Rate FiO2 10/30/17 20:59 95 123/69 (87) 10/30/17 19:25 Room Air 10/30/17 16:12 36.4 175/75 (108) 10/30/17 15:44 36.6 95 16 165/75 (105) 99 Room Air 10/30/17 15:21 36.5 96 17 140/78 (98) 99 Room Air 10/30/17 11:49 36.7 99 16 130/70 (90) 98 Room Air 10/30/17 09:02 36.8 96 18 124/76 (92) 97 Room Air 10/30/17 08:00 Room Air 10/30/17 07:02 36.9 87 16 131/77 (95) 97 Room Air 10/30/17 00:15 Room Air 10/29/17 23:20 37.1 88 16 120/73 (89) 96 Room Air Physical Exam General Appearance: WD/WN, no apparent distress Eyes: normal inspection, EOMI, sclerae normal ENT: normal ENT inspection, pharynx normal Neck: supple, no adenopathy, thyroid normal, trachea midline Respiratory/Chest: chest non-tender, lungs clear, normal breath sounds, no respiratory distress Cardiovascular: regular rate, rhythm, no gallop, no murmur Abdomen: normal bowel sounds, non tender, soft, no organomegaly Extremities: non-tender, no calf tenderness Neurologic/Psychiatric: alert, normal mood/affect, oriented x 3 Skin: normal color, warm/dry, no rash Lymphatic: no adenopathy Laboratory Results RUN DATE: 10/29/17 [facility] PAGE 1 RUN TIME: 1342 Specimen Inquiry PATIENT: JESSICA JEAN BAPTISTE LOC: [employer]PER[employer] U # : [id number] AGE/SX: 87/F ROOM: [facility] REG : 10/25/[address]: Wiley MarinD.OKay : 1930 BED: 1 DIS : STATUS: ADM IN TLOC: SPEC #: [id number] CURRY: 10/25/17 STATUS: RES REQ #: [id number] RECD: 10/25/17 [facility] DR: Wiley Marin D.O. SOURCE: DRAIN-DEEP ENTR: 10/25/[address]: Clayton Ventura M.D. [facility]: Yolis Mcfarlane D.O. ORDERED: AER/DAGMAR CULTSMR COMMENTS: SOURCE: LUMBAR L4-L5 EPIDURAL FLUID Procedure Result Verified Site GRAM STAIN Final 10/26/17 RESULT MANY WBCs SEEN NO ORGANISMS SEEN OR AER/DAGMAR CULT Preliminary 10/29/17 Organism 1 COAG NEG STAPHYLOCOCCUS QUANITY FEW SENS NO SENSITIVITY TO FOLLOW Last 24 Hours Test 10/30/17 07:26 10/30/17 11:55 10/30/17 16:05 10/30/17 17:26 Bedside Glucose 153 mg/dl 153 mg/dl 179 mg/dl 200 mg/dl Test 10/30/17 20:45 Bedside Glucose 195 mg/dl KUB CLINICAL HISTORY: Abdominal pain and constipation COMPARISON STUDY: No previous studies for comparison. FINDINGS: There is scattered stool present within the colon. There is no pathologic bowel dilatation. There are postsurgical changes present within the lumbar spine. IMPRESSION: No evidence of pathologic bowel dilatation. Electronically signed by: Werner Todd M.D. 10/30/2017 6:37 PM Dictated Date/Time: 10/30/2017 6:37 PM The status of this report is Signed. Draft = Not yet reviewed or approved by Radiologist. 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 Cultures positive for coagulase- negative staph. Would recommend daptomycin as would allow once daily treatment for outpatient therapy. Will need likely in the range of 6-12 weeks of IV antibiotics. Will follow.
[2017-10-31] MEDS: LEVOTHYROXINE 100 MCG TAB PO SCH (05:52)
[2017-10-31 07:45] VITALS: BP 130/71; PULSE 87; TEMP 36.7; O2SAT 100
[2017-10-31] MEDS: DOCUSATE SODIUM 100 MG CAP PO SCH ×2 (09:00→09:08)
[2017-10-31] MEDS ORDERED: SENNA 8.6 MG TAB PO SCH (09:00)
[2017-10-31] MEDS: CALCIUM 600MG + VIT D 400 IU TAB PO SCH (09:08)
[2017-10-31] MEDS: POLYETHYLENE (MIRALAX) 17 GM PACK PO SCH (09:08)
[2017-10-31] MEDS: CHOLECALCIFEROL 1000 INTER.UNIT TAB PO SCH (09:09)
[2017-10-31] MEDS: AMLODIPINE BESYLATE 5 MG TAB PO SCH (09:09)
[2017-10-31] MEDS: INSULIN ASPART 100 UNITS/ML 3 ML PEN SC SCH ×2 (09:13→13:00)
[2017-10-31] MEDS: INSULIN GLARGINE SOLOSTAR 100 UNITS/ML 3 ML PEN SC SCH (09:13)
--- NOTE | 2017-10-31 09:29 | Progress Note ---
Internal Med Progress Note Date of Service: Oct 31, 2017. Provider Documentation: Subjective Yesterday patient was set to be discharged as per orthopedics when patient became very concerned about constipation of 4 days. She apparently was try very hard to strain to make bowel movement. Her blood pressure went up. The KUB from yesterday before the bowel movement does not have acute pathology. After given multiple bowel regimen and enemas, patient reports being able to make bowel movement yesterday night. Today patient denies acute discomfort. She Patient denies chest pain or shortness of breath. She denies problems with ambulation. OBJECTIVE: General- no distress Eyes - EOMI Neck-no JVD, midline trachea Lungs- CTABL, no wheezing Heart- regular rate Abdomen- soft, nontender, + bowel sounds Extremities- mild edema of lower extremities, no calf tenderness ASSESSMENT & PLAN: ASSESSMENT & PLAN: 87-year-old female with history of diabetes mellitus, stage 3 chronic kidney disease, hypertension, hyperlipidemia: -who is status post lumbar revision surgery with fusion approximately 3 weeks ago and subsequently there was concern of EPIDURAL ABSCESS for which patient is status post induration and drainage with placement of antibiotic beads vancomycin and gentamicin. -Patient's cultures of coag negative staph -Vancomycin stopped as per infectious disease consult and patient switched to daptomycin starting on 10/27/17 As per recent Infection disease notes Will need likely in the range of 6 to 12 weeks duration -PICC line ordered by patient's primary surgical team and placed -continue the daptomycin 375 mg IV daily on discharge DM II HA1C: 7.1 on 09/2017 when discharged patient can resume home dose metformin CKD III -Cr: 1.1, (~ baseline) HYPOTHYROIDISM -continue levothyroxine on discharge HTN -continue amlodipine on discharge DYSLIPIDEMIA -Continue lipitor on discharge Constipation -Hospitalist ordered additional bowel regimen while patient in the hospital and made prescriptions for bowel regimen as outpatient Mild lower extremity edema -encourage ambulation as tolerated and leg elevation; patient denies chest pain or shortness of breath; likely venous stasis Discharge as per patient's primary surgical team Vital Signs: Date Time Temp Pulse Resp B/P (MAP) Pulse Ox O2 Delivery O2 Flow Rate FiO2 10/31/17 07:45 36.7 87 16 130/71 (90) 100 Room Air 10/31/17 07:30 Room Air 10/30/17 23:50 Room Air 10/30/17 23:16 37.0 96 17 105/51 (69) 96 Room Air 10/30/17 20:59 95 123/69 (87) 10/30/17 19:25 Room Air 10/30/17 16:12 36.4 175/75 (108) 10/30/17 15:44 36.6 95 16 165/75 (105) 99 Room Air 10/30/17 15:21 36.5 96 17 140/78 (98) 99 Room Air 10/30/17 11:49 36.7 99 16 130/70 (90) 98 Room Air Lab Results: Results Past 24 Hours Test 10/30/17 11:55 10/30/17 16:05 10/30/17 17:26 10/30/17 20:45 Range/Units Bedside Glucose 153 179 200 195 70-90 mg/dl Test 10/31/17 07:57 Range/Units Bedside Glucose 141 70-90 mg/dl
--- NOTE | 2017-10-31 10:53 | Progress Note ---
Progress Note Date of Service Oct 31, 2017. Progress Note Patient's back pain is controlled leg pain improved vital signs stable bowels working very well and she is much more comfortable. On exam she is in a chair at bedside is good strength testing appears comfortable. Plan at this time she is discharged to [facility] today.
[2017-10-31 11:50] VITALS: BP 130/71; PULSE 87; TEMP 36.7; O2SAT 100
[2017-10-31] MEDS: HYDROCODONE/ACETAMIN 5/325MG TAB PO PRN (13:00)
[2017-10-31] MEDS: DAPTOmycin IV 375 MG in SYRINGE 0 ML IV SCH (14:07)
== END 2017-10-31 14:17 | DRG 862 ==
LOC: C.MSW 13:54 → INTOOBSV 13:54 → OBSVTOIN 10-25 11:07
PROVIDERS: ADMIT Orthopaedic Surgery Orthopaedic Surgery of the Spine; ATTEND Orthopaedic Surgery Orthopaedic Surgery of the Spine
PROC: 0J9700Z Drainage of Back Subcutaneous Tissue and Fascia with Drainage Device, Open Approach (ICD-10-PCS; principal; 2017-10-25 13:45)
PROC: 02HV33Z Insertion of Infusion Device into Superior Vena Cava, Percutaneous Approach (ICD-10-PCS; 2017-10-28)
DX: T81.4XXA Infection following a procedure, initial encounter (principal); G06.1 Intraspinal abscess and granuloma; I12.9 Hypertensive chronic kidney disease with stage 1 through stage 4 chronic kidney disease, or unspecified chronic kidney disease; N18.3 Chronic kidney disease, stage 3 (moderate); E11.21 Type 2 diabetes mellitus with diabetic nephropathy; Z88.0 Allergy status to penicillin; Z88.5 Allergy status to narcotic agent; Z88.8 Allergy status to other drugs, medicaments and biological substances; B95.8 Unspecified staphylococcus as the cause of diseases classified elsewhere; Z96.652 Presence of left artificial knee joint; E03.9 Hypothyroidism, unspecified; Z98.1 Arthrodesis status; K59.00 Constipation, unspecified; Y83.8 Other surgical procedures as the cause of abnormal reaction of the patient, or of later complication, without mention of misadventure at the time of the procedure; Y92.018 Other place in single-family (private) house as the place of occurrence of the external cause